=== PATIENT | male | born 1970 | race African-American/Black ===

== ENCOUNTER 2019-06-19 10:42 | Emergency (ER) | payer SELFPAY ==
[~2019-06-19] VITALS: Ht 180.3 cm; Wt 108.9 kg
[~2019-06-19 10:42] MED LIST: ASPI-630 PO; CARV12.511 PO; FURO-68 PO; LEVO500T59 PO; LISI-334 PO; POTA20TA4 PO; PRED-220 PO
--- NOTE | 2019-06-19 11:24 | PHYS DOC ---
Past Medical History Past Medical History: CHF, Hypertension Past Surgical History: No Surgical History Alcohol Use: Occasionally Drug Use: None Adult General Chief Complaint Chief Complaint: SHORTNESS OF BREATH HPI HPI Patient is a 48 year old AA who presents to the emergency Department today with complaints of shortness of breath for the last 2 weeks. Patient states his symptoms have gradually increased. He has history of congestive heart failure and states that he has been taking his Lasix as prescribed. He has been out of one of his blood pressure medications for the last 2 weeks. Patient denies any productive cough, fever, abdominal pain, chest pain, palpitations, nausea, vomiting, diarrhea, or abdominal pain. He denies any recent travel via air or long car rides. Patient denies any increase in lower extremity swelling. He states that 6 months ago he was diagnosed with left ventricle failure and admit ninoska to a different facility for a brief hospital stay at that time. He currently denies any pain, he reports generalized weakness and fatigue. Review of Systems Review of Systems Constitutional: Denies fever or chills [] Eyes: Denies change in visual acuity, redness, or eye pain [] HENT: Denies nasal congestion or sore throat [] Respiratory: Denies cough or wheezing, see HPI Cardiovascular: No additional information not addressed in HPI [] GI: Denies abdominal pain, nausea, vomiting, or diarrhea [] : Denies dysuria or hematuria [] Musculoskeletal: Denies back pain or joint pain [] Integument: Denies rash or skin lesions [] Neurologic: Denies headache, focal weakness or sensory changes [] Complete systems were reviewed and found to be within normal limits, except as documented in this note. Allergies Allergies Allergies Coded Allergies Type Severity Reaction Last Updated Verified No Known Drug Allergies 07/05/15 No Physical Exam Physical Exam Constitutional: Well developed, well nourished, no acute distress, non-toxic appearance. [] HENT: Normocephalic, atraumatic, bilateral external ears normal, oropharynx moist, no oral exudates, nose normal. [] Eyes: PERRLA, EOMI, conjunctiva normal, no discharge. [] Neck: Normal range of motion, no tenderness, supple, no stridor. [] Cardiovascular:Heart rate regular tachycardic rhythm, no murmur [] Lungs & Thorax: Bilateral breath sounds clear to auscultation, no retractions, no increased work of breathing [] Abdomen: soft, no tenderness, no masses, no pulsatile masses. [] Skin: Warm, dry, no erythema, no rash. [] Back: No tenderness Extremities: No tenderness, no cyanosis, no clubbing, ROM intact, no edema. [] Neurologic: Alert and oriented X 3, no focal deficits noted. [] Psychologic: Affect normal, judgement normal, mood normal. [] Current Patient Data Vital Signs Vital Signs Date Time Temp Pulse Resp B/P (MAP) Pulse Ox O2 Delivery O2 Flow Rate FiO2 06/19/19 12:30 103 18 128/81 (97) 97 Room Air 06/19/19 11:12 98.6 98.6 Lab Values Laboratory Tests Test 06/19/19 11:29 White Blood Count 5.9 x10^3/uL (4.0-11.0) Red Blood Count 4.49 x10^6/uL (4.30-5.70) Hemoglobin 14.2 g/dL (13.0-17.5) Hematocrit 42.3 % (39.0-53.0) Mean Corpuscular Volume 94 fL (79-100) Mean Corpuscular Hemoglobin 32 pg (25-35) Mean Corpuscular Hemoglobin Concent 34 g/dL (31-37) Red Cell Distribution Width 14.2 % (11.5-14.5) Platelet Count 193 x10^3/uL (140-400) Neutrophils (%) (Auto) 59 % (31-73) Lymphocytes (%) (Auto) 22 % (24-48) L Monocytes (%) (Auto) 11 % (0-9) H Eosinophils (%) (Auto) 6 % (0-3) H Basophils (%) (Auto) 2 % (0-3) Neutrophils # (Auto) 3.5 x10^3/uL (1.8-7.7) Lymphocytes # (Auto) 1.3 x10^3/uL (1.0-4.8) Monocytes # (Auto) 0.6 x10^3/uL (0.0-1.1) Eosinophils # (Auto) 0.4 x10^3/uL (0.0-0.7) Basophils # (Auto) 0.1 x10^3/uL (0.0-0.2) Prothrombin Time 13.2 SEC (11.7-14.0) Prothrombin Time INR 1.0 (0.8-1.1) Activated Partial Thromboplast Time 25 SEC (24-38) Sodium Level 142 mmol/L (136-145) Potassium Level 4.7 mmol/L (3.5-5.1) Chloride Level 105 mmol/L (98-107) Carbon Dioxide Level 25 mmol/L (21-32) Anion Gap 12 (6-14) Blood Urea Nitrogen 11 mg/dL (8-26) Creatinine 1.0 mg/dL (0.7-1.3) Estimated GFR (Cockcroft-Gault) 95.7 BUN/Creatinine Ratio 11 (6-20) Glucose Level 202 mg/dL (70-99) H Calcium Level 8.3 mg/dL (8.5-10.1) L Magnesium Level 1.9 mg/dL (1.8-2.4) Total Bilirubin 0.3 mg/dL (0.2-1.0) Aspartate Amino Transferase (AST) 18 U/L (15-37) Alanine Aminotransferase (ALT) 19 U/L (16-63) Alkaline Phosphatase 59 U/L (46-116) Troponin I Quantitative < 0.017 ng/mL (0.000-0.055) IU-Mob-H-Type Natriuretic Peptide 1621 pg/mL (0-124) H Total Protein 6.7 g/dL (6.4-8.2) Albumin 3.5 g/dL (3.4-5.0) Albumin/Globulin Ratio 1.1 (1.0-1.7) Laboratory Tests 06/19/19 11:29 Laboratory Tests 06/19/19 11:29 EKG EKG 1122- sinus tachycardia, rate 101, NO STEMI read by Dr. Avila[] Radiology/Procedures Radiology/Procedures PROCEDURE: CHEST PA & LATERAL CHEST PA LATERAL Clinical indications: Shortness of air. COMPARISON: July 19, 2015. Findings: Mild bilateral peribronchial thickening is seen. No lung consolidation or lung mass or pleural effusion or pneumothorax is evident. Mild cardiomegaly is evident. The pulmonary vasculature, mediastinum and both vivian are otherwise unremarkable. The osseous structures are intact. Impression: Acute bronchitis. No consolidative pneumonia. Mild cardiomegaly. [] Course & Med Decision Making Course & Med Decision Making Pertinent Labs and Imaging studies reviewed. (See chart for details) [] Dragon Disclaimer Dragon Disclaimer This electronic medical record was generated, in whole or in part, using a voice recognition dictation system. Departure Departure Impression: Primary Impression: Bronchitis Disposition: 01 HOME, SELF-CARE Condition: STABLE Referrals: JOHNNY LUNA MD Patient Instructions: Acute Bronchitis, [id number] Additional Instructions: Fill the prescription and use as directed. Follow up with Dr. Luna tomorrow. Return to the ER if symptoms worsen. Scripts Azithromycin (AZITHROMYCIN TABLET) 250 Mg Tablet 1 PKG PO UD for 5 Days, #6 TAB 0 Refills 2 the first day followed by 1 for days 2-5 Prov: FELICITAS SALDIVAR APRN 06/19/19 FELICITAS SALDIVAR APRN Jun 19, 2019 11:24
[2019-06-19 11:40] LABS: BASO # 0.1 x10^3/uL (0.0-0.2); BASO % 2 % (0-3); EOS # 0.4 x10^3/uL (0.0-0.7); EOS % 6 % (0-3); HEMATOCRIT 42.3 % (39.0-53.0); HEMOGLOBIN 14.2 g/dL (13.0-17.5); LYMPH # 1.3 x10^3/uL (1.0-4.8); LYMPH % 22 % (24-48); MEAN CORPUSCULAR HEMOGLOBIN 32 pg (25-35); MEAN CORPUSCULAR HGB CONC 34 g/dL (31-37); MEAN CORPUSCULAR VOLUME 94 fL (79-100); MONO # 0.6 x10^3/uL (0.0-1.1); MONO % 11 % (0-9); NEUT # 3.5 x10^3/uL (1.8-7.7); NEUT % 59 % (31-73); PLATELET COUNT 193 x10^3/uL (140-400); RED BLOOD COUNT 4.49 x10^6/uL (4.30-5.70); RED CELL DISTRIBUTION WIDTH 14.2 % (11.5-14.5); WHITE BLOOD COUNT 5.9 x10^3/uL (4.0-11.0)
[2019-06-19 11:49] LABS: CALCIUM 8.3 mg/dL (8.5-10.1); GFR 95.7; POTASSIUM 4.7 mmol/L (3.5-5.1)
[2019-06-19 11:55] LABS: ALBUMIN 3.5 g/dL (3.4-5.0); ALBUMIN/GLOBULIN RATIO 1.1 (1.0-1.7); MAGNESIUM 1.9 mg/dL (1.8-2.4); TOTAL BILIRUBIN 0.3 mg/dL (0.2-1.0); TOTAL PROTEIN 6.7 g/dL (6.4-8.2)
[2019-06-19 11:57] LABS: PROTHROMBIN TIME PATIENT 13.2 SEC (11.7-14.0)
--- NOTE | 2019-06-19 12:00 | EKG ---
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
--- NOTE | 2019-06-19 12:03 | RAD ---
CHEST PA LATERAL Clinical indications: Shortness of air. COMPARISON: July 19, 2015. Findings: Mild bilateral peribronchial thickening is seen. No lung consolidation or lung mass or pleural effusion or pneumothorax is evident. Mild cardiomegaly is evident. The pulmonary vasculature, mediastinum and both vivian are otherwise unremarkable. The osseous structures are intact. Impression: Acute bronchitis. No consolidative pneumonia. Mild cardiomegaly. Electronically signed by: Cecil Massey MD (06/19/2019 12:00 PM) [id number]
[2019-06-19 12:30] VITALS: BP 128/81
[2019-06-19] MEDS ORDERED: AZIT250T6 PO (12:53)
== END 2019-06-19 13:00 | disposition home or self-care (01) ==
LOC: ER 10:42
DX: J40 Bronchitis, not specified as acute or chronic (principal); I11.0 Hypertensive heart disease with heart failure; I50.9 Heart failure, unspecified
CPT/HCPCS: 36415; 71046; 80053; 83735; 83880; 84484; 85025; 85610; 85730; 93005; 99285-25

== ENCOUNTER 2019-07-04 07:35 | Inpatient (IN) | payer SELFPAY ==
[~2019-07-04] VITALS: Ht 180.3 cm; Wt 109.8 kg
[~2019-07-04 07:35] MED LIST changes: +AZIT250T6 PO
--- NOTE | 2019-07-04 07:55 | PHYS DOC ---
Past Medical History Past Medical History: Bronchitis, CHF, Hypertension Past Surgical History: No Surgical History Additional Past Surgical Histo: HERNIA Alcohol Use: Heavy Drug Use: None Adult General Chief Complaint Chief Complaint: SHORTNESS OF BREATH HPI HPI 48 yo male presents to the ER with complaints of SOB, abdominal pain, nausea. Patient states ongoing x 4 days, nothing makes worse, nothing makes better. Patient denies chest pain. Review of Systems Review of Systems Constitutional: Denies fever or chills [] Eyes: Denies change in visual acuity, redness, or eye pain [] HENT: Denies nasal congestion or sore throat [] Respiratory: Denies cough or shortness of breath [] Cardiovascular: No additional information not addressed in HPI [] GI: Denies abdominal pain, nausea, vomiting, bloody stools or diarrhea [] : Denies dysuria or hematuria [] Musculoskeletal: Denies back pain or joint pain [] Integument: Denies rash or skin lesions [] Neurologic: Denies headache, focal weakness or sensory changes [] Endocrine: Denies polyuria or polydipsia [] All other systems were reviewed and found to be within normal limits, except as documented in this note. Current Medications Current Medications Current Medications Medications (Trade) Dose Ordered Sig/Porsche Start Time Stop Time Status Last Admin Dose Admin Info (CONTRAST GIVEN -- Rx MONITORING) 1 each PRN DAILY PRN 07/04/19 09:45 07/06/19 09:44 Iohexol (Omnipaque 300 Mg/ml) 75 ml 1X ONCE 07/04/19 09:45 07/04/19 09:47 DC 07/04/19 10:10 75 ML Iohexol (Omnipaque 350 Mg/ml) 75 ml 1X ONCE 07/04/19 09:45 07/04/19 09:46 DC Morphine Sulfate (Morphine Sulfate) 4 mg 1X ONCE 07/04/19 09:00 07/04/19 09:01 DC Ondansetron HCl (Zofran) 4 mg 1X ONCE 07/04/19 09:00 07/04/19 09:01 DC Allergies Allergies Allergies Coded Allergies Type Severity Reaction Last Updated Verified No Known Drug Allergies 07/05/15 No Physical Exam Physical Exam Constitutional: Well developed, well nourished, no acute distress, non-toxic a ppearance. [] HENT: Normocephalic, atraumatic, bilateral external ears normal, oropharynx moist, no oral exudates, nose normal. [] Cardiovascular:Heart rate regular rhythm, no murmur [] Lungs & Thorax: Bilateral breath sounds clear to auscultation [] Abdomen: distention, no masses appreciated, nontender on exam Skin: Warm, dry, no erythema, no rash. [] Back: No tenderness, no CVA tenderness. [] Extremities: No tenderness, no cyanosis, no clubbing, ROM intact, no edema. [] Neurologic: Alert and oriented X 3, no focal deficits noted. [] Psychologic: Affect normal, judgement normal, mood normal. [] Current Patient Data Vital Signs Vital Signs Date Time Temp Pulse Resp B/P (MAP) Pulse Ox O2 Delivery O2 Flow Rate FiO2 07/04/19 07:38 97.4 93 20 146/99 (115) 96 Room Air 97.4 Lab Values Laboratory Tests Test 07/04/19 08:03 White Blood Count 6.1 x10^3/uL (4.0-11.0) Red Blood Count 4.61 x10^6/uL (4.30-5.70) Hemoglobin 14.4 g/dL (13.0-17.5) Hematocrit 43.1 % (39.0-53.0) Mean Corpuscular Volume 94 fL (79-100) Mean Corpuscular Hemoglobin 31 pg (25-35) Mean Corpuscular Hemoglobin Concent 34 g/dL (31-37) Red Cell Distribution Width 14.1 % (11.5-14.5) Platelet Count 250 x10^3/uL (140-400) Neutrophils (%) (Auto) 58 % (31-73) Lymphocytes (%) (Auto) 24 % (24-48) Monocytes (%) (Auto) 11 % (0-9) H Eosinophils (%) (Auto) 6 % (0-3) H Basophils (%) (Auto) 1 % (0-3) Neutrophils # (Auto) 3.5 x10^3/uL (1.8-7.7) Lymphocytes # (Auto) 1.5 x10^3/uL (1.0-4.8) Monocytes # (Auto) 0.7 x10^3/uL (0.0-1.1) Eosinophils # (Auto) 0.4 x10^3/uL (0.0-0.7) Basophils # (Auto) 0.1 x10^3/uL (0.0-0.2) Sodium Level 141 mmol/L (136-145) Potassium Level 4.0 mmol/L (3.5-5.1) Chloride Level 102 mmol/L (98-107) Carbon Dioxide Level 29 mmol/L (21-32) Anion Gap 10 (6-14) Blood Urea Nitrogen 19 mg/dL (8-26) Creatinine 1.2 mg/dL (0.7-1.3) Estimated GFR (Cockcroft-Gault) 77.5 BUN/Creatinine Ratio 16 (6-20) Glucose Level 95 mg/dL (70-99) Calcium Level 8.1 mg/dL (8.5-10.1) L Total Bilirubin 0.5 mg/dL (0.2-1.0) Aspartate Amino Transferase (AST) 39 U/L (15-37) H Alanine Aminotransferase (ALT) 51 U/L (16-63) Alkaline Phosphatase 78 U/L (46-116) WI-Pgw-Y-Type Natriuretic Peptide 1829 pg/mL (0-124) H Total Protein 6.4 g/dL (6.4-8.2) Albumin 3.1 g/dL (3.4-5.0) L Albumin/Globulin Ratio 0.9 (1.0-1.7) L Laboratory Tests 07/04/19 08:03 Laboratory Tests 07/04/19 08:03 EKG EKG EKG reviewed, NSR, left axis deviation, nonurgent EKG[] Interpretation Time: 0800 Radiology/Procedures Radiology/Procedures [facility] [address] [place], [place] [id number] IMAGING REPORT Signed PATIENT: RICARDO HUTSON ACCOUNT: [id number] : 1970 LOCATION: ER AGE: 48 SEX: M EXAM STATUS: REG ER ORD. PHYSICIAN: EVELYN SMITH MD REASON: chest pain PROCEDURE: CHEST AP ONLY CHEST AP ONLY History: Chest pain Comparison: June 19, 2019 Findings: No consolidation or pleural effusion. Enlarged cardiac size. Impression: 1. No acute cardiopulmonary process. 2. Enlarged cardiac size, unchanged. Electronically signed by: Kevin Hicks DO (07/04/2019 8:03 AM) [facility] DICTATED and SIGNED BY: KEVIN HICKS DO DATE: 07/04/19 0803 [] [facility] [address] [place] [address] IMAGING REPORT Signed PATIENT: RICARDO HUTSON ACCOUNT: [id number] : 1970 LOCATION: ER AGE: 48 SEX: M EXAM STATUS: REG ER ORD. PHYSICIAN: EVELYN SMITH MD REASON: abdominal pain PROCEDURE: CT ABD PELV W/ IV CONTRST ONLY CT ABD PELV W/ IV CONTRST ONLY History: Abdominal pain Comparison: None. Technique: After administration of intravenous contrast, helical CT of the abdomen and pelvis was performed from the lung bases through the ischial tuberosities. Coronal and sagittal reconstructions were obtained. 75 mL of Omnipaque 300 were used. One or more of the following dose reduction techniques were utilized: Automated exposure control (AEC), Adjustment of mA and/or kV according to patient size, Use of iterative reconstruction technique such as ASiR, CT scan done according to ALARA and image gently/image wisely Abdomen Findings: The visualized lung bases are clear. Cardiomegaly. Moderate free fluid scattered throughout the abdomen. No focal hepatic lesion. Gallbladder is decompressed. Homogeneous pancreatic enhancement. Normal spleen. Normal adrenal glands. Symmetric renal enhancement. No hydronephrosis. Stomach is decompressed and poorly evaluated. No dilated large or small bowel loops. Appendix not seen. Normal caliber abdominal aorta. Minimal aortic atherosclerotic disease. There is no mesenteric or retroperitoneal adenopathy. Pelvis Findings: Urinary bladder is normal. There is no pelvic or inguinal adenopathy. Degenerative changes of the spine. Body wall edema. IMPRESSION: 1. There is a moderate amount of free fluid scattered throughout the abdomen. No organized collection. 2. No other focal acute abdominal process is seen. Normal caliber bowel. Electronically signed by: Selene Tadeo MD (07/04/2019 10:30 AM) [facility] DICTATED and SIGNED BY: SELENE TADEO MD DATE: 07/04/19 1030 Course & Med Decision Making Course & Med Decision Making Pertinent Labs and Imaging studies reviewed. (See chart for details) []48 yo male presents to the ER with complaints of SOB, abdominal pain, nausea. Patient states ongoing x 4 days, nothing makes worse, nothing makes better. Patient denies chest pain. Labs/Imaging reviewed BNP 1829 Morphine 4mg/Zofran 4mg IV x [address] reviewed with large amount of ascites Dragon Disclaimer Dragon Disclaimer This electronic medical record was generated, in whole or in part, using a voice recognition dictation system. Departure Departure Impression: Primary Impression: Abdominal pain Additional Impression: Ascites Disposition: ADMITTED INPATIENT Admitting Physician: HIMS Condition: STABLE Referrals: NO PCP (PCP) Problem Qualifiers Primary Impression: Abdominal pain Abdominal location: generalized Qualified Codes: R10.84 - Generalized abdominal pain Additional Impression: Ascites Ascites type: other type Qualified Codes: R18.8 - Other ascites EVELYN SMITH MD Jul 04, 2019 07:55
--- NOTE | 2019-07-04 08:06 | RAD ---
CHEST AP ONLY History: Chest pain Comparison: June 19, 2019 Findings: No consolidation or pleural effusion. Enlarged cardiac size. Impression: 1. No acute cardiopulmonary process. 2. Enlarged cardiac size, unchanged. Electronically signed by: Kevin Odom DO (07/04/2019 8:03 AM) [facility]
[2019-07-04 08:20] LABS: BASO # 0.1 x10^3/uL (0.0-0.2); BASO % 1 % (0-3); EOS # 0.4 x10^3/uL (0.0-0.7); EOS % 6 % (0-3); HEMATOCRIT 43.1 % (39.0-53.0); HEMOGLOBIN 14.4 g/dL (13.0-17.5); LYMPH # 1.5 x10^3/uL (1.0-4.8); LYMPH % 24 % (24-48); MEAN CORPUSCULAR HEMOGLOBIN 31 pg (25-35); MEAN CORPUSCULAR HGB CONC 34 g/dL (31-37); MEAN CORPUSCULAR VOLUME 94 fL (79-100); MONO # 0.7 x10^3/uL (0.0-1.1); MONO % 11 % (0-9); NEUT # 3.5 x10^3/uL (1.8-7.7); NEUT % 58 % (31-73); PLATELET COUNT 250 x10^3/uL (140-400); RED BLOOD COUNT 4.61 x10^6/uL (4.30-5.70); RED CELL DISTRIBUTION WIDTH 14.1 % (11.5-14.5); WHITE BLOOD COUNT 6.1 x10^3/uL (4.0-11.0)
[2019-07-04 08:27] LABS: CALCIUM 8.1 mg/dL (8.5-10.1); CREATININE 1.2 mg/dL (0.7-1.3); GFR 77.5
[2019-07-04 08:33] LABS: ALBUMIN 3.1 g/dL (3.4-5.0); ALBUMIN/GLOBULIN RATIO 0.9 (1.0-1.7); TOTAL BILIRUBIN 0.5 mg/dL (0.2-1.0); TOTAL PROTEIN 6.4 g/dL (6.4-8.2)
[2019-07-04] MEDS ORDERED: MORPHINE SULFATE 4 MG/ML VIAL. IV ONE ×2 (09:00→10:45)
[2019-07-04] MEDS ORDERED: ONDANSETRON PF 4 MG/2 ML VIAL. IV ONE (09:00)
[2019-07-04] MEDS ORDERED: IOHEXOL 300 MG/ML 100ML VIAL. IV ONE (09:45)
[2019-07-04] MEDS ORDERED: IOHEXOL 350 MG/ML 100 ML VIAL. IV ONE (09:45)
[2019-07-04] MEDS ORDERED: CONTRAST GIVEN. MC PRN (09:45)
--- NOTE | 2019-07-04 10:33 | RAD ---
CT ABD PELV W/ IV CONTRST ONLY History: Abdominal pain Comparison: None. Technique: After administration of intravenous contrast, helical CT of the abdomen and pelvis was performed from the lung bases through the ischial tuberosities. Coronal and sagittal reconstructions were obtained. 75 mL of Omnipaque 300 were used. One or more of the following dose reduction techniques were utilized: Automated exposure control (AEC), Adjustment of mA and/or kV according to patient size, Use of iterative reconstruction technique such as ASiR, CT scan done according to ALARA and image gently/image wisely Abdomen Findings: The visualized lung bases are clear. Cardiomegaly. Moderate free fluid scattered throughout the abdomen. No focal hepatic lesion. Gallbladder is decompressed. Homogeneous pancreatic enhancement. Normal spleen. Normal adrenal glands. Symmetric renal enhancement. No hydronephrosis. Stomach is decompressed and poorly evaluated. No dilated large or small bowel loops. Appendix not seen. Normal caliber abdominal aorta. Minimal aortic atherosclerotic disease. There is no mesenteric or retroperitoneal adenopathy. Pelvis Findings: Urinary bladder is normal. There is no pelvic or inguinal adenopathy. Degenerative changes of the spine. Body wall edema. IMPRESSION: 1. There is a moderate amount of free fluid scattered throughout the abdomen. No organized collection. 2. No other focal acute abdominal process is seen. Normal caliber bowel. Electronically signed by: Aidan Tadeo MD (07/04/2019 10:30 AM) [facility]
[2019-07-04] MEDS ORDERED: MORPHINE SULFATE 2 MG/ML VIAL. IV PRN (11:15)
[2019-07-04] MEDS ORDERED: ONDANSETRON PF 4 MG/2 ML VIAL. IV PRN (11:15)
[2019-07-04 11:30] VITALS: BP 157/109
--- NOTE | 2019-07-04 12:00 | EKG ---
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
--- NOTE | 2019-07-04 13:46 | PDOC2 ---
GI CONSULT Reason For Consult: Ascites HPI: HPI: 48 y/o male admitted through ER. Recent diagnosis of bronchitis - given azithromycin but couldn't fill right away due to finances, is on day #3. Also out of his potassium pill and one of his BP meds. Cough has improved, still has shortness of breath when lying down. Has a "beer gut," but has had some lower abdominal cramping with walking and increased distention recently along w/ intermittent nausea. Similar symptoms when hospitalized w/ CHF in [place] - abdominal symptoms improved w/ treatment of heart failure. H/o GERD - no longer bothersome. No dysphagia, vomiting, diarrhea, constipation, hematochezia, melena, or change in appetite. No previous EGD or colonoscopy. Denies GB, liver, pancreas, or PUD history. Takes ibuprofen PRN. Chart lists ASA - he denies. Moved back to this area from [place] recently, hasn't resumed care with PCP - used to see Dr. Vo. 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 He'd like to be discharged [place] because he's supposed to work all weekend and he needs the money and currently feels much better after morphine. 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 Supportive girlfriend Mary present. PMH: PMH: CHF, pneumonia, bronchitis, HTN, ?HLD, DDD, allergic rhinitis, gout umbilical hernia repair FH: Family History: CAD Social History: Smoke: No (recent vaping) ALCOHOL: heavy (4 tall beers daily plus a shot of efren) Drugs: None ROS: GEN: Denies fevers, chills, sweats HEENT: Denies blurred vision, sore throat CV: Denies chest pain RESP: +SOA GI: Per HPI : Denies hematuria, dysuria ENDO: +weight gain NEURO: Denies confusion, dizziness MSK: Denies weakness, joint pain/swelling SKIN: Denies jaundice, pruritus Vitals: Vitals: Vital Signs Date Time Temp Pulse Resp B/P (MAP) Pulse Ox O2 Delivery O2 Flow Rate FiO2 07/04/19 11:30 98.0 97 16 157/109 (125) 96 Room Air 98.0 Labs: Labs: Laboratory Tests Test 07/04/19 08:03 White Blood Count 6.1 x10^3/uL (4.0-11.0) Red Blood Count 4.61 x10^6/uL (4.30-5.70) Hemoglobin 14.4 g/dL (13.0-17.5) Hematocrit 43.1 % (39.0-53.0) Mean Corpuscular Volume 94 fL (79-100) Mean Corpuscular Hemoglobin 31 pg (25-35) Mean Corpuscular Hemoglobin Concent 34 g/dL (31-37) Red Cell Distribution Width 14.1 % (11.5-14.5) Platelet Count 250 x10^3/uL (140-400) Neutrophils (%) (Auto) 58 % (31-73) Lymphocytes (%) (Auto) 24 % (24-48) Monocytes (%) (Auto) 11 % (0-9) Eosinophils (%) (Auto) 6 % (0-3) Basophils (%) (Auto) 1 % (0-3) Neutrophils # (Auto) 3.5 x10^3/uL (1.8-7.7) Lymphocytes # (Auto) 1.5 x10^3/uL (1.0-4.8) Monocytes # (Auto) 0.7 x10^3/uL (0.0-1.1) Eosinophils # (Auto) 0.4 x10^3/uL (0.0-0.7) Basophils # (Auto) 0.1 x10^3/uL (0.0-0.2) Sodium Level 141 mmol/L (136-145) Potassium Level 4.0 mmol/L (3.5-5.1) Chloride Level 102 mmol/L (98-107) Carbon Dioxide Level 29 mmol/L (21-32) Anion Gap 10 (6-14) Blood Urea Nitrogen 19 mg/dL (8-26) Creatinine 1.2 mg/dL (0.7-1.3) Estimated GFR (Cockcroft-Gault) 77.5 BUN/Creatinine Ratio 16 (6-20) Glucose Level 95 mg/dL (70-99) Calcium Level 8.1 mg/dL (8.5-10.1) Total Bilirubin 0.5 mg/dL (0.2-1.0) Aspartate Amino Transf (AST/SGOT) 39 U/L (15-37) Alanine Aminotransferase (ALT/SGPT) 51 U/L (16-63) Alkaline Phosphatase 78 U/L (46-116) WE-Dws-Z-Type Natriuretic Peptide 1829 pg/mL (0-124) Total Protein 6.4 g/dL (6.4-8.2) Albumin 3.1 g/dL (3.4-5.0) Albumin/Globulin Ratio 0.9 (1.0-1.7) Allergies: Coded Allergies: No Known Drug Allergies (Unverified , 07/05/15) Medications: Current Medications Medications (Trade) Dose Ordered Sig/Porsche Route PRN Reason Start Time Stop Time Status Last Admin Dose Admin Morphine Sulfate (Morphine Sulfate) 4 mg 1X ONCE IV 07/04/19 09:00 07/04/19 09:01 DC 07/04/19 10:45 Ondansetron HCl (Zofran) 4 mg 1X ONCE IV 07/04/19 09:00 07/04/19 09:01 DC 07/04/19 10:42 Iohexol (Omnipaque 300 Mg/ml) 75 ml 1X ONCE IV 07/04/19 09:45 07/04/19 09:47 DC 07/04/19 10:10 Imaging: Imaging: CXR Impression: 1. No acute cardiopulmonary process. 2. Enlarged cardiac size, unchanged. CT A/P IMPRESSION: 1. There is a moderate amount of free fluid scattered throughout the abdomen. No organized collection. 2. No other focal acute abdominal process is seen. Normal caliber bowel. PE: GEN: NAD HEENT: Atraumatic, PERRL LUNGS: CTAB HEART: RRR ABD: NABS, round/some distention but not tight, currently non-tender EXTREMITY: No edema SKIN: No rashes, no jaundice NEURO/PSYCH: A & O 3 A/P: A/P: Orthopnea, abd distention/cramping Elevated BNP, stable cardiomegaly, h/o heart failure Recent bronchitis on atbx Mildly elevated AST Abnormal CT - moderate amount of free fluid scattered throughout the abdomen H/o heartburn - no longer bothersome CRC screen - none, average risk PRN NSAID use, recent vaping, daily alcohol -- Reviewed w/ Dr. Casanova - check US and ask for paracentesis. ?cardiology consult CHERYL SMITH Jul 04, 2019 13:46
--- NOTE | 2019-07-04 14:39 | HP ---
ADMIT DATE: 07/04/2019 CHIEF COMPLAINT: Abdominal swelling. HISTORY OF PRESENT ILLNESS: The patient is a pleasant middle-aged male who presents with shortness of breath and abdominal swelling, it has been occurring for several days. He tried taking [id number] meds, but that was not working. He rates it as 7 out of 10. He has associated weakness. I discussed the case with ER physician. It appears the patient has ascites. He does drink at least 4 large beers a day, but he also has heart failure. We suspect this could be new ascites from liver disease and/or contribution from his heart failure, but his lower extremities are not swollen. He usually states that this is what happens anyway we are going to admit the patient and consult GI and Cardiology. PAST MEDICAL HISTORY: CHF, alcohol issues, bronchitis, hypertension and hernia repair. ALLERGIES: None. FAMILY HISTORY: Diabetes. SOCIAL HISTORY: He drinks heavily. No smoking or drugs. 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 MEDICATIONS: Reviewed, please refer to the MRAD. REVIEW OF SYSTEMS: GENERAL: No history of weight change, weakness or fevers. SKIN: No bruising, hair changes or rashes. EYES: No blurred, double or loss of vision. NOSE AND THROAT: No history of nosebleeds, hoarseness or sore throat. HEART: No history of palpitations, chest pain or shortness of breath on exertion. PULMONARY: He complains of shortness of breath. GASTROINTESTINAL: He complains of abdominal distention.. GENITOURINARY: No history of frequency, urgency, hesitancy or nocturia. NEUROLOGIC: Denies history of numbness, tingling, tremor or weakness. PSYCHIATRIC: No history of panic, anxiety or depression. ENDOCRINE: No history of heat or cold intolerance, polyuria or polydipsia. EXTREMITIES: Denies muscle weakness, joint pain, pain on walking or stiffness. PHYSICAL EXAMINATION: VITALS: Within normal limits and are stable. GENERAL: No apparent distress. Alert and oriented. HEENT: Head is normocephalic, atraumatic, pupils were equally round and reactive to light and accommodation. NECK: Supple, no JVD, no thyromegaly was noted. LUNGS: Clear to auscultation in all lung whitehead without rhonchi or wheezing. HEART: RRR, S1, S2 present. Peripheral pulses intact, no obvious murmurs were noted. ABDOMEN: He has got large abdominal distention and ascites with a fluid wave.. EXTREMITIES: Without any cyanosis, clubbing, or edema. Pedal pulses intact, Homans sign is negative. NEUROLOGIC: Normal speech, normal tone. A and O x3, moves all extremities, no obvious focal deficits. PSYCHIATRIC: Normal affect, normal mood. Stable. SKIN: No ulcerations or rashes, good skin turgor, no jaundice. VASCULAR: Good capillary refill, neurovascular bundle appears to be intact. LABORATORY DATA: INR is pending. Electrolytes are normal. Hematology is normal. ASSESSMENT AND PLAN: New onset ascites. Suspect liver disease as he does drink heavy, but this could also be heart failure, perhaps even both. We are going to check serial enzymes, serial EKGs. Consult Cardiology, consult GI. Suspect he might need a paracentesis, DVT prophylaxis. I ordered an INR, home meds. PROGNOSIS: Guarded. CHUY SLAUGHTER DO DR: SAIRA/lubna JOB#: [id number] / [id number]
--- NOTE | 2019-07-04 14:45 | NUR ---
This RN received report from SAMIR Colon in ER. Pt arrived on unit accompanied by girlfriend. Pt oriented to room and call light. Pt given sherbet and sprite. No concerns at this time, will continue to monitor pt.
[2019-07-04 14:48] LABS: PROTHROMBIN TIME PATIENT 15.6 SEC (11.7-14.0)
[2019-07-04 15:00] VITALS: BP 106/81
--- NOTE | 2019-07-04 16:51 | RAD ---
[facility], LIMITED ABDOMINAL DOPPLER History: Free fluid on CT. Comparison: CT July 04, 2019. Technique: Transabdominal ultrasound images are obtained of the right upper quadrant. Doppler evaluation was performed of the hepatic an upper abdominal vessels. Findings: Visualized pancreas is not well seen due to overlying bowel gas Liver is normal in echogenicity. Right hepatic lobe measures 19.2 cm. Portal flow is hepatopedal. Gallbladder wall thickening measures up to 0.7 cm. No cholelithiasis. No pericholecystic fluid. Common bile duct caliber is normal measuring 7 mm in diameter. The right kidney measures 13.1 x 6.8 x 6.7 cm in length and is without evidence of obstruction or stone. Patent IVC. Small ascites mostly within the pelvis. Pulsatile flow within the portal veins and splenic vein. Patent hepatic veins. Patent hepatic artery with normal velocity. IMPRESSION: 1. Hepatomegaly and ascites. 2. Pulsatile flow within the portal and splenic veins, may indicate chronic liver disease. 3. Gallbladder wall thickening, may relate to chronic liver disease. Electronically signed by: Kevin Odom DO (07/04/2019 4:47 PM) [id number]
--- NOTE | 2019-07-04 16:51 | RAD ---
[facility], LIMITED ABDOMINAL DOPPLER History: Free fluid on CT. Comparison: CT July 04, 2019. Technique: Transabdominal ultrasound images are obtained of the right upper quadrant. Doppler evaluation was performed of the hepatic an upper abdominal vessels. Findings: Visualized pancreas is not well seen due to overlying bowel gas Liver is normal in echogenicity. Right hepatic lobe measures 19.2 cm. Portal flow is hepatopedal. Gallbladder wall thickening measures up to 0.7 cm. No cholelithiasis. No pericholecystic fluid. Common bile duct caliber is normal measuring 7 mm in diameter. The right kidney measures 13.1 x 6.8 x 6.7 cm in length and is without evidence of obstruction or stone. Patent IVC. Small ascites mostly within the pelvis. Pulsatile flow within the portal veins and splenic vein. Patent hepatic veins. Patent hepatic artery with normal velocity. IMPRESSION: 1. Hepatomegaly and ascites. 2. Pulsatile flow within the portal and splenic veins, may indicate chronic liver disease. 3. Gallbladder wall thickening, may relate to chronic liver disease. Electronically signed by: Kevin Odom DO (07/04/2019 4:47 PM) [id number]
[2019-07-04 19:00] VITALS: BP 110/72
[2019-07-04] MEDS: SPIRONOLACTONE 25 MG TABLET PO SCH (19:28)
[2019-07-04 23:00] VITALS: BP 97/71
[2019-07-05 03:00] VITALS: BP 116/88
[2019-07-05 07:50] LABS: BASO % 0 % (0-3); EOS # 0.3 x10^3/uL (0.0-0.7); EOS % 4 % (0-3); HEMATOCRIT 42.7 % (39.0-53.0); HEMOGLOBIN 14.4 g/dL (13.0-17.5); LYMPH # 1.9 x10^3/uL (1.0-4.8); LYMPH % 29 % (24-48); MEAN CORPUSCULAR HEMOGLOBIN 31 pg (25-35); MEAN CORPUSCULAR HGB CONC 34 g/dL (31-37); MEAN CORPUSCULAR VOLUME 93 fL (79-100); MONO # 0.7 x10^3/uL (0.0-1.1); MONO % 11 % (0-9); NEUT # 3.7 x10^3/uL (1.8-7.7); NEUT % 56 % (31-73); PLATELET COUNT 230 x10^3/uL (140-400); RED BLOOD COUNT 4.61 x10^6/uL (4.30-5.70); RED CELL DISTRIBUTION WIDTH 14.1 % (11.5-14.5); WHITE BLOOD COUNT 6.5 x10^3/uL (4.0-11.0)
[2019-07-05 07:59] VITALS: BP 140/92
[2019-07-05] MEDS: SPIRONOLACTONE 25 MG TABLET PO SCH (08:54)
[2019-07-05] MEDS: PANTOPRAZOLE 40 MG TABLET.DR. PO SCH (08:54)
[2019-07-05 09:01] LABS: ALBUMIN 2.8 g/dL (3.4-5.0); ALBUMIN/GLOBULIN RATIO 0.8 (1.0-1.7); GFR 95.7; TOTAL BILIRUBIN 0.6 mg/dL (0.2-1.0); TOTAL PROTEIN 6.3 g/dL (6.4-8.2)
--- NOTE | 2019-07-05 11:36 | PDOC ---
[facility] PROGRESS NOTE Chief Complaint Chief Complaint Ascites Cirrhosis Abdominal swelling Alcohol dependance History of Present Illness History of Present Illness 07/05/2019 Pt was seen and examined. Reports he slept well last night. Understands that if he doesn't cease drinking he will most probably of cirrhosis/complications of cirrhosis in the very near future. Vitals/I&O Vitals/I&O: Vital Signs Date Time Temp Pulse Resp B/P (MAP) Pulse Ox O2 Delivery O2 Flow Rate FiO2 07/05/19 08:57 Room Air 07/05/19 07:59 98.0 106 20 140/92 (108) 92 98.0 I & O 07/04/19 07/04/19 07/05/19 15:00 23:00 07:00 Intake Total 350 ml 0 ml Balance 350 ml 0 ml Physical Exam General: Alert, Oriented X3, Cooperative Heart: Regular rate, Normal S1, Normal S2 Lungs: Clear Abdomen: Normal bowel sounds, Other (Abdomen is protuberant) Extremities: No clubbing, No cyanosis Skin: No rashes, No breakdown Labs Labs: Laboratory Tests Test 07/05/19 07:30 White Blood Count 6.5 x10^3/uL (4.0-11.0) Red Blood Count 4.61 x10^6/uL (4.30-5.70) Hemoglobin 14.4 g/dL (13.0-17.5) Hematocrit 42.7 % (39.0-53.0) Mean Corpuscular Volume 93 fL (79-100) Mean Corpuscular Hemoglobin 31 pg (25-35) Mean Corpuscular Hemoglobin Concent 34 g/dL (31-37) Red Cell Distribution Width 14.1 % (11.5-14.5) Platelet Count 230 x10^3/uL (140-400) Neutrophils (%) (Auto) 56 % (31-73) Lymphocytes (%) (Auto) 29 % (24-48) Monocytes (%) (Auto) 11 % (0-9) Eosinophils (%) (Auto) 4 % (0-3) Basophils (%) (Auto) 0 % (0-3) Neutrophils # (Auto) 3.7 x10^3/uL (1.8-7.7) Lymphocytes # (Auto) 1.9 x10^3/uL (1.0-4.8) Monocytes # (Auto) 0.7 x10^3/uL (0.0-1.1) Eosinophils # (Auto) 0.3 x10^3/uL (0.0-0.7) Basophils # (Auto) 0.0 x10^3/uL (0.0-0.2) Sodium Level 138 mmol/L (136-145) Potassium Level 4.0 mmol/L (3.5-5.1) Chloride Level 103 mmol/L (98-107) Carbon Dioxide Level 26 mmol/L (21-32) Anion Gap 9 (6-14) Blood Urea Nitrogen 18 mg/dL (8-26) Creatinine 1.0 mg/dL (0.7-1.3) Estimated GFR (Cockcroft-Gault) 95.7 BUN/Creatinine Ratio 18 (6-20) Glucose Level 86 mg/dL (70-99) Calcium Level 8.0 mg/dL (8.5-10.1) Total Bilirubin 0.6 mg/dL (0.2-1.0) Aspartate Amino Transf (AST/SGOT) 37 U/L (15-37) Alanine Aminotransferase (ALT/SGPT) 46 U/L (16-63) Alkaline Phosphatase 67 U/L (46-116) Total Protein 6.3 g/dL (6.4-8.2) Albumin 2.8 g/dL (3.4-5.0) Albumin/Globulin Ratio 0.8 (1.0-1.7) Review of Systems Review of Systems: Denies CP Denies SOB Denies N/V/D Assessment and Plan Assessmemt and Plan Problems Medical Problems: (1) Abdominal pain Status: Acute (2) Ascites Status: Acute (3) Shortness of breath Status: Acute Alcohol dependance Ascites Cirrhosis Enlarged abdomen Plan: 1) Encouraged patient to cease alcohol use 2) Await GI recommendations in regards to paracentesis 3) Ful code 4) DVT prophylaxis 5) PT/OT Comment Review of Relevant I have reviewed the following items sujit (where applicable) has been applied. Medications: Current Medications Medications (Trade) Dose Ordered Sig/Porsche Route PRN Reason Start Time Stop Time Status Last Admin Dose Admin Pantoprazole Sodium (Protonix) 40 mg DAILYAC PO 07/05/19 07:30 07/05/19 08:54 Spironolactone (Aldactone) 100 mg DAILY PO 07/04/19 17:30 07/05/19 08:54 CHUY SLAUGHTER III DO Jul 05, 2019 11:36
--- NOTE | 2019-07-05 11:48 | PDOC2 ---
CONSULT Date of Consult Date of Consult DATE: 07/05/19 TIME: 11:48 Reason for Consult Reason for Consult: Possible CHF Referring Physician Referring Physician: Dr. Edge Identification/Chief Complaint Chief Complaint Shortness of breath Source Source: Chart review, Patient History of Present Illness Reason for Visit: 48-year-old male presented with progressive shortness of breath, abdominal pain and distention and nausea. He was diagnosed with sinusitis possibly from alcoholic liver disease. Cardiology has been consulted to rule out congestive heart failure as a cause of his symptoms. He denied any chest pain, palpitations or syncope. He denied any previous history of coronary artery disease. Past Medical History Cardiovascular: CHF, HTN, Hyperlipidemia Musculoskeletal: low back pain Family History Family History: Coronary Artery Disease, High Cholestrol Social History No (recent vaping) ALCOHOL: heavy (4 tall beers daily plus a shot of efren) Drugs: None Current Problem List Problem List Problems Medical Problems: (1) Abdominal pain Status: Acute (2) Ascites Status: Acute (3) Shortness of breath Status: Acute Current Medications Current Medications Current Medications Morphine Sulfate (Morphine Sulfate) 4 mg 1X ONCE IV Last administered on 07/04/19at 10:45; Start 07/04/19 at 09:00; Stop 07/04/19 at 09:01; Status DC Ondansetron HCl (Zofran) 4 mg 1X ONCE IV Last administered on 07/04/19at 10:42; Start 07/04/19 at 09:00; Stop 07/04/19 at 09:01; Status DC Iohexol (Omnipaque 350 Mg/ml) 75 ml 1X ONCE IV ; Start 07/04/19 at 09:45; Stop 07/04/19 at 09:46; Status DC Info (CONTRAST GIVEN -- Rx MONITORING) 1 each PRN DAILY PRN MC SEE COMMENTS; Start 07/04/19 at 09:45; Stop 07/06/19 at 09:44 Iohexol (Omnipaque 300 Mg/ml) 75 ml 1X ONCE IV Last administered on 07/04/19at 10:10; Start 07/04/19 at 09:45; Stop 07/04/19 at 09:47; Status DC Morphine Sulfate (Morphine Sulfate) 4 mg 1X ONCE IV ; Start 07/04/19 at 10:45; Stop 07/04/19 at 10:46; Status DC Ondansetron HCl (Zofran) 4 mg PRN Q8HRS PRN IV NAUSEA/VOMITING; Start 07/04/19 at 11:15; Stop 07/05/19 at 11:14; Status DC Morphine Sulfate (Morphine Sulfate) 2 mg PRN Q2HR PRN IV PAIN Last administered on 07/05/19at 08:57; Start 07/04/19 at 11:15; Stop 07/05/19 at 11:14; Status DC Pantoprazole Sodium (Protonix) 40 mg DAILYAC PO Last administered on 07/05/19at 08:54; Start 07/05/19 at 07:30 Spironolactone (Aldactone) 100 mg DAILY PO Last administered on 07/05/19at 08:54; Start 07/04/19 at 17:30 Active Scripts Active Azithromycin Tablet (Azithromycin) 250 Mg Tablet 1 Pkg PO UD 5 Days 2 the first day followed by 1 for days 2-5 Prednisone (Prednisone) 10 Mg Tablet 10 Mg PO DIRECTED Levaquin (Levofloxacin) 500 Mg Tablet 500 Mg PO DAILY Reported Klor-Con M20 (Potassium Chloride) 20 Meq Tab.er.prt 1 Tab PO DAILY Lisinopril 20 Mg Tablet 1 Tab PO DAILY Carvedilol (Carvedilol) 12.5 Mg Tablet 1 Tab PO BID Lasix (Furosemide) 40 Mg Tablet 1 Tab PO DAILY Aspirin 81 Mg Tab.chew 1 Tab PO DAILY Allergies Allergies: Coded Allergies: No Known Drug Allergies (Unverified , 07/05/15) ROS PSYCHOLOGICAL ROS: No: Hallucinations Eyes: No Loss of vision HEENT: No: Epistaxis Respiratory: YES: Orthopnea, Shortness of breath Cardiovascular: No Chest Pain Gastrointestinal: Yes Nausea, Yes Other (abdominal distention) Genitourinary: No Hematuria Neurological: No Seizures Skin: No Rash Physical Exam General: Alert, mild distress HEENT: Atraumatic Lungs: Clear to auscultation Heart: Regular rate Abdomen: Other (distended) Neuro: Normal speech Psych/Mental Status: Mood NL Vitals VITALS Vital Signs Date Time Temp Pulse Resp B/P (MAP) Pulse Ox O2 Delivery O2 Flow Rate FiO2 07/05/19 08:57 Room Air 07/05/19 07:59 98.0 106 20 140/92 (108) 92 98.0 Labs Labs Laboratory Tests Test 07/04/19 08:03 07/05/19 07:30 White Blood Count 6.1 x10^3/uL (4.0-11.0) 6.5 x10^3/uL (4.0-11.0) Red Blood Count 4.61 x10^6/uL (4.30-5.70) 4.61 x10^6/uL (4.30-5.70) Hemoglobin 14.4 g/dL (13.0-17.5) 14.4 g/dL (13.0-17.5) Hematocrit 43.1 % (39.0-53.0) 42.7 % (39.0-53.0) Mean Corpuscular Volume 94 fL (79-100) 93 fL (79-100) Mean Corpuscular Hemoglobin 31 pg (25-35) 31 pg (25-35) Mean Corpuscular Hemoglobin Concent 34 g/dL (31-37) 34 g/dL (31-37) Red Cell Distribution Width 14.1 % (11.5-14.5) 14.1 % (11.5-14.5) Platelet Count 250 x10^3/uL (140-400) 230 x10^3/uL (140-400) Neutrophils (%) (Auto) 58 % (31-73) 56 % (31-73) Lymphocytes (%) (Auto) 24 % (24-48) 29 % (24-48) Monocytes (%) (Auto) 11 % (0-9) 11 % (0-9) Eosinophils (%) (Auto) 6 % (0-3) 4 % (0-3) Basophils (%) (Auto) 1 % (0-3) 0 % (0-3) Neutrophils # (Auto) 3.5 x10^3/uL (1.8-7.7) 3.7 x10^3/uL (1.8-7.7) Lymphocytes # (Auto) 1.5 x10^3/uL (1.0-4.8) 1.9 x10^3/uL (1.0-4.8) Monocytes # (Auto) 0.7 x10^3/uL (0.0-1.1) 0.7 x10^3/uL (0.0-1.1) Eosinophils # (Auto) 0.4 x10^3/uL (0.0-0.7) 0.3 x10^3/uL (0.0-0.7) Basophils # (Auto) 0.1 x10^3/uL (0.0-0.2) 0.0 x10^3/uL (0.0-0.2) Prothrombin Time 15.6 SEC (11.7-14.0) Prothromb Time International Ratio 1.3 (0.8-1.1) Sodium Level 141 mmol/L (136-145) 138 mmol/L (136-145) Potassium Level 4.0 mmol/L (3.5-5.1) 4.0 mmol/L (3.5-5.1) Chloride Level 102 mmol/L (98-107) 103 mmol/L (98-107) Carbon Dioxide Level 29 mmol/L (21-32) 26 mmol/L (21-32) Anion Gap 10 (6-14) 9 (6-14) Blood Urea Nitrogen 19 mg/dL (8-26) 18 mg/dL (8-26) Creatinine 1.2 mg/dL (0.7-1.3) 1.0 mg/dL (0.7-1.3) Estimated GFR (Cockcroft-Gault) 77.5 95.7 BUN/Creatinine Ratio 16 (6-20) 18 (6-20) Glucose Level 95 mg/dL (70-99) 86 mg/dL (70-99) Calcium Level 8.1 mg/dL (8.5-10.1) 8.0 mg/dL (8.5-10.1) Total Bilirubin 0.5 mg/dL (0.2-1.0) 0.6 mg/dL (0.2-1.0) Aspartate Amino Transf (AST/SGOT) 39 U/L (15-37) 37 U/L (15-37) Alanine Aminotransferase (ALT/SGPT) 51 U/L (16-63) 46 U/L (16-63) Alkaline Phosphatase 78 U/L (46-116) 67 U/L (46-116) QD-Xby-C-Type Natriuretic Peptide 1829 pg/mL (0-124) Total Protein 6.4 g/dL (6.4-8.2) 6.3 g/dL (6.4-8.2) Albumin 3.1 g/dL (3.4-5.0) 2.8 g/dL (3.4-5.0) Albumin/Globulin Ratio 0.9 (1.0-1.7) 0.8 (1.0-1.7) Laboratory Tests Test 07/05/19 07:30 White Blood Count 6.5 x10^3/uL (4.0-11.0) Red Blood Count 4.61 x10^6/uL (4.30-5.70) Hemoglobin 14.4 g/dL (13.0-17.5) Hematocrit 42.7 % (39.0-53.0) Mean Corpuscular Volume 93 fL (79-100) Mean Corpuscular Hemoglobin 31 pg (25-35) Mean Corpuscular Hemoglobin Concent 34 g/dL (31-37) Red Cell Distribution Width 14.1 % (11.5-14.5) Platelet Count 230 x10^3/uL (140-400) Neutrophils (%) (Auto) 56 % (31-73) Lymphocytes (%) (Auto) 29 % (24-48) Monocytes (%) (Auto) 11 % (0-9) Eosinophils (%) (Auto) 4 % (0-3) Basophils (%) (Auto) 0 % (0-3) Neutrophils # (Auto) 3.7 x10^3/uL (1.8-7.7) Lymphocytes # (Auto) 1.9 x10^3/uL (1.0-4.8) Monocytes # (Auto) 0.7 x10^3/uL (0.0-1.1) Eosinophils # (Auto) 0.3 x10^3/uL (0.0-0.7) Basophils # (Auto) 0.0 x10^3/uL (0.0-0.2) Sodium Level 138 mmol/L (136-145) Potassium Level 4.0 mmol/L (3.5-5.1) Chloride Level 103 mmol/L (98-107) Carbon Dioxide Level 26 mmol/L (21-32) Anion Gap 9 (6-14) Blood Urea Nitrogen 18 mg/dL (8-26) Creatinine 1.0 mg/dL (0.7-1.3) Estimated GFR (Cockcroft-Gault) 95.7 BUN/Creatinine Ratio 18 (6-20) Glucose Level 86 mg/dL (70-99) Calcium Level 8.0 mg/dL (8.5-10.1) Total Bilirubin 0.6 mg/dL (0.2-1.0) Aspartate Amino Transf (AST/SGOT) 37 U/L (15-37) Alanine Aminotransferase (ALT/SGPT) 46 U/L (16-63) Alkaline Phosphatase 67 U/L (46-116) Total Protein 6.3 g/dL (6.4-8.2) Albumin 2.8 g/dL (3.4-5.0) Albumin/Globulin Ratio 0.8 (1.0-1.7) Assessment/Plan Assessment/Plan 1. Elevated BNP level. Chest x-ray however did not show any evidence of CHF. He does not have any edema. Doubt congestive heart failure. Check 2-D echo to assess LV systolic function -could be done as an outpatient. 2. Dyspnea most probably secondary to abdominal distention/ascites. Gastroenterology team considering paracentesis. 3. Hypertension: Controlled. Thank you for your consultation RONNA TOUSSAINT MD Jul 05, 2019 11:48
[2019-07-05 11:59] VITALS: BP 144/103
--- NOTE | 2019-07-05 13:46 | PDOC ---
GI PROGRESS NOTES Date Date/Time DATE: 07/05/19 TIME: 13:42 Subjective Subjective asked to see by nursing staff- IR needs more iinfo before considering paracentesis US reviewed- some ascites present New ascites - but patient would like to go home and f/u with his PCP Objective Vitals Vital Signs Date Time Temp Pulse Resp B/P (MAP) Pulse Ox O2 Delivery O2 Flow Rate FiO2 07/05/19 11:59 98.0 98 20 144/103 (117) 92 Room Air 98.0 07/05/19 08:57 Room Air 07/05/19 08:00 Room Air 07/05/19 07:59 98.0 106 20 140/92 (108) 92 Room Air 98.0 07/05/19 03:00 97.9 78 18 116/88 (97) 94 Room Air 97.9 07/04/19 23:00 97.7 93 18 97/71 (80) 95 Room Air 97.7 07/04/19 20:00 Room Air 07/04/19 19:00 97.6 96 18 110/72 (85) 97 Room Air 97.6 07/04/19 18:20 Room Air 07/04/19 15:00 97.7 102 20 106/81 (89) 96 Room Air 97.7 Labs Labs Laboratory Tests Test 07/05/19 07:30 White Blood Count 6.5 x10^3/uL (4.0-11.0) Red Blood Count 4.61 x10^6/uL (4.30-5.70) Hemoglobin 14.4 g/dL (13.0-17.5) Hematocrit 42.7 % (39.0-53.0) Mean Corpuscular Volume 93 fL (79-100) Mean Corpuscular Hemoglobin 31 pg (25-35) Mean Corpuscular Hemoglobin Concent 34 g/dL (31-37) Red Cell Distribution Width 14.1 % (11.5-14.5) Platelet Count 230 x10^3/uL (140-400) Neutrophils (%) (Auto) 56 % (31-73) Lymphocytes (%) (Auto) 29 % (24-48) Monocytes (%) (Auto) 11 % (0-9) Eosinophils (%) (Auto) 4 % (0-3) Basophils (%) (Auto) 0 % (0-3) Neutrophils # (Auto) 3.7 x10^3/uL (1.8-7.7) Lymphocytes # (Auto) 1.9 x10^3/uL (1.0-4.8) Monocytes # (Auto) 0.7 x10^3/uL (0.0-1.1) Eosinophils # (Auto) 0.3 x10^3/uL (0.0-0.7) Basophils # (Auto) 0.0 x10^3/uL (0.0-0.2) Sodium Level 138 mmol/L (136-145) Potassium Level 4.0 mmol/L (3.5-5.1) Chloride Level 103 mmol/L (98-107) Carbon Dioxide Level 26 mmol/L (21-32) Anion Gap 9 (6-14) Blood Urea Nitrogen 18 mg/dL (8-26) Creatinine 1.0 mg/dL (0.7-1.3) Estimated GFR (Cockcroft-Gault) 95.7 BUN/Creatinine Ratio 18 (6-20) Glucose Level 86 mg/dL (70-99) Calcium Level 8.0 mg/dL (8.5-10.1) Total Bilirubin 0.6 mg/dL (0.2-1.0) Aspartate Amino Transf (AST/SGOT) 37 U/L (15-37) Alanine Aminotransferase (ALT/SGPT) 46 U/L (16-63) Alkaline Phosphatase 67 U/L (46-116) Total Protein 6.3 g/dL (6.4-8.2) Albumin 2.8 g/dL (3.4-5.0) Albumin/Globulin Ratio 0.8 (1.0-1.7) Physical Exam Physical Exam alert chest- clear abd- soft mildly distended- some is adipose but small fluid wave was appreciated- NONTENDER- no masses Assessment Assessment AScites- moderate to small amount on imaging- IR on hold for paracentesis- patient would like to go home and f/u with PCP, Dr. Vo Since no peripheral edema and non tender without fever or WBC, I think it is OK to continue aldactone and let him go home to f/u with Dr. Vo Lets cancel paracentesis , start diet and consider early d/c SONIDO BERNARD MD Jul 05, 2019 13:46
[2019-07-05 15:59] VITALS: BP 127/80
[2019-07-05 23:00] VITALS: BP 122/95
[2019-07-05] MEDS ORDERED: IPRATRPIUM/ALBUTEROL 0.5/2.5MG 3 ML NEBU. NEB ONE (23:00)
[2019-07-06] VITALS (7 sets, daily range): BP systolic 104–141; BP diastolic 72–104
--- NOTE | 2019-07-06 04:45 | NUR ---
Pt was supposed to discharge this evening, however, when I went down to check on pt for a third time around 2200, he stated that he was feeling SOB. Contacted Dr. Edge who stated that since it was so late for him to let us know he was having problems, he could stay till morning. Dr also ordered a 1X breathing tx to see if that gave any improvement. Pt still states that he is having so SOB when laying down. Advised patient to sit up if that was easier to breath. During 0300 vitals, pt had decreased O2 stats so TOOL FILER also placed pt on 2L of O2 NC to see if stats improved. Stats went up to 98%. Will continue to monitor. MPRN
[2019-07-06 04:46] LABS: BASO # 0.1 x10^3/uL (0.0-0.2); BASO % 1 % (0-3); EOS # 0.4 x10^3/uL (0.0-0.7); EOS % 6 % (0-3); HEMATOCRIT 43.8 % (39.0-53.0); HEMOGLOBIN 14.8 g/dL (13.0-17.5); LYMPH # 1.8 x10^3/uL (1.0-4.8); LYMPH % 29 % (24-48); MEAN CORPUSCULAR HEMOGLOBIN 32 pg (25-35); MEAN CORPUSCULAR HGB CONC 34 g/dL (31-37); MEAN CORPUSCULAR VOLUME 94 fL (79-100); MONO # 0.8 x10^3/uL (0.0-1.1); MONO % 12 % (0-9); NEUT # 3.2 x10^3/uL (1.8-7.7); NEUT % 52 % (31-73); PLATELET COUNT 239 x10^3/uL (140-400); RED BLOOD COUNT 4.67 x10^6/uL (4.30-5.70); RED CELL DISTRIBUTION WIDTH 14.5 % (11.5-14.5); WHITE BLOOD COUNT 6.2 x10^3/uL (4.0-11.0)
[2019-07-06 05:11] LABS: ALBUMIN 2.8 g/dL (3.4-5.0); ALBUMIN/GLOBULIN RATIO 0.8 (1.0-1.7); CALCIUM 7.9 mg/dL (8.5-10.1); CREATININE 1.2 mg/dL (0.7-1.3); GFR 77.5; POTASSIUM 4.1 mmol/L (3.5-5.1); TOTAL BILIRUBIN 0.4 mg/dL (0.2-1.0); TOTAL PROTEIN 6.4 g/dL (6.4-8.2)
--- NOTE | 2019-07-06 08:44 | PDOC ---
PROGRESS NOTES Chief Complaint Chief Complaint Ascites hx CHF on lasix HTN on meds Alcohol dependance Poss BARBY History of Present Illness History of Present Illness changed his mind about dc bec was soa yesterday and desaated to 70s OCc cigarettes Daily drinker before Never had paracentesis MOderate ascites on imagijng GI note reviewed, ok to dc to PCP as pt preference yesterday - but now pt changing his mind Dr Naga patrick listed as PCP - last seen 2 yrs ago Plan: NPO post MN for IR paracentesis if he changes his mind REsume home meds as BP high including home dose lasix Sleep study as OP 6 MW - though will not qualify as lacks chronic lung dx NEbs, cough med if that helps\ NEeds to lose weight Check with Dr Jerad Patrick if he will take this pt dw RN Nara Vitals Vitals Vital Signs Date Time Temp Pulse Resp B/P (MAP) Pulse Ox O2 Delivery O2 Flow Rate FiO2 07/06/19 07:59 98.2 101 20 135/102 (113) 99 Nasal Cannula 2.0 98.2 Physical Exam General: Alert, mild distress Heart: Regular rate Lungs: Clear Abdomen: Other (distended) Extremities: No clubbing, No cyanosis Skin: No rashes, No breakdown Labs LABS Laboratory Tests Test 07/06/19 04:03 White Blood Count 6.2 x10^3/uL (4.0-11.0) Red Blood Count 4.67 x10^6/uL (4.30-5.70) Hemoglobin 14.8 g/dL (13.0-17.5) Hematocrit 43.8 % (39.0-53.0) Mean Corpuscular Volume 94 fL (79-100) Mean Corpuscular Hemoglobin 32 pg (25-35) Mean Corpuscular Hemoglobin Concent 34 g/dL (31-37) Red Cell Distribution Width 14.5 % (11.5-14.5) Platelet Count 239 x10^3/uL (140-400) Neutrophils (%) (Auto) 52 % (31-73) Lymphocytes (%) (Auto) 29 % (24-48) Monocytes (%) (Auto) 12 % (0-9) Eosinophils (%) (Auto) 6 % (0-3) Basophils (%) (Auto) 1 % (0-3) Neutrophils # (Auto) 3.2 x10^3/uL (1.8-7.7) Lymphocytes # (Auto) 1.8 x10^3/uL (1.0-4.8) Monocytes # (Auto) 0.8 x10^3/uL (0.0-1.1) Eosinophils # (Auto) 0.4 x10^3/uL (0.0-0.7) Basophils # (Auto) 0.1 x10^3/uL (0.0-0.2) Sodium Level 139 mmol/L (136-145) Potassium Level 4.1 mmol/L (3.5-5.1) Chloride Level 103 mmol/L (98-107) Carbon Dioxide Level 29 mmol/L (21-32) Anion Gap 7 (6-14) Blood Urea Nitrogen 21 mg/dL (8-26) Creatinine 1.2 mg/dL (0.7-1.3) Estimated GFR (Cockcroft-Gault) 77.5 BUN/Creatinine Ratio 18 (6-20) Glucose Level 107 mg/dL (70-99) Calcium Level 7.9 mg/dL (8.5-10.1) Total Bilirubin 0.4 mg/dL (0.2-1.0) Aspartate Amino Transf (AST/SGOT) 34 U/L (15-37) Alanine Aminotransferase (ALT/SGPT) 48 U/L (16-63) Alkaline Phosphatase 81 U/L (46-116) Total Protein 6.4 g/dL (6.4-8.2) Albumin 2.8 g/dL (3.4-5.0) Albumin/Globulin Ratio 0.8 (1.0-1.7) Review of Systems Review of Systems soa, anxious, hard to breathe with big belly, all else 14 pt neg Assessment and Plan Assessmemt and Plan Problems Medical Problems: (1) Abdominal pain Status: Acute (2) Ascites Status: Acute (3) Shortness of breath Status: Acute Comment Review of Relevant I have reviewed the following items sujit (where applicable) has been applied. Labs Laboratory Tests Test 07/05/19 07:30 07/06/19 04:03 White Blood Count 6.5 x10^3/uL (4.0-11.0) 6.2 x10^3/uL (4.0-11.0) Red Blood Count 4.61 x10^6/uL (4.30-5.70) 4.67 x10^6/uL (4.30-5.70) Hemoglobin 14.4 g/dL (13.0-17.5) 14.8 g/dL (13.0-17.5) Hematocrit 42.7 % (39.0-53.0) 43.8 % (39.0-53.0) Mean Corpuscular Volume 93 fL (79-100) 94 fL (79-100) Mean Corpuscular Hemoglobin 31 pg (25-35) 32 pg (25-35) Mean Corpuscular Hemoglobin Concent 34 g/dL (31-37) 34 g/dL (31-37) Red Cell Distribution Width 14.1 % (11.5-14.5) 14.5 % (11.5-14.5) Platelet Count 230 x10^3/uL (140-400) 239 x10^3/uL (140-400) Neutrophils (%) (Auto) 56 % (31-73) 52 % (31-73) Lymphocytes (%) (Auto) 29 % (24-48) 29 % (24-48) Monocytes (%) (Auto) 11 % (0-9) 12 % (0-9) Eosinophils (%) (Auto) 4 % (0-3) 6 % (0-3) Basophils (%) (Auto) 0 % (0-3) 1 % (0-3) Neutrophils # (Auto) 3.7 x10^3/uL (1.8-7.7) 3.2 x10^3/uL (1.8-7.7) Lymphocytes # (Auto) 1.9 x10^3/uL (1.0-4.8) 1.8 x10^3/uL (1.0-4.8) Monocytes # (Auto) 0.7 x10^3/uL (0.0-1.1) 0.8 x10^3/uL (0.0-1.1) Eosinophils # (Auto) 0.3 x10^3/uL (0.0-0.7) 0.4 x10^3/uL (0.0-0.7) Basophils # (Auto) 0.0 x10^3/uL (0.0-0.2) 0.1 x10^3/uL (0.0-0.2) Sodium Level 138 mmol/L (136-145) 139 mmol/L (136-145) Potassium Level 4.0 mmol/L (3.5-5.1) 4.1 mmol/L (3.5-5.1) Chloride Level 103 mmol/L (98-107) 103 mmol/L (98-107) Carbon Dioxide Level 26 mmol/L (21-32) 29 mmol/L (21-32) Anion Gap 9 (6-14) 7 (6-14) Blood Urea Nitrogen 18 mg/dL (8-26) 21 mg/dL (8-26) Creatinine 1.0 mg/dL (0.7-1.3) 1.2 mg/dL (0.7-1.3) Estimated GFR (Cockcroft-Gault) 95.7 77.5 BUN/Creatinine Ratio 18 (6-20) 18 (6-20) Glucose Level 86 mg/dL (70-99) 107 mg/dL (70-99) Calcium Level 8.0 mg/dL (8.5-10.1) 7.9 mg/dL (8.5-10.1) Total Bilirubin 0.6 mg/dL (0.2-1.0) 0.4 mg/dL (0.2-1.0) Aspartate Amino Transf (AST/SGOT) 37 U/L (15-37) 34 U/L (15-37) Alanine Aminotransferase (ALT/SGPT) 46 U/L (16-63) 48 U/L (16-63) Alkaline Phosphatase 67 U/L (46-116) 81 U/L (46-116) Total Protein 6.3 g/dL (6.4-8.2) 6.4 g/dL (6.4-8.2) Albumin 2.8 g/dL (3.4-5.0) 2.8 g/dL (3.4-5.0) Albumin/Globulin Ratio 0.8 (1.0-1.7) 0.8 (1.0-1.7) Laboratory Tests Test 07/06/19 04:03 White Blood Count 6.2 x10^3/uL (4.0-11.0) Red Blood Count 4.67 x10^6/uL (4.30-5.70) Hemoglobin 14.8 g/dL (13.0-17.5) Hematocrit 43.8 % (39.0-53.0) Mean Corpuscular Volume 94 fL (79-100) Mean Corpuscular Hemoglobin 32 pg (25-35) Mean Corpuscular Hemoglobin Concent 34 g/dL (31-37) Red Cell Distribution Width 14.5 % (11.5-14.5) Platelet Count 239 x10^3/uL (140-400) Neutrophils (%) (Auto) 52 % (31-73) Lymphocytes (%) (Auto) 29 % (24-48) Monocytes (%) (Auto) 12 % (0-9) Eosinophils (%) (Auto) 6 % (0-3) Basophils (%) (Auto) 1 % (0-3) Neutrophils # (Auto) 3.2 x10^3/uL (1.8-7.7) Lymphocytes # (Auto) 1.8 x10^3/uL (1.0-4.8) Monocytes # (Auto) 0.8 x10^3/uL (0.0-1.1) Eosinophils # (Auto) 0.4 x10^3/uL (0.0-0.7) Basophils # (Auto) 0.1 x10^3/uL (0.0-0.2) Sodium Level 139 mmol/L (136-145) Potassium Level 4.1 mmol/L (3.5-5.1) Chloride Level 103 mmol/L (98-107) Carbon Dioxide Level 29 mmol/L (21-32) Anion Gap 7 (6-14) Blood Urea Nitrogen 21 mg/dL (8-26) Creatinine 1.2 mg/dL (0.7-1.3) Estimated GFR (Cockcroft-Gault) 77.5 BUN/Creatinine Ratio 18 (6-20) Glucose Level 107 mg/dL (70-99) Calcium Level 7.9 mg/dL (8.5-10.1) Total Bilirubin 0.4 mg/dL (0.2-1.0) Aspartate Amino Transf (AST/SGOT) 34 U/L (15-37) Alanine Aminotransferase (ALT/SGPT) 48 U/L (16-63) Alkaline Phosphatase 81 U/L (46-116) Total Protein 6.4 g/dL (6.4-8.2) Albumin 2.8 g/dL (3.4-5.0) Albumin/Globulin Ratio 0.8 (1.0-1.7) Medications Current Medications Morphine Sulfate (Morphine Sulfate) 4 mg 1X ONCE IV Last administered on 07/04/19at 10:45; Start 07/04/19 at 09:00; Stop 07/04/19 at 09:01; Status DC Ondansetron HCl (Zofran) 4 mg 1X ONCE IV Last administered on 07/04/19at 10:42; Start 07/04/19 at 09:00; Stop 07/04/19 at 09:01; Status DC Iohexol (Omnipaque 350 Mg/ml) 75 ml 1X ONCE IV ; Start 07/04/19 at 09:45; Stop 07/04/19 at 09:46; Status DC Info (CONTRAST GIVEN -- Rx MONITORING) 1 each PRN DAILY PRN MC SEE COMMENTS; Start 07/04/19 at 09:45; Stop 07/06/19 at 09:44 Iohexol (Omnipaque 300 Mg/ml) 75 ml 1X ONCE IV Last administered on 07/04/19at 10:10; Start 07/04/19 at 09:45; Stop 07/04/19 at 09:47; Status DC Morphine Sulfate (Morphine Sulfate) 4 mg 1X ONCE IV ; Start 07/04/19 at 10:45; Stop 07/04/19 at 10:46; Status DC Ondansetron HCl (Zofran) 4 mg PRN Q8HRS PRN IV NAUSEA/VOMITING; Start 07/04/19 at 11:15; Stop 07/05/19 at 11:14; Status DC Morphine Sulfate (Morphine Sulfate) 2 mg PRN Q2HR PRN IV PAIN Last administered on 07/05/19at 08:57; Start 07/04/19 at 11:15; Stop 07/05/19 at 11:14; Status DC Pantoprazole Sodium (Protonix) 40 mg DAILYAC PO Last administered on 07/05/19at 08:54; Start 07/05/19 at 07:30 Spironolactone (Aldactone) 100 mg DAILY PO Last administered on 07/05/19at 08:54; Start 07/04/19 at 17:30 Albuterol/ Ipratropium (Duoneb) 3 ml 1X ONCE NEB Last administered on 07/06/19at 00:12; Start 07/05/19 at 23:00; Stop 07/05/19 at 23:01; Status DC Active Scripts Active Reported Klor-Con M20 (Potassium Chloride) 20 Meq Tab.er.prt 1 Tab PO DAILY Lisinopril 20 Mg Tablet 1 Tab PO DAILY Carvedilol (Carvedilol) 12.5 Mg Tablet 1 Tab PO BID Lasix (Furosemide) 40 Mg Tablet 1 Tab PO DAILY Aspirin 81 Mg Tab.chew 1 Tab PO DAILY Vitals/I & O Vital Sign - Last 24 Hours 07/05/19 07/05/19 07/05/19 07/05/19 08:57 11:59 15:59 20:15 Temp 98.0 98.0 98.0 98.0 Pulse 98 80 Resp 20 20 B/P (MAP) 144/103 (117) 127/80 (96) Pulse Ox 92 95 O2 Delivery Room Air Room Air Room Air Room Air 07/05/19 07/06/19 07/06/19 07/06/19 23:00 00:10 03:00 07:59 Temp 97.9 98.2 98.2 97.9 98.2 98.2 Pulse 99 102 101 Resp 18 18 20 B/P (MAP) 122/95 (104) 141/98 (112) 135/102 (113) Pulse Ox 99 98 98 99 O2 Delivery Room Air Room Air Nasal Cannula Nasal Cannula O2 Flow Rate 2.0 2.0 Intake and Output 07/05/19 07/05/19 07/06/19 15:00 23:00 07:00 Intake Total 120 ml Balance 120 ml DILLON COFFMAN MD Jul 06, 2019 08:44
[2019-07-06] MEDS ORDERED: guaiFENesin DM 200MG/20MG 10 ML SYRUP PO PRN (08:45)
[2019-07-06] MEDS: PANTOPRAZOLE 40 MG TABLET.DR. PO SCH (09:50)
[2019-07-06] MEDS: FUROSEMIDE 40 MG TABLET. PO SCH (09:50)
[2019-07-06] MEDS: SPIRONOLACTONE 25 MG TABLET PO SCH (09:50)
[2019-07-06] MEDS: POTASSIUM CHLORIDE 20 MEQ TABLET.ER. PO SCH (09:50)
[2019-07-06] MEDS: LISINOPRIL 20 MG TABLET PO SCH (09:51)
[2019-07-06] MEDS: CARVEDILOL 12.5 MG TABLET. PO SCH ×2 (09:51→17:23)
[2019-07-06] MEDS: ASPIRIN CHEWABLE 81 MG TABLET. PO SCH (09:51)
[2019-07-06] MEDS: IPRATRPIUM/ALBUTEROL 0.5/2.5MG 3 ML NEBU. NEB SCH ×3 (11:35→19:50)
--- NOTE | 2019-07-06 12:22 | PDOC ---
PROGRESS NOTES Subjective Subjective Feeling better with improvement in dyspnea Objective Objective Vital Signs Date Time Temp Pulse Resp B/P (MAP) Pulse Ox O2 Delivery O2 Flow Rate FiO2 07/06/19 12:05 98.1 88 19 130/83 (99) 92 Room Air 98.1 07/06/19 07:59 2.0 Intake and Output 07/06/19 07:00 Intake Total 120 ml Balance 120 ml Intake Oral 120 ml # Voids 2 Physical Exam Abdomen: Other (distended) Heart: Regular rate Extremities: No clubbing, No cyanosis General: Alert, mild distress HEENT: Atraumatic Lungs: Clear to auscultation Neuro: Normal speech Psych/Mental Status: Mood NL Skin: No rashes, No breakdown Assessment Assessment 1. Elevated BNP level. Chest x-ray however did not show any evidence of CHF. He does not have any edema. Check 2-D echo to assess LV systolic function - could be done as an outpatient. 2. Dyspnea most probably secondary to abdominal distention/ascites. Treat per gastroenterology team 3. Hypertension: Controlled. Plan Plan of Care Problems Medical Problems: (1) Abdominal pain Status: Acute (2) Ascites Status: Acute (3) Shortness of breath Status: Acute Comment Review of Relevant I have reviewed the following items sujit (where applicable) has been applied. Labs Laboratory Tests Test 07/06/19 04:03 White Blood Count 6.2 x10^3/uL (4.0-11.0) Red Blood Count 4.67 x10^6/uL (4.30-5.70) Hemoglobin 14.8 g/dL (13.0-17.5) Hematocrit 43.8 % (39.0-53.0) Mean Corpuscular Volume 94 fL (79-100) Mean Corpuscular Hemoglobin 32 pg (25-35) Mean Corpuscular Hemoglobin Concent 34 g/dL (31-37) Red Cell Distribution Width 14.5 % (11.5-14.5) Platelet Count 239 x10^3/uL (140-400) Neutrophils (%) (Auto) 52 % (31-73) Lymphocytes (%) (Auto) 29 % (24-48) Monocytes (%) (Auto) 12 % (0-9) Eosinophils (%) (Auto) 6 % (0-3) Basophils (%) (Auto) 1 % (0-3) Neutrophils # (Auto) 3.2 x10^3/uL (1.8-7.7) Lymphocytes # (Auto) 1.8 x10^3/uL (1.0-4.8) Monocytes # (Auto) 0.8 x10^3/uL (0.0-1.1) Eosinophils # (Auto) 0.4 x10^3/uL (0.0-0.7) Basophils # (Auto) 0.1 x10^3/uL (0.0-0.2) Sodium Level 139 mmol/L (136-145) Potassium Level 4.1 mmol/L (3.5-5.1) Chloride Level 103 mmol/L (98-107) Carbon Dioxide Level 29 mmol/L (21-32) Anion Gap 7 (6-14) Blood Urea Nitrogen 21 mg/dL (8-26) Creatinine 1.2 mg/dL (0.7-1.3) Estimated GFR (Cockcroft-Gault) 77.5 BUN/Creatinine Ratio 18 (6-20) Glucose Level 107 mg/dL (70-99) Calcium Level 7.9 mg/dL (8.5-10.1) Total Bilirubin 0.4 mg/dL (0.2-1.0) Aspartate Amino Transf (AST/SGOT) 34 U/L (15-37) Alanine Aminotransferase (ALT/SGPT) 48 U/L (16-63) Alkaline Phosphatase 81 U/L (46-116) Total Protein 6.4 g/dL (6.4-8.2) Albumin 2.8 g/dL (3.4-5.0) Albumin/Globulin Ratio 0.8 (1.0-1.7) Medications Current Medications Albuterol/ Ipratropium (Duoneb) 3 ml 1X ONCE NEB Last administered on 07/06/19at 00:12; Start 07/05/19 at 23:00; Stop 07/05/19 at 23:01; Status DC Albuterol/ Ipratropium (Duoneb) 3 ml RTQID NEB Last administered on 07/06/19at 11:35; Start 07/06/19 at 12:00 Aspirin (Children'S Aspirin) 81 mg DAILY PO Last administered on 07/06/19at 09:51; Start 07/06/19 at 09:00 Carvedilol (Coreg) 12.5 mg BIDWMEALS PO Last administered on 07/06/19 09:51; Start 07/06/19 at 09:00 Furosemide (Lasix) 40 mg DAILY PO Last administered on 07/06/19at 09:50; Start 07/06/19 at 09:00 Guaifenesin (Robitussin Dm) 10 ml PRN Q6HRS PRN PO COUGH; Start 07/06/19 at 08:45 Lisinopril (Prinivil) 20 mg DAILY PO Last administered on 07/06/19 09:51; Start 07/06/19 at 09:00 Potassium Chloride (Klor-Con) 20 meq DAILY PO Last administered on 07/06/19 09:50; Start 07/06/19 at 09:00 Vitals/I & O Vital Sign - Last 24 Hours 07/05/19 07/05/19 07/05/19 07/06/19 15:59 20:15 23:00 00:10 Temp 98.0 97.9 98.0 97.9 Pulse 80 99 Resp 20 18 B/P (MAP) 127/80 (96) 122/95 (104) Pulse Ox 95 99 98 O2 Delivery Room Air Room Air Room Air Room Air 07/06/19 07/06/19 07/06/19 07/06/19 03:00 07:59 09:51 09:51 Temp 98.2 98.2 98.2 98.2 Pulse 102 101 101 101 Resp 18 20 B/P (MAP) 141/98 (112) 135/102 (113) 135/102 135/102 Pulse Ox 98 99 O2 Delivery Nasal Cannula Nasal Cannula O2 Flow Rate 2.0 2.0 07/06/19 07/06/19 07/06/19 11:03 11:36 12:05 Temp 97.8 98.1 97.8 98.1 Pulse 104 88 Resp 19 B/P (MAP) 136/104 (115) 130/83 (99) Pulse Ox 99 94 92 O2 Delivery Room Air Room Air Room Air Intake and Output 07/05/19 07/05/19 07/06/19 15:00 23:00 07:00 Intake Total 120 ml Balance 120 ml RONNA TOUSSAINT MD Jul 06, 2019 12:22
[2019-07-07 02:55] VITALS: BP 108/80
[2019-07-07 04:13] LABS: BASO # 0.1 x10^3/uL (0.0-0.2); BASO % 1 % (0-3); EOS # 0.4 x10^3/uL (0.0-0.7); EOS % 6 % (0-3); HEMATOCRIT 40.3 % (39.0-53.0); HEMOGLOBIN 13.4 g/dL (13.0-17.5); LYMPH # 1.2 x10^3/uL (1.0-4.8); LYMPH % 19 % (24-48); MEAN CORPUSCULAR HEMOGLOBIN 31 pg (25-35); MEAN CORPUSCULAR HGB CONC 33 g/dL (31-37); MEAN CORPUSCULAR VOLUME 94 fL (79-100); MONO # 0.6 x10^3/uL (0.0-1.1); MONO % 10 % (0-9); NEUT # 3.8 x10^3/uL (1.8-7.7); NEUT % 63 % (31-73); PLATELET COUNT 211 x10^3/uL (140-400); RED CELL DISTRIBUTION WIDTH 14.3 % (11.5-14.5); WHITE BLOOD COUNT 6.1 x10^3/uL (4.0-11.0)
[2019-07-07 05:07] LABS: ALBUMIN 2.8 g/dL (3.4-5.0); ALBUMIN/GLOBULIN RATIO 0.8 (1.0-1.7); CALCIUM 7.7 mg/dL (8.5-10.1); CREATININE 1.2 mg/dL (0.7-1.3); GFR 77.5; POTASSIUM 4.4 mmol/L (3.5-5.1); TOTAL BILIRUBIN 0.3 mg/dL (0.2-1.0); TOTAL PROTEIN 6.2 g/dL (6.4-8.2)
[2019-07-07 07:00] VITALS: BP 116/81
--- NOTE | 2019-07-07 07:10 | EKG ---
[facility] [address] [place] [address] Test Date: 2019-07-04 Test Time: 07:52:35 Pat Name: RICARDO HUTSON Department: Room: 569 1 Gender: M Pillowcase Folder: : 1970 Requested By: CHUY SLAUGHTER Order Number: [id number] Reading MD: Measurements Intervals [place] Rate: 96 P: -5 WI: 114 QRS: -9 QRSD: 94 T: 116 QT: 388 QTc: 497 Interpretive Statements SINUS RHYTHM LEFT ATRIAL ABNORMALITY LEFTWARD AXIS INCOMPLETE RIGHT BUNDLE BRANCH BLOCK T ABNORMALITY IN HIGH LATERAL LEADS PROLONGED QT ABNORMAL ECG No previous ECG available for comparison
[2019-07-07] MEDS: IPRATRPIUM/ALBUTEROL 0.5/2.5MG 3 ML NEBU. NEB SCH ×2 (07:20→11:07)
[2019-07-07] MEDS: SPIRONOLACTONE 25 MG TABLET PO SCH (08:25)
[2019-07-07] MEDS: CARVEDILOL 12.5 MG TABLET. PO SCH (08:26)
[2019-07-07] MEDS: LISINOPRIL 20 MG TABLET PO SCH (08:26)
[2019-07-07] MEDS: PANTOPRAZOLE 40 MG TABLET.DR. PO SCH (08:27)
[2019-07-07] MEDS: FUROSEMIDE 40 MG TABLET. PO SCH (08:27)
[2019-07-07] MEDS: ASPIRIN CHEWABLE 81 MG TABLET. PO SCH (08:27)
[2019-07-07] MEDS: POTASSIUM CHLORIDE 20 MEQ TABLET.ER. PO SCH (08:27)
[2019-07-07 09:01] VITALS: BP 124/82
[2019-07-07] MEDS ORDERED: ALBU2.5V8 INH (09:06)
--- NOTE | 2019-07-07 09:10 | PDOC3 ---
Discharge Summary Visit Information Date of Admission: Jul 04, 2019 Date of Discharge: Jul 07, 2019 Admitting Diagnosis Comment: Ascites hx CHF on lasix HTN on meds Alcohol dependance Poss BARBY Final Diagnosis Problems Medical Problems: (1) Abdominal pain Status: Acute (2) Ascites Status: Acute (3) Shortness of breath Status: Acute Brief Hospital Course Allergies Allergies Coded Allergies Type Severity Reaction Last Updated Verified No Known Drug Allergies 07/05/15 No Vital Signs Vital Signs Date Time Temp Pulse Resp B/P (MAP) Pulse Ox O2 Delivery O2 Flow Rate FiO2 07/07/19 09:01 102 124/82 (96) 97 Room Air 07/07/19 07:21 2.0 07/07/19 07:00 97.9 18 97.9 Lab Results Laboratory Tests Test 07/06/19 04:03 07/07/19 03:00 White Blood Count 6.2 x10^3/uL (4.0-11.0) 6.1 x10^3/uL (4.0-11.0) Red Blood Count 4.67 x10^6/uL (4.30-5.70) 4.30 x10^6/uL (4.30-5.70) Hemoglobin 14.8 g/dL (13.0-17.5) 13.4 g/dL (13.0-17.5) Hematocrit 43.8 % (39.0-53.0) 40.3 % (39.0-53.0) Mean Corpuscular Volume 94 fL (79-100) 94 fL (79-100) Mean Corpuscular Hemoglobin 32 pg (25-35) 31 pg (25-35) Mean Corpuscular Hemoglobin Concent 34 g/dL (31-37) 33 g/dL (31-37) Red Cell Distribution Width 14.5 % (11.5-14.5) 14.3 % (11.5-14.5) Platelet Count 239 x10^3/uL (140-400) 211 x10^3/uL (140-400) Neutrophils (%) (Auto) 52 % (31-73) 63 % (31-73) Lymphocytes (%) (Auto) 29 % (24-48) 19 % (24-48) Monocytes (%) (Auto) 12 % (0-9) 10 % (0-9) Eosinophils (%) (Auto) 6 % (0-3) 6 % (0-3) Basophils (%) (Auto) 1 % (0-3) 1 % (0-3) Neutrophils # (Auto) 3.2 x10^3/uL (1.8-7.7) 3.8 x10^3/uL (1.8-7.7) Lymphocytes # (Auto) 1.8 x10^3/uL (1.0-4.8) 1.2 x10^3/uL (1.0-4.8) Monocytes # (Auto) 0.8 x10^3/uL (0.0-1.1) 0.6 x10^3/uL (0.0-1.1) Eosinophils # (Auto) 0.4 x10^3/uL (0.0-0.7) 0.4 x10^3/uL (0.0-0.7) Basophils # (Auto) 0.1 x10^3/uL (0.0-0.2) 0.1 x10^3/uL (0.0-0.2) Sodium Level 139 mmol/L (136-145) 140 mmol/L (136-145) Potassium Level 4.1 mmol/L (3.5-5.1) 4.4 mmol/L (3.5-5.1) Chloride Level 103 mmol/L (98-107) 105 mmol/L (98-107) Carbon Dioxide Level 29 mmol/L (21-32) 24 mmol/L (21-32) Anion Gap 7 (6-14) 11 (6-14) Blood Urea Nitrogen 21 mg/dL (8-26) 21 mg/dL (8-26) Creatinine 1.2 mg/dL (0.7-1.3) 1.2 mg/dL (0.7-1.3) Estimated GFR (Cockcroft-Gault) 77.5 77.5 BUN/Creatinine Ratio 18 (6-20) 18 (6-20) Glucose Level 107 mg/dL (70-99) 133 mg/dL (70-99) Calcium Level 7.9 mg/dL (8.5-10.1) 7.7 mg/dL (8.5-10.1) Total Bilirubin 0.4 mg/dL (0.2-1.0) 0.3 mg/dL (0.2-1.0) Aspartate Amino Transf (AST/SGOT) 34 U/L (15-37) 33 U/L (15-37) Alanine Aminotransferase (ALT/SGPT) 48 U/L (16-63) 43 U/L (16-63) Alkaline Phosphatase 81 U/L (46-116) 89 U/L (46-116) Total Protein 6.4 g/dL (6.4-8.2) 6.2 g/dL (6.4-8.2) Albumin 2.8 g/dL (3.4-5.0) 2.8 g/dL (3.4-5.0) Albumin/Globulin Ratio 0.8 (1.0-1.7) 0.8 (1.0-1.7) Laboratory Tests Test 07/07/19 03:00 White Blood Count 6.1 x10^3/uL (4.0-11.0) Red Blood Count 4.30 x10^6/uL (4.30-5.70) Hemoglobin 13.4 g/dL (13.0-17.5) Hematocrit 40.3 % (39.0-53.0) Mean Corpuscular Volume 94 fL (79-100) Mean Corpuscular Hemoglobin 31 pg (25-35) Mean Corpuscular Hemoglobin Concent 33 g/dL (31-37) Red Cell Distribution Width 14.3 % (11.5-14.5) Platelet Count 211 x10^3/uL (140-400) Neutrophils (%) (Auto) 63 % (31-73) Lymphocytes (%) (Auto) 19 % (24-48) Monocytes (%) (Auto) 10 % (0-9) Eosinophils (%) (Auto) 6 % (0-3) Basophils (%) (Auto) 1 % (0-3) Neutrophils # (Auto) 3.8 x10^3/uL (1.8-7.7) Lymphocytes # (Auto) 1.2 x10^3/uL (1.0-4.8) Monocytes # (Auto) 0.6 x10^3/uL (0.0-1.1) Eosinophils # (Auto) 0.4 x10^3/uL (0.0-0.7) Basophils # (Auto) 0.1 x10^3/uL (0.0-0.2) Sodium Level 140 mmol/L (136-145) Potassium Level 4.4 mmol/L (3.5-5.1) Chloride Level 105 mmol/L (98-107) Carbon Dioxide Level 24 mmol/L (21-32) Anion Gap 11 (6-14) Blood Urea Nitrogen 21 mg/dL (8-26) Creatinine 1.2 mg/dL (0.7-1.3) Estimated GFR (Cockcroft-Gault) 77.5 BUN/Creatinine Ratio 18 (6-20) Glucose Level 133 mg/dL (70-99) Calcium Level 7.7 mg/dL (8.5-10.1) Total Bilirubin 0.3 mg/dL (0.2-1.0) Aspartate Amino Transf (AST/SGOT) 33 U/L (15-37) Alanine Aminotransferase (ALT/SGPT) 43 U/L (16-63) Alkaline Phosphatase 89 U/L (46-116) Total Protein 6.2 g/dL (6.4-8.2) Albumin 2.8 g/dL (3.4-5.0) Albumin/Globulin Ratio 0.8 (1.0-1.7) Brief Hospital Course Mr. Landon is a 48 old [AA male who in high likelihodd has undiagnosed BARBY< he comes for SOA and has moderate ascites on imaging but clnically is quite remarkable, causing him SOA and anxiety and desaturations, LIkely BARBY< no COPD< I wrote for OP sleep study HE has some coverage issues and he requests me to write all her rx for lisinopril, coreg.asa, lasix, kcl, etc Pt seen and examined HOme today after Paracentesis PCP is actually dr Jerad Vo,. last seen 2 yrs ago PT initialy was hesitatnt to have paracentesis done, stayed over the weekend but bec of soa and desats opted to have it done HE WILL NOT QUALIFY for HOME O2 bec he DOES NOT HAVE A chronic lung dx dw dc 32 Discharge Information Condition at Discharge: Improved, Stable Disposition/Orders: D/C to Home Scheduled Aspirin (Aspirin) 81 Mg Tab.chew, 1 TAB PO DAILY, #30 Ref 3 (Reported) Entered as Reported by: WKAKU WILDER on 07/20/15201 Last Action: Continued on 07/06/19839 by DILLON COFFMAN Carvedilol (Carvedilol ) 12.5 Mg Tablet, 1 TAB PO BID, #180 Ref 1 (Reported) Entered as Reported by: KWAKU WILDER on 07/20/15201 Last Action: Continued on 07/06/19839 by DILLON COFFMAN Furosemide (Lasix) 40 Mg Tablet, 1 TAB PO DAILY, #90 Ref 1 (Reported) Entered as Reported by: KWAKU WILDER on 07/20/15201 Last Action: Continued on 07/06/19839 by DILLON COFFMAN Lisinopril (Lisinopril) 20 Mg Tablet, 1 TAB PO DAILY, #30 Ref 5 (Reported) Entered as Reported by: KWAKU WILDER on 07/20/15201 Last Action: Continued on 07/06/19839 by DILLON COFFMAN Potassium Chloride (Klor-Con M20) 20 Meq Tab.er.prt, 1 TAB PO DAILY, #90 Ref 1 (Reported) Entered as Reported by: KWAKU WILDER on 07/20/15201 Last Action: Continued on 07/06/19839 by DILLON COFFMAN Scheduled PRN Albuterol Sulfate (Proair Hfa Inhaler) 8.5 Gm Hfa.aer.ad, 1 PUFF INH PRN Q6HRS PRN for SHORTNESS OF BREATH for 30 Days, Ref 0 Prescribed by: DILLON COFFMAN on 07/07/19905 DILLON COFFMAN MD Jul 07, 2019 09:10
--- NOTE | 2019-07-07 09:18 | DISCH ---
DISCHARGE INSTRUCTIONS Condition on Discharge Condition on Discharge: Stable Activity After Discharge Activity Instructions for Disc: Activity as tolerated Weight Bearing Status after Di: As tolerated Diet after Discharge Diet after Discharge: Cardiac Checks after Discharge Checks after discharge: Check blood press - daily DC Comment: avoid alcohol and smoking. Contacting the DRHoward after DC Call your doctor for: Concerns you may have Follow-Up Follow up with: Dr. JOHNNY Luna in 5 days JOHNNY LUNA MD Jul 07, 2019 09:18
[2019-07-07 09:20] VITALS: BP 129/65
[2019-07-07] MEDS ORDERED: SPIR50TA4 PO (09:21)
--- NOTE | 2019-07-07 09:24 | NUR ---
Pt to IR for paracentesis for diagnostic purpose. VSS throughout, tolerated without difficulty. GEOVANNA RN
--- NOTE | 2019-07-07 09:30 | PDOC ---
Provider Note Provider Note Patient had paracentesis of the abdomen. He has been seen by this morning. He is on Spironolacone 100 mg daily started by the instructor decorating. I'll decrease it to 50 mg daily and also stop the potassium chloride. Continue Lasix for now. His 6 minute walk was normal. He does not need any oxygen by nasal cannula. Discussed with staff and the patient.He Will see me in the office in 5 days. JOHNNY LUNA MD Jul 07, 2019 09:30
--- NOTE | 2019-07-07 09:58 | PDOC ---
Objective: Objective: Reviewed chart - Dr. Miller saw over the weekend per nursing and IR request - paracentesis cancelled but DC held due to SOA - then had paracentesis this morning, staff reports ~700cc removed. Vital Signs: Vital Signs Date Time Temp Pulse Resp B/P (MAP) Pulse Ox O2 Delivery O2 Flow Rate FiO2 07/07/19 09:20 129/65 (86) 98 07/07/19 09:01 102 Room Air 07/07/19 07:21 2.0 07/07/19 07:00 97.9 18 97.9 Imaging: Abd US/Doppler 07/04 Findings: Visualized pancreas is not well seen due to overlying bowel gas Liver is normal in echogenicity. Right hepatic lobe measures 19.2 cm. Portal flow is hepatopedal. Gallbladder wall thickening measures up to 0.7 cm. No cholelithiasis. No pericholecystic fluid. Common bile duct caliber is normal measuring 7 mm in diameter. The right kidney measures 13.1 x 6.8 x 6.7 cm in length and is without evidence of obstruction or stone. Patent IVC. Small ascites mostly within the pelvis. Pulsatile flow within the portal veins and splenic vein. Patent hepatic veins. Patent hepatic artery with normal velocity. IMPRESSION: 1. Hepatomegaly and ascites. 2. Pulsatile flow within the portal and splenic veins, may indicate chronic liver disease. 3. Gallbladder wall thickening, may relate to chronic liver disease. PE: GEN: NAD LUNGS: room air - seems breathless at times HEART: RRR ABD: distended, round, soft, non-tender NEURO/PSYCH: A & O 3 A/P: Orthopnea, abd distention Hepatomegaly, ascites H/o heart failure - thought unlikely causing his symptoms at this time -- DC per primary - follow-up re: fluid studies and w/ GI at some point - [facility] Hopefully will not resume drinking. Follow-up w/ cardiology for echocardiogram. Needs outpt screening colonoscopy +/- EGD. CHERYL SMITH Jul 07, 2019 09:58
[2019-07-07 11:00] VITALS: BP 133/91
--- NOTE | 2019-07-07 11:41 | NUR ---
pt discharged home with significant other. meds and follow up reviewed. pt had no IV access at time of DC. pt stable upon DC.
[2019-07-07 12:28] LABS: BF CLARITY CLEAR; BF COLOR YELLOW; BF MON % 70 %; BF PMN % 28 %; BF RBC COUNT 360 /cmm (Not Established); BF SOURCE ASCITES; BF WBC COUNT 370 /cmm (Not Established)
[2019-07-07 12:29] LABS: BF OTHER % 2 %
--- NOTE | 2019-07-07 16:34 | RAD ---
Procedure: Ultrasound guided paracentesis Clinical Indication: 48-year-old with abdominal ascites Sedation: Local anesthesia only Antibiotics: None Fluoro Time: None Contrast: Not applicable Sterility: The procedure was performed in its entirety using appropriate elements of sterile technique. Consent: The procedure was explained in its entirety to the patient or the patients designated insurance claims representative by a member of the treatment team, including a discussion of the risks, benefits and commonly accepted alternatives to the procedure, as well as the expected consequences of no therapy whatsoever. Discussion of the risks included, but was not limited to, those that are most frequent and those that are rare but possibly severe or life-threatening, as well as the possibility of unforeseen complications. Technique and Findings: Following informed consent, the patient was prepped and draped in the usual sterile fashion. Ultrasound interrogation of the abdomen revealed abdominal ascites. A hard copy ultrasound image was recorded. 1% Lidocaine was used to achieve local anesthesia over the area of interest, and a 6 Vietnamese Ajwm-B-Udclon[place] catheter was advanced into the peritoneal cavity under ultrasound guidance. 700 cc of thin yellow ascites was then withdrawn. The catheter was removed and hemostasis was achieved with manual compression. Complications: No immediate Impression: 1. Ultrasound-guided paracentesis as described
--- NOTE | 2019-07-08 17:06 | PATHOLOGY ---
Note [facility] Accession Number: [id number] TESTS RESULT FLAG UNITS REF RANGE LAB Clinician Provided Cytology Information No. of containers..01 Other (Miscellaneous) Source: 01 ASCITES DIAGNOSIS: 02 ASCITES NEGATIVE FOR MALIGNANT CELLS. FOCALLY REACTIVE MESOTHELIAL CELLS PRESENT WITHIN A BACKGROUND OF ACUTE AND CHRONIC INFLAMMATORY CELLS. EVALUATION INCLUDES EXAMINATION OF CELL BLOCK. Signed out by: 02 Mo Ruiz MD, Pathologist NPI- [id number] Performed by: Tashia James, Developer Architect ([facility]) Gross description: 01 35ML, YELLOW, CLOUDY /LCS 09/09/1840 0000 Local FLAG LEGEND: L-Low Normal,H-High Normal,LL-Alert Low,HH-Alert High <-Panic Low,>-Panic High,A-Abnormal,AA-Critical Abnormal Performed at: 01 [facility] [address] [place] [address] Vishnu Bullard MD, 02 [facility] [address] [place] [address] Mo Ruiz MD, Specimen Comment: A courtesy copy of this report has been sent to [phone], [phone] Specimen Comment: [id number], Specimen Comment: Report sent to ,DR BROWER / DR BRICENO Specimen Comment: A duplicate report has been generated due to demographic updates. Performed at: [address], [place], [place] [id number] MD Vishnu Bullard MD Phone: [phone]
== END 2019-07-07 12:30 | disposition home or self-care (01) | DRG 434 ==
LOC: ER 07:35 → 5 SOUTH 10:39
PROVIDERS: ADMIT Internal Medicine; ATTEND Internal Medicine
PROC: 0W9G3ZZ Drainage of Peritoneal Cavity, Percutaneous Approach (ICD-10-PCS; principal; 2019-07-07)
DX: K70.31 Alcoholic cirrhosis of liver with ascites (principal); E78.5 Hyperlipidemia, unspecified; F10.10 Alcohol abuse, uncomplicated; I11.0 Hypertensive heart disease with heart failure; I50.9 Heart failure, unspecified; J30.9 Allergic rhinitis, unspecified; J40 Bronchitis, not specified as acute or chronic; M10.9 Gout, unspecified; Z79.82 Long term (current) use of aspirin; Z79.899 Other long term (current) drug therapy; Z82.49 Family history of ischemic heart disease and other diseases of the circulatory system; Z83.3 Family history of diabetes mellitus
CPT/HCPCS: 36415; 49083; 71045; 74177; 76705; 80053; 83880; 85025; 85610; 87071; 87075; 88112; 88305; 89050; 93005; 93976; 94618; 94640; 96374; 96375; J2270; J2405; J7620; Q9967; 99285-25; G0378

== ENCOUNTER 2019-07-14 09:40 | Emergency (ER) | payer SELFPAY ==
[~2019-07-14] VITALS: Ht 180.3 cm; Wt 109.8 kg
[~2019-07-14 09:40] MED LIST changes: +ALBU2.5V8 INH; +SPIR50TA4 PO
--- NOTE | 2019-07-14 11:46 | PHYS DOC ---
Past Medical History Past Medical History: Bronchitis, CHF, Hypertension, Hepatitis, Liver Disease, Other Additional Past Medical Histor: ACITIES,JAUNDICE, Past Surgical History: Other Additional Past Surgical Histo: HERNIA,PARACENTESIS, Alcohol Use: Heavy Drug Use: None Adult General Chief Complaint Chief Complaint: LOWER EXTREMITY SWELLING HPI HPI Patient is a 48-year-old male, with a past history of congestive heart failure, alcoholic liver disease with ascites, who presents to the emergency room for evaluation. His main complaint is a cough, which developed overnight last night, associated with nasal congestion. The cough has been productive of some clear sputum. The patient denies any pain, including any chest pain, and denies any significant shortness of breath. His main concern is the discomfort from paroxysmal coughing. He has not had any fevers or chills, nausea, vomiting. He reports a very mild increase in his pedal edema which is chronic, but reports c ompliance with his Lasix, and states that this is a waxing and waning chronic problem. He was hospitalized here last month, for ascites, which she states was attributed to his liver disease, and did undergo a therapeutic paracentesis. He also is treated for bronchitis about a month ago at this facility and states he took a Z-Gasper. He is using an albuterol inhaler at home with some minimal improvement. There are no alleviating or exacerbating factors to his symptoms. Review of Systems Review of Systems Constitutional: Denies fever or chills [] Eyes: Denies change in visual acuity, redness, or eye pain [] HENT: Denies sore throat [] Respiratory: Reports nasal congestion and cough, denies shortness of breath.[] Cardiovascular: The patient denies any shortness of breath, chest pain, palpitations, or orthopnea [] GI: Denies abdominal pain, nausea, vomiting, bloody stools or diarrhea [] : Denies dysuria or hematuria [] Musculoskeletal: Denies back pain or joint pain [] Integument: Denies rash or skin lesions [] Neurologic: Denies headache, focal weakness or sensory changes [] Endocrine: Denies polyuria or polydipsia [] All other systems were reviewed and found to be within normal limits, except as documented in this note. Current Medications Current Medications Current Medications Medications (Trade) Dose Ordered Sig/Porsche Start Time Stop Time Status Last Admin Dose Admin Albuterol/ Ipratropium (Duoneb) 3 ml 1X ONCE 07/14/19 12:00 07/14/19 12:01 DC 07/14/19 11:58 3 ML Benzonatate (Tessalon Perle) 200 mg 1X ONCE 07/14/19 12:00 07/14/19 12:01 DC 07/14/19 12:21 200 MG Furosemide (Lasix) 40 mg 1X ONCE 07/14/19 12:00 07/14/19 12:01 DC 07/14/19 12:21 40 MG Allergies Allergies Allergies Coded Allergies Type Severity Reaction Last Updated Verified No Known Drug Allergies 07/05/15 No Physical Exam Physical Exam PHYSICAL EXAM: CONSTITUTIONAL: Well developed, well nourished HEAD: normocephalic, atraumatic EENT: PERRL, EOMI. Conjunctivae normal color, sclerae non-icteric; moist mucous membranes. NECK: Supple, non-tender; no meningismus. LUNGS: There are mild scattered wheezes, without rhonchi or rales. Breathing is unlabored. There is paroxysmal coughing present.Normal air movement. HEART: Regular rate and rhythm, no murmur CHEST: No deformity; non-tender ABDOMEN: The abdomen is soft, mildly distended, but non-tender, no masses or bruits. Normal bowel sounds are present. EXTREM: Normal ROM; no deformity, no calf tenderness. Normal pulses palpable in all extremities. There is 2+ bilateral pitting pedal edema. SKIN: No rash; no diaphoresis NEURO: Alert; normal speech and cognition; CN's grossly intact; strength grossly intact without focal deficit. BACK: No CVA TTP. Current Patient Data Vital Signs Vital Signs Date Time Temp Pulse Resp B/P (MAP) Pulse Ox O2 Delivery O2 Flow Rate FiO2 07/14/19 13:00 86 17 135/92 (106) 96 Room Air 07/14/19 11:00 98.0 98.0 Lab Values Laboratory Tests Test 07/14/19 12:05 07/14/19 12:20 White Blood Count 6.0 x10^3/uL (4.0-11.0) Red Blood Count 4.76 x10^6/uL (4.30-5.70) Hemoglobin 14.6 g/dL (13.0-17.5) Hematocrit 43.8 % (39.0-53.0) Mean Corpuscular Volume 92 fL (79-100) Mean Corpuscular Hemoglobin 31 pg (25-35) Mean Corpuscular Hemoglobin Concent 33 g/dL (31-37) Red Cell Distribution Width 14.1 % (11.5-14.5) Platelet Count 232 x10^3/uL (140-400) Neutrophils (%) (Auto) 55 % (31-73) Lymphocytes (%) (Auto) 21 % (24-48) L Monocytes (%) (Auto) 10 % (0-9) H Eosinophils (%) (Auto) 11 % (0-3) H Basophils (%) (Auto) 2 % (0-3) Neutrophils # (Auto) 3.3 x10^3/uL (1.8-7.7) Lymphocytes # (Auto) 1.3 x10^3/uL (1.0-4.8) Monocytes # (Auto) 0.6 x10^3/uL (0.0-1.1) Eosinophils # (Auto) 0.7 x10^3/uL (0.0-0.7) Basophils # (Auto) 0.1 x10^3/uL (0.0-0.2) Troponin I Quantitative < 0.017 ng/mL (0.000-0.055) HG-Vaz-L-Type Natriuretic Peptide 1156 pg/mL (0-124) H Influenza Type A Antigen Negative (NEGATIVE) Influenza Type B Antigen Negative (NEGATIVE) Laboratory Tests 07/14/19 12:05 EKG EKG Normal sinus rhythm at a rate of 87 beats for minute, left axis deviation, normal intervals. There are no acute ischemic ST/T changes.[] Radiology/Procedures Radiology/Procedures PROCEDURE: CHEST PA & LATERAL Chest, PA and Lateral: Technique: PA and lateral views of the chest were obtained. History: Cough, congestion. Comparison: 07/04/2019. Findings/ impression: Mild cardiomegaly. Mild prominent bilateral perihilar interstitial lung markings could be mild edema or bronchitis. [] Course & Med Decision Making Course & Med Decision Making Pertinent Labs and Imaging studies reviewed. (See chart for details) []2:35 PM: Patient's lab initially hemolyzed, was redrawn apparently hemolyzed again. Before I had a chance to discuss the patient's care with him, he eloped from the emergency department, reportedly having signed an AMA paper. Was not aware of the patient's eminent departure until he had a runny left the emergency department and did not get a chance to speak with him regarding his follow-up care. Dragon Disclaimer Dragon Disclaimer This electronic medical record was generated, in whole or in part, using a voice recognition dictation system. Departure Departure Impression: Primary Impression: Cough Disposition: 07 AGAINST MEDICAL ADVICE (he eloped) Condition: STABLE Referrals: JOHNNY LUNA MD (PCP) KAYE FINNEY MD Jul 14, 2019 11:46
[2019-07-14] MEDS ORDERED: IPRATRPIUM/ALBUTEROL 0.5/2.5MG 3 ML NEBU. NEB ONE (12:00)
[2019-07-14] MEDS ORDERED: BENZONATATE 100 MG CAPSULE. PO ONE (12:00)
[2019-07-14] MEDS ORDERED: FUROSEMIDE 40 MG/4 ML VIAL. IVP ONE (12:00)
[2019-07-14 12:16] LABS: BASO # 0.1 x10^3/uL (0.0-0.2); BASO % 2 % (0-3); EOS # 0.7 x10^3/uL (0.0-0.7); EOS % 11 % (0-3); HEMATOCRIT 43.8 % (39.0-53.0); HEMOGLOBIN 14.6 g/dL (13.0-17.5); LYMPH # 1.3 x10^3/uL (1.0-4.8); LYMPH % 21 % (24-48); MEAN CORPUSCULAR HEMOGLOBIN 31 pg (25-35); MEAN CORPUSCULAR HGB CONC 33 g/dL (31-37); MEAN CORPUSCULAR VOLUME 92 fL (79-100); MONO # 0.6 x10^3/uL (0.0-1.1); MONO % 10 % (0-9); NEUT # 3.3 x10^3/uL (1.8-7.7); NEUT % 55 % (31-73); PLATELET COUNT 232 x10^3/uL (140-400); RED BLOOD COUNT 4.76 x10^6/uL (4.30-5.70); RED CELL DISTRIBUTION WIDTH 14.1 % (11.5-14.5)
--- NOTE | 2019-07-14 12:25 | RAD ---
Chest, PA and Lateral: Technique: PA and lateral views of the chest were obtained. History: Cough, congestion. Comparison: 07/04/2019. Findings/ impression: Mild cardiomegaly. Mild prominent bilateral perihilar interstitial lung markings could be mild edema or bronchitis. Electronically signed by: Duane Ba MD (07/14/2019 12:22 PM) [id number]
[2019-07-14 13:00] LABS: INFLUENZA A PATIENT NEGATIVE (NEGATIVE); INFLUENZA B PATIENT NEGATIVE (NEGATIVE)
--- NOTE | 2019-07-14 13:14 | EKG ---
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
[2019-07-14 14:00] VITALS: BP 148/95
== END 2019-07-14 14:29 | disposition left against medical advice (07) ==
LOC: ER 09:40
DX: R05 Cough (principal); R09.81 Nasal congestion; I11.0 Hypertensive heart disease with heart failure; I50.9 Heart failure, unspecified; F10.20 Alcohol dependence, uncomplicated; Y90.9 Presence of alcohol in blood, level not specified
CPT/HCPCS: 36415; 71046; 83880; 84484; 85025; 87804; 93005; 94640; 96374; 99285; J1940; J7620

== ENCOUNTER 2019-08-05 14:35 | Inpatient (IN) | payer SELFPAY ==
[~2019-08-05] VITALS: Ht 180.3 cm; Wt 110.7 kg
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
[2019-08-05 15:12] LABS: BASO # 0.1 x10^3/uL (0.0-0.2); BASO % 1 % (0-3); EOS # 0.4 x10^3/uL (0.0-0.7); EOS % 7 % (0-3); HEMATOCRIT 47.4 % (39.0-53.0); HEMOGLOBIN 15.4 g/dL (13.0-17.5); LYMPH # 1.3 x10^3/uL (1.0-4.8); LYMPH % 21 % (24-48); MEAN CORPUSCULAR HEMOGLOBIN 30 pg (25-35); MEAN CORPUSCULAR HGB CONC 33 g/dL (31-37); MEAN CORPUSCULAR VOLUME 93 fL (79-100); MONO # 0.7 x10^3/uL (0.0-1.1); MONO % 11 % (0-9); NEUT # 3.6 x10^3/uL (1.8-7.7); NEUT % 60 % (31-73); PLATELET COUNT 196 x10^3/uL (140-400); RED BLOOD COUNT 5.11 x10^6/uL (4.30-5.70); RED CELL DISTRIBUTION WIDTH 15.5 % (11.5-14.5)
[2019-08-05 15:19] LABS: PROTHROMBIN TIME PATIENT 15.4 SEC (11.7-14.0)
[2019-08-05 15:27] LABS: CALCIUM 7.9 mg/dL (8.5-10.1); CREATININE 1.1 mg/dL (0.7-1.3); GFR 85.4; POTASSIUM 4.4 mmol/L (3.5-5.1)
--- NOTE | 2019-08-05 15:38 | RAD ---
CHEST PA LATERAL History: Shortness of breath Comparison: July 14, 2019 Findings: 2 views of the chest are submitted. Pericardial cardiac silhouette is again enlarged although stable. There is some linear likely atelectasis of the mid left hemithorax as seen previously. There is also mild right perihilar opacity as seen previously which may be component of atelectasis. There is no new lobar consolidation, pleural fluid, pneumothorax. Impression: 1. There is some linear opacity of the right perihilar region and mid left hemithorax as seen previously which may be atelectasis. There is a similar degree of enlargement of the pericardial cardiac silhouette. Electronically signed by: Aidan Alvarez MD (08/05/2019 3:35 PM) [facility]
[2019-08-05 15:39] LABS: ALBUMIN 2.8 g/dL (3.4-5.0); ALBUMIN/GLOBULIN RATIO 0.8 (1.0-1.7); MAGNESIUM 2.5 mg/dL (1.8-2.4); TOTAL BILIRUBIN 0.7 mg/dL (0.2-1.0); TOTAL PROTEIN 6.4 g/dL (6.4-8.2)
[2019-08-05] MEDS ORDERED: IOHEXOL 300 MG/ML 100ML VIAL. IV ONE (16:30)
[2019-08-05] MEDS ORDERED: IOHEXOL 300 MG/ML 100ML VIAL. ONE (16:30)
[2019-08-05] MEDS ORDERED: CONTRAST GIVEN. MC PRN (16:45)
--- NOTE | 2019-08-05 16:55 | RAD ---
CT ABD PELV W/ IV CONTRST ONLY Indication: Abdominal pain, abdominal distention. Exposure: One or more of the following individualized dose reduction techniques were utilized for this examination: 1. Automated exposure control 2. Adjustment of the mA and/or kV according to patient size 3. Use of iterative reconstruction technique. Technique: Intravenous contrast was given. No oral contrast per request. Comparison: 07/04/2019 FINDINGS: Lung bases are clear. Heart size is enlarged. Liver appears grossly unremarkable. Reflux of contrast into a distended inferior vena cava and distended hepatic veins, finding which can be seen with right heart strain or failure. Spleen is not enlarged. Mild stranding in the peripancreatic fat although note this is fairly generalized finding. No definite area of pancreatic and homogeneity. No evidence of adrenal mass. Kidneys demonstrate symmetric enhancement without hydronephrosis or evidence of mass. Perinephric fatty stranding, but again this is fairly uniform throughout the abdomen. Gallbladder is thick-walled but is contracted with pericholecystic fluid. No evidence of calcified gallstone. Aorta is mildly calcified, no evidence of aneurysm. No significant lymph node enlargement. Stomach is not distended. No significant small bowel distention. No definite evidence of acute colitis. The appendix is probably seen and within normal limits. Moderate ascites identified throughout the abdomen and pelvis the larger pockets demonstrate simple fluid measurements, about 10 Hounsfield units. Diffuse stranding within the peritoneal and retroperitoneal fat. Diffuse stranding within the body wall fat. No evidence of pneumoperitoneum. Wall thickening of the urinary bladder. Degenerative spondylosis of the spine is again seen similar alignment. Degenerative changes at the hips. Subchondral lesion of the anterosuperior right and left femoral heads, suspicious for osteonecrosis. These appear similar. IMPRESSION: 1. Moderate abdominal and pelvic ascites, slightly greater than what was seen on the prior study. Diffuse edema or inflammation throughout the peritoneal, retroperitoneal and subcutaneous fat is seen, also increased from the prior study. Findings are nonspecific, but could indicate nonspecific edema or inflammatory process. Findings could be seen with infectious peritonitis. 2. Reflux of contrast into distended IVC and hepatic veins, can be seen with right heart strain or failure. 3. Gallbladder wall thickening, could be due to the ascites or cholecystitis. No evidence of calcified gallstone. 4. Urinary bladder wall thickening. Correlate for cystitis. 5. Subchondral lesions at the right and left femoral head, suspicious for osteonecrosis. Correlate for risk factors. Electronically signed by: Rony Bello MD (08/05/2019 4:52 PM) [id number]
[2019-08-05] MEDS ORDERED: FUROSEMIDE 20 MG/2 ML VIAL. IVP STA (17:38)
[2019-08-05] MEDS ORDERED: ONDANSETRON PF 4 MG/2 ML VIAL. IV PRN (18:00)
[2019-08-05] MEDS: fentaNYL PF VIAL 100 MCG/2 ML VIAL IV PRN ×3 (18:00→23:04)
[2019-08-05 18:36] LABS: BILIRUBIN,URINE NEGATIVE (NEG); CLARITY,URINE CLEAR; COLOR,URINE YELLOW; NITRITE,URINE NEGATIVE (NEG); PROTEIN,URINE NEGATIVE (NEG-TRACE)
[2019-08-05 18:43] LABS: HYALINE CASTS, URINE MODERATE /HPF; SQUAMOUS EPITHELIAL CELL,UR FEW /LPF
[2019-08-05 18:44] LABS: BACTERIA,URINE 0 /HPF (0-FEW); RBC,URINE OCC /HPF (0-2)
[2019-08-05 20:10] VITALS: BP 143/100
[2019-08-05] MEDS ORDERED: predniSONE 20 MG TABLET PO ONE (23:00)
[2019-08-05] MEDS ORDERED: IPRATRPIUM/ALBUTEROL 0.5/2.5MG 3 ML NEBU. NEB ONE (23:30)
[2019-08-05 23:33] VITALS: BP 133/80
[2019-08-06] VITALS (8 sets, daily range): BP systolic 110–145; BP diastolic 46–109
[2019-08-06 04:05] LABS: HEMATOCRIT 45.8 % (39.0-53.0); HEMOGLOBIN 15.1 g/dL (13.0-17.5); RED BLOOD COUNT 4.97 x10^6/uL (4.30-5.70); RED CELL DISTRIBUTION WIDTH 15.4 % (11.5-14.5); WHITE BLOOD COUNT 5.5 x10^3/uL (4.0-11.0)
[2019-08-06 04:28] LABS: ALBUMIN 2.8 g/dL (3.4-5.0); ALBUMIN/GLOBULIN RATIO 0.8 (1.0-1.7); CALCIUM 7.9 mg/dL (8.5-10.1); GFR 95.3; POTASSIUM 4.4 mmol/L (3.5-5.1); TOTAL BILIRUBIN 0.6 mg/dL (0.2-1.0); TOTAL PROTEIN 6.4 g/dL (6.4-8.2)
--- NOTE | 2019-08-06 06:27 | EKG ---
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
[2019-08-06] MEDS: IPRATRPIUM/ALBUTEROL 0.5/2.5MG 3 ML NEBU. NEB SCH ×3 (07:26→20:05)
[2019-08-06] MEDS ORDERED: ASPIRIN CHEWABLE 81 MG TABLET. PO SCH (09:00)
--- NOTE | 2019-08-06 09:00 | PDOC2 ---
GI CONSULT Reason For Consult: ascites HPI: HPI: 49 y/o male who we saw last month for orthopnea and abdominal distention. Imaging (doppler) noted hepatomegaly and ascites. Underwent paracentesis (700cc - fluid negative for infection and malignancy) on 07/07/19. Cardiology saw last admission re: elevated BNP w/ normal CXR and no LE edema. Recommended outpt echocardiogram. Apparently hasn't taken meds since discharge - someone stole them, didn't call PCP, can't afford to make an appointment, hasn't felt well enough to do much. Back w/ shortness of breath, abdominal distention, and gout pain in right great toe. Hasn't been drinking. No previous EGD or colonoscopy - both recommended as ou tpt last time. No GB or pancreas history. PMH: PMH: CHF, pneumonia, bronchitis, HTN, ?HLD, ?DM, DDD, allergic rhinitis, gout umbilical hernia repair, paracentesis FH: Family History: CAD Social History: Smoke: No (h/o vaping) ALCOHOL: other (heavy in the past - says no longer drinking) Drugs: None ROS: GEN: Denies fevers, chills, sweats HEENT: Denies blurred vision, sore throat CV: Denies chest pain RESP: +SOA GI: Per HPI : Denies hematuria, dysuria ENDO: Denies weight changes NEURO: Denies confusion, dizziness MSK: Denies weakness, joint pain/swelling SKIN: Denies jaundice, pruritus Vitals: Vitals: Vital Signs Date Time Temp Pulse Resp B/P (MAP) Pulse Ox O2 Delivery O2 Flow Rate FiO2 08/06/19 07:26 100 Room Air 08/06/19 07:00 98.1 111 18 121/46 (71) 98.1 Labs: Labs: Laboratory Tests Test 08/05/19 15:01 08/05/19 18:28 08/06/19 03:05 White Blood Count 6.0 x10^3/uL (4.0-11.0) 5.5 x10^3/uL (4.0-11.0) Red Blood Count 5.11 x10^6/uL (4.30-5.70) 4.97 x10^6/uL (4.30-5.70) Hemoglobin 15.4 g/dL (13.0-17.5) 15.1 g/dL (13.0-17.5) Hematocrit 47.4 % (39.0-53.0) 45.8 % (39.0-53.0) Mean Corpuscular Volume 93 fL (79-100) 92 fL (79-100) Mean Corpuscular Hemoglobin 30 pg (25-35) 30 pg (25-35) Mean Corpuscular Hemoglobin Concent 33 g/dL (31-37) 33 g/dL (31-37) Red Cell Distribution Width 15.5 % (11.5-14.5) 15.4 % (11.5-14.5) Platelet Count 196 x10^3/uL (140-400) 205 x10^3/uL (140-400) Neutrophils (%) (Auto) 60 % (31-73) Lymphocytes (%) (Auto) 21 % (24-48) Monocytes (%) (Auto) 11 % (0-9) Eosinophils (%) (Auto) 7 % (0-3) Basophils (%) (Auto) 1 % (0-3) Neutrophils # (Auto) 3.6 x10^3/uL (1.8-7.7) Lymphocytes # (Auto) 1.3 x10^3/uL (1.0-4.8) Monocytes # (Auto) 0.7 x10^3/uL (0.0-1.1) Eosinophils # (Auto) 0.4 x10^3/uL (0.0-0.7) Basophils # (Auto) 0.1 x10^3/uL (0.0-0.2) Prothrombin Time 15.4 SEC (11.7-14.0) Prothromb Time International Ratio 1.3 (0.8-1.1) Activated Partial Thromboplast Time 23 SEC (24-38) Sodium Level 136 mmol/L (136-145) 136 mmol/L (136-145) Potassium Level 4.4 mmol/L (3.5-5.1) 4.4 mmol/L (3.5-5.1) Chloride Level 103 mmol/L (98-107) 102 mmol/L (98-107) Carbon Dioxide Level 24 mmol/L (21-32) 27 mmol/L (21-32) Anion Gap 9 (6-14) 7 (6-14) Blood Urea Nitrogen 15 mg/dL (8-26) 14 mg/dL (8-26) Creatinine 1.1 mg/dL (0.7-1.3) 1.0 mg/dL (0.7-1.3) Estimated GFR (Cockcroft-Gault) 85.4 95.3 BUN/Creatinine Ratio 14 (6-20) 14 (6-20) Glucose Level 129 mg/dL (70-99) 158 mg/dL (70-99) Calcium Level 7.9 mg/dL (8.5-10.1) 7.9 mg/dL (8.5-10.1) Magnesium Level 2.5 mg/dL (1.8-2.4) Total Bilirubin 0.7 mg/dL (0.2-1.0) 0.6 mg/dL (0.2-1.0) Aspartate Amino Transf (AST/SGOT) 41 U/L (15-37) 38 U/L (15-37) Alanine Aminotransferase (ALT/SGPT) 28 U/L (16-63) 27 U/L (16-63) Alkaline Phosphatase 112 U/L (46-116) 105 U/L (46-116) Troponin I Quantitative 0.052 ng/mL (0.000-0.055) GT-Dhs-X-Type Natriuretic Peptide 1288 pg/mL (0-124) Total Protein 6.4 g/dL (6.4-8.2) 6.4 g/dL (6.4-8.2) Albumin 2.8 g/dL (3.4-5.0) 2.8 g/dL (3.4-5.0) Albumin/Globulin Ratio 0.8 (1.0-1.7) 0.8 (1.0-1.7) Lipase 106 U/L (73-393) Procalcitonin < 0.10 ng/mL (0.00-0.10) Urine Collection Type Unknown Urine Color Yellow Urine Clarity Clear Urine pH 6.0 Urine Specific [place] >=1.030 Urine Protein Negative mg/dL (NEG-TRACE) Urine Glucose (UA) Negative mg/dL (NEG) Urine Ketones (Stick) Negative mg/dL (NEG) Urine Blood Negative (NEG) Urine Nitrite Negative (NEG) Urine Bilirubin Negative (NEG) Urine Urobilinogen Dipstick 1.0 mg/dL (0.2 mg/dL) Urine Leukocyte Esterase Negative (NEG) Urine RBC Occ /HPF (0-2) Urine WBC 1-4 /HPF (0-4) Urine Squamous Epithelial Cells Few /LPF Urine Bacteria 0 /HPF (0-FEW) Urine Hyaline Casts Moderate /HPF Urine Mucus Marked /LPF Allergies: Coded Allergies: No Known Drug Allergies (Unverified , 07/05/15) Medications: Current Medications Medications (Trade) Dose Ordered Sig/Porsche Route PRN Reason Start Time Stop Time Status Last Admin Dose Admin Iohexol (Omnipaque 300 Mg/ml) 75 ml 1X ONCE IV 08/05/19 16:30 08/05/19 16:31 DC 08/05/19 16:30 Furosemide (Lasix) 20 mg 1X STAT IVP 08/05/19 17:38 08/05/19 17:40 DC 08/05/19 17:58 Fentanyl Citrate (Fentanyl 2ml Vial) 50 mcg PRN Q1HR PRN IV PAIN 08/05/19 18:00 08/06/19 17:59 08/05/19 23:04 Prednisone (Prednisone) 20 mg 1X ONCE PO 08/05/19 23:00 08/05/19 23:01 DC 08/05/19 23:05 Albuterol/ Ipratropium (Duoneb) 3 ml RTQID NEB 08/06/19 08:00 08/06/19 07:26 Albuterol/ Ipratropium (Duoneb) 3 ml 1X ONCE NEB 08/05/19 23:30 08/05/19 23:31 DC 08/05/19 23:06 Imaging: Imaging: CXR Impression: 1. There is some linear opacity of the right perihilar region and mid left hemithorax as seen previously which may be atelectasis. There is a similar degree of enlargement of the pericardial cardiac silhouette. CT A/P IMPRESSION: 1. Moderate abdominal and pelvic ascites, slightly greater than what was seen on the prior study. Diffuse edema or inflammation throughout the peritoneal, retroperitoneal and subcutaneous fat is seen, also increased from the prior study. Findings are nonspecific, but could indicate nonspecific edema or inflammatory process. Findings could be seen with infectious peritonitis. 2. Reflux of contrast into distended IVC and hepatic veins, can be seen with right heart strain or failure. 3. Gallbladder wall thickening, could be due to the ascites or cholecystitis. No evidence of calcified gallstone. 4. Urinary bladder wall thickening. Correlate for cystitis. 5. Subchondral lesions at the right and left femoral head, suspicious for osteonecrosis. Correlate for risk factors. PE: GEN: NAD HEENT: Atraumatic, PERRL LUNGS: diminished anteriorly HEART: mildly tachycardic ABD: some distention, non-tender EXTREMITY: right great toe w/ warmth, tenderness, and erythema NEURO/PSYCH: very drowsy A/P: A/P: Shortness of breath, abdominal distention, non-compliance Ascites - ?alcoholic liver disease ?CHF -- Lasix restarted. Plans for paracentesis - d/w IR staff, check fluid studies. Check viral hepatitis panel for completeness. ?echocardiogram CHERYL SMITH Aug 06, 2019 09:00
[2019-08-06] MEDS: FUROSEMIDE 40 MG TABLET. PO SCH (09:50)
[2019-08-06] MEDS: CARVEDILOL 12.5 MG TABLET. PO SCH ×2 (09:51→17:38)
[2019-08-06] MEDS: LISINOPRIL 20 MG TABLET PO SCH (09:51)
[2019-08-06] MEDS: predniSONE 20 MG TABLET PO SCH (09:52)
--- NOTE | 2019-08-06 09:59 | RAD ---
Procedure: Ultrasound guided paracentesis Clinical Indication: Adult male with abdominal ascites Sedation: Local anesthesia only Antibiotics: None Fluoro Time: None Contrast: Not applicable Sterility: The procedure was performed in its entirety using appropriate elements of sterile technique. Consent: The procedure was explained in its entirety to the patient or the patients designated claims representative by a member of the treatment team, including a discussion of the risks, benefits and commonly accepted alternatives to the procedure, as well as the expected consequences of no therapy whatsoever. Discussion of the risks included, but was not limited to, those that are most frequent and those that are rare but possibly severe or life-threatening, as well as the possibility of unforeseen complications. Technique and Findings: Following informed consent, the patient was prepped and draped in the usual sterile fashion. Ultrasound interrogation of the abdomen revealed abdominal ascites. A hard copy ultrasound image was recorded. 1% Lidocaine was used to achieve local anesthesia over the area of interest, and a 6 [place] Gkki-L-Euurwjui catheter was advanced into the peritoneal cavity under ultrasound guidance. 1400 cc of thin noreen ascites was then withdrawn. The catheter was removed and hemostasis was achieved with manual compression. Complications: No immediate Impression: 1. Ultrasound-guided paracentesis as described
--- NOTE | 2019-08-06 10:07 | PDOC ---
Provider Note Provider Note H&P dictated #[id number] JOHNNY LUNA MD Aug 06, 2019 10:07
--- NOTE | 2019-08-06 10:31 | HP ---
ADMIT DATE: 08/05/2019 HISTORY OF PRESENT ILLNESS: This 49-year-old -[place] male, known to me from previous visits in the office about 2 years ago, has a history of alcoholism and was recently admitted to this institution a few weeks ago. At that time, he was admitted for alcoholism and ascites. He was restarted on his home medications including Lasix and spironolactone. He had paracentesis and 700 mL of fluid was removed. However, after the discharge, the patient did not come to the office for any appointments as well as did not fill his medications. He states that he had lost his backpack and could not afford to buy more medications, but that was long before his last admission. He started becoming more short of breath and also had a flare-up of gout in his right foot. Because of the dyspnea, abdominal distention and right foot pain, the patient came to the Emergency Room. In the Emergency Room, the patient was evaluated and admitted for further evaluation and management. REVIEW OF SYSTEMS: The patient does admit to some dyspnea, although it is improving after his paracentesis today that had 1400 mL of fluid removed. He has not been taking any medications. He denies any cold, cough, congestion. He admits to dyspnea, weakness, swelling of the legs. Denies any diarrhea. He does admit to some constipation. He denies any fever or chills. Denies any chest pains or palpitations. Other systems reviewed and are negative. PAST MEDICAL HISTORY: The patient has a history of alcoholism. Echocardiogram in 2015 showed ejection fraction of 65%, has likely diastolic CHF, hypertension, hyperlipidemia, low back pain, degenerative disk disease, allergic rhinitis, noncompliance, history of alcoholism as noted earlier, possible obstructive sleep apnea. PAST SURGICAL HISTORY: Negative for surgeries, had paracentesis x 2. The patient has a history of hernia. FAMILY HISTORY: Father had coronary artery disease, had CABG and stents, father had hyperlipidemia. SOCIAL HISTORY: History of alcoholism. No history of significant smoking. The patient denies any drug use. ALLERGIES: None known any. MEDICATIONS: Reviewed and reconciled. He has not been taking any medications. PHYSICAL EXAMINATION: VITAL SIGNS: Temperature 98.2, pulse 107 per minute, respirations 19 per minute, blood pressure 145/98 mmHg, O2 sats 92% on room air. GENERAL: The patient is a middle-aged -[place] male who is alert, oriented, obese, and in mild distress. EYES: Pupils are reacting to light. Conjunctivae are pale. Sclerae are muddy. HENT: Mild congestion of throat. SKIN: Warm and dry. There is no cyanosis. NECK: Supple. JVP normal. No thyromegaly. Trachea midline. LUNGS: Decreased breath sounds at bases. CARDIOVASCULAR: S1, S2 regular. ABDOMEN: Soft, ascites present. Abdomen is obese and distended, nontender. Bowel sounds present. EXTREMITIES: Left leg, no edema. Right foot and leg edema present, has pain with movement of the right foot. CENTRAL NERVOUS SYSTEM: Alert and oriented. No tremors. LABORATORY DATA: WBC count 6, hemoglobin 15.4, platelet count 196,000. INR is 1.3. Urinalysis is negative. Sodium 136, potassium 4.4, glucose 129 and 260, magnesium 2.5, AST 41, ALT 28, albumin 2.8. WBC count 6, hemoglobin 15.4. Chest x-ray shows atelectasis. CT scan of the abdomen and pelvis showed moderate abdominal and pelvic ascites, gallbladder wall thickening, urinary bladder wall thickening, subchondral lesions in the right and left femoral head suspicious for osteonecrosis. IMPRESSION: 1. Cirrhosis of liver. 2. Ascites. 3. Alcoholism. 4. Hypertension. 5. Severe noncompliance. 6. Acute gout of the right foot. 7. Congestive heart failure, diastolic. 8. Hyperlipidemia. 9. Obesity. 10. Possible obstructive sleep apnea. 11. Possible bilateral avascular necrosis of hip, although the patient does not have any hip pain. PLAN: The patient has risk factors for osteonecrosis due to alcoholism. We will give him another 5 mg of prednisone today and tomorrow for the acute gout. Monitor blood sugars. He may have diabetes. Order hemoglobin A1c, sliding scale insulin, fingersticks. Consult Dr. Casanova for GI evaluation and management. The patient had paracentesis with 1400 mL fluid removed. The patient is strongly advised to avoid alcohol and take his medications regularly. Medications have been restarted. Consult Dr. Collier for pulmonary evaluation and management. Order echocardiogram and hemoglobin A1c. For details, please refer to the orders. Prognosis of this patient is very poor due to his multiple medical problems. He has been taking aspirin, but I will discontinue it because of his high risk of bleeding with cirrhosis of liver. JOHNNY LUNA MD DR: DIANN/lubna JOB#: [id number] / [id number]
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
[2019-08-06 11:28] LABS: CHOLESTEROL/HDL RATIO 5.5
[2019-08-06] MEDS: INSULIN LISPRO 300 UNITS/3 ML VIAL. SQ SCH ×2 (11:30→16:30)
[2019-08-06] MEDS: PANTOPRAZOLE 40 MG TABLET.DR. PO SCH (12:21)
--- NOTE | 2019-08-06 12:49 | CONS ---
DATE OF CONSULTATION: PULMONARY CONSULTATION ATTENDING PHYSICIAN: Naga Vo MD REASON FOR CONSULTATION: Dyspnea and suspected sleep apnea. HISTORY OF PRESENT ILLNESS: The patient is a 49-year-old obese male with a BMI of 34.9. The patient has a history of cirrhosis of liver. He came into the hospital with increasing abdominal distention. He has noncompliance as well and chronic alcoholism. The patient was found to have ascites on CT abdomen and pelvis. He underwent paracentesis and he feels better. The patient's was at the bedside and states that the patient has daytime somnolence. He has snoring and witnessed apneas. He never had a formal sleep study. He does not smoke cigarettes. No history of deep vein thrombosis or pulmonary embolism. His dyspnea has improved since paracentesis, 1400 mL of fluid removed. PAST MEDICAL HISTORY: History of alcoholism, history of cirrhosis, history of normal EF, history of diastolic CHF, hypertension, hyperlipidemia, chronic low back pain, DJD. No significant tobacco history. PAST SURGICAL HISTORY: Paracentesis x 2. FAMILY HISTORY: Noncontributory to lungs. SOCIAL HISTORY: History of alcoholism, but no significant tobacco history. ALLERGIES: None. MEDICATIONS: Reviewed as listed in the MRAD. REVIEW OF SYSTEMS: As discussed in my history of present illness, otherwise noncontributory. PHYSICAL EXAMINATION: VITAL SIGNS: His vital signs were reviewed. Pulse ox 96% on room air, afebrile. HEENT: Sclerae nonicteric. NECK: Supple. LUNGS: Clear with slightly diminished posteriorly. CARDIOVASCULAR: Regular rate. ABDOMEN: Soft, slightly distended and nontender. EXTREMITIES: With bilateral pitting edema. LABORATORY DATA: Reviewed. White cell count 5.5, hemoglobin 15.1, platelets are 205. His BUN and creatinine 14 and 1.0. Bilirubin is 0.6. INR 1.3. IMPRESSION: 1. Dyspnea secondary to abdominal distention/ascites. Clinically better since 1400 mL of ascitic fluid was removed via paracentesis. No significant pleural effusion seen on the lower part of the lungs on CT abdomen. 2. Suspected sleep apnea. He would benefit from sleep study. However, unfortunately, he does not have insurance and cannot afford to have sleep studies. 3. Chronic alcoholism. 4. Noncompliance. RECOMMENDATIONS: I have discussed with the patient that once he is able to get his insurance, he should consider doing a sleep study and I will be happy to help at that time. In the meantime, he is clinically better since paracentesis. There is no pleural effusion. From a pulmonary standpoint, I do not have much to add. Please let us know if we can be of any further assistance. will see PRN DELILAH SIEGEL MD DR: EZ/lubna JOB#: [id number] / [id number] KIAN
--- NOTE | 2019-08-06 13:34 | NUR ---
SW following pt for dc planning. Chart reviewed and discussed with RN. Pt lives at home and is self pay. GI, Cardio and Pulmonary following. Anticipate dc tomorrow per RN. SW will be available as needed.
[2019-08-06 13:46] LABS: BF CLARITY CLEAR; BF COLOR YELLOW; BF MON % 57 %; BF PMN % 43 %; BF RBC COUNT 420 /cmm (Not Established); BF SOURCE PERITONEAL; BF WBC COUNT 340 /cmm (Not Established)
--- NOTE | 2019-08-06 13:48 | CARD ---
MR#: [id number] Date of Study: 08/06/2019 Ordering Physician: JOHNNY LUNA, Referring Physician: JOHNNY LUNA, Tech: Sandy Hernandez APPROVED REPORT EXAM: Two-dimensional and M-mode echocardiogram with Doppler and color Doppler. Other Information Quality : AverageHR: 98bpm INDICATION Congestive Heart Failure 2D DIMENSIONS RVDd4.1 (2.9-3.5cm)Left Atrium(2D)4.8 (1.6-4.0cm) IVSd1.1 (0.7-1.1cm)Aortic Root(2D)3.0 (2.0-3.7cm) LVDd5.7 (3.9-5.9cm)LVOT Diameter2.1 (1.8-2.4cm) PWd1.2 (0.7-1.1cm)LVDs5.1 (2.5-4.0cm) FS (%) 9.8 %SV33.5 ml LVEF(%)21.2 (>50%) Aortic Valve AoV Peak Tank.90.6cm/sAoV VTI11.7cm AO Peak GR.3.3mmHgLVOT VTI 5.70cm AO Mean GR.2mmHg Mitral Valve MV E Kvyocdfs099.5cm/sMV E Peak Gr.88mmHg MV DECEL [id number] A Ecqolnkd65.3cm/s E/A Ratio2.0 TDI Lateral E' P. V11.20cm/sMedial E' P. V7.66cm/s E/Lateral E'10.0E/Medial E'14.7 Tricuspid Valve TR P. Qveelnva821pa/sRAP [id number] TR Peak Gr.58baIoPVCF41pjLg LEFT VENTRICLE The left ventricle is normal size. There is mild concentric left ventricular hypertrophy. The left ve ntricular systolic function is severely impaired. The Ejection Fraction is 25%. Flattened interventri cular septum suggestive of RV pressure/volume overload. The left ventricular diastolic function and f illing is normal for age. RIGHT VENTRICLE The right ventricle is moderately dilated. There is normal right ventricular wall thickness. Systolic function is borderline reduced. ATRIA The left atrium is mildly dilated. The right atrium is moderately dilated. The interatrial septum is intact with no evidence for an atrial septal defect or patent foramen ovale as noted on 2-D or Dopple r imaging. AORTIC VALVE The aortic valve is normal in structure and function. Doppler and Color Flow revealed mild aortic reg urgitation. There is no significant aortic valvular stenosis. MITRAL VALVE The mitral valve is normal in structure and function. There is no evidence of mitral valve prolapse. There is no mitral valve stenosis. Doppler and Color-flow revealed moderate mitral regurgitation. TRICUSPID VALVE The tricuspid valve is normal in structure and function. Doppler and Color Flow revealed moderate tri cuspid regurgitation with an estimated PAP of 55 mmHg. There is moderate pulmonary hypertension. Ther e is no tricuspid valve prolapse or vegetation. There is no tricuspid valve stenosis. PULMONIC VALVE The pulmonary valve is normal in structure and function. Doppler and Color Flow revealed no pulmonic valvular regurgitation. GREAT VESSELS The aortic root is normal in size. The IVC is dilated and collapses <50% with inspiration. PERICARDIAL EFFUSION There is no evidence of significant pericardial effusion. Critical Notification Critical Value: No <Conclusion> The left ventricular systolic function is severely impaired. The Ejection Fraction is 25%. Flattened interventricular septum suggestive of RV pressure/volume overload. Moderate mitral regurgitation. Moderate tricuspid regurgitation with an estimated PAP of 55 mmHg. There is no evidence of significant pericardial effusion. Signed by : Berny Hinkle, Electronically Approved : 08/06/2019 13:48:20
[2019-08-06] MEDS ORDERED: FUROSEMIDE 40 MG/4 ML VIAL. IVP ONE (14:30)
[2019-08-06 14:54] LABS: BARBITURATES NEG (NEG); BENZODIAZEPINES NEG (NEG); CANNABINOIDS NEG (NEG); COCAINE NEG (NEG); METHADONE NEG (NEG); OPIATES NEG (NEG); PHENCYCLIDINE NEG (NEG)
[2019-08-06 14:57] LABS: AMPHETAMINE/METHAMPHETAMINE POS (NEG)
[2019-08-06] MEDS: fentaNYL PF VIAL 100 MCG/2 ML VIAL IV PRN (14:58)
[2019-08-07 03:43] VITALS: BP 132/77
[2019-08-07 04:38] LABS: BASO % 0 % (0-3); EOS # 0.1 x10^3/uL (0.0-0.7); EOS % 2 % (0-3); HEMATOCRIT 43.1 % (39.0-53.0); HEMOGLOBIN 14.1 g/dL (13.0-17.5); LYMPH # 0.9 x10^3/uL (1.0-4.8); LYMPH % 12 % (24-48); MEAN CORPUSCULAR HEMOGLOBIN 30 pg (25-35); MEAN CORPUSCULAR HGB CONC 33 g/dL (31-37); MEAN CORPUSCULAR VOLUME 92 fL (79-100); MONO # 0.7 x10^3/uL (0.0-1.1); MONO % 8 % (0-9); NEUT # 6.3 x10^3/uL (1.8-7.7); NEUT % 79 % (31-73); PLATELET COUNT 199 x10^3/uL (140-400); RED BLOOD COUNT 4.68 x10^6/uL (4.30-5.70); RED CELL DISTRIBUTION WIDTH 15.5 % (11.5-14.5)
[2019-08-07 04:49] LABS: ALBUMIN 2.6 g/dL (3.4-5.0); ALBUMIN/GLOBULIN RATIO 0.7 (1.0-1.7); CALCIUM 7.7 mg/dL (8.5-10.1); CREATININE 1.1 mg/dL (0.7-1.3); GFR 85.4; MAGNESIUM 2.1 mg/dL (1.8-2.4); POTASSIUM 4.4 mmol/L (3.5-5.1); TOTAL BILIRUBIN 0.7 mg/dL (0.2-1.0); TOTAL PROTEIN 6.4 g/dL (6.4-8.2); URIC ACID 6.9 mg/dL (3.5-7.2)
[2019-08-07 07:00] VITALS: BP 94/67
[2019-08-07] MEDS: INSULIN LISPRO 300 UNITS/3 ML VIAL. SQ SCH ×3 (07:30→17:20)
[2019-08-07] MEDS: IPRATRPIUM/ALBUTEROL 0.5/2.5MG 3 ML NEBU. NEB SCH ×4 (07:48→19:55)
[2019-08-07] MEDS: CARVEDILOL 12.5 MG TABLET. PO SCH (08:00)
[2019-08-07] MEDS: LISINOPRIL 20 MG TABLET PO SCH (08:05)
[2019-08-07] MEDS: FUROSEMIDE 40 MG TABLET. PO SCH (08:06)
[2019-08-07] MEDS: PANTOPRAZOLE 40 MG TABLET.DR. PO SCH (08:06)
[2019-08-07] MEDS: predniSONE 20 MG TABLET PO SCH (08:06)
--- NOTE | 2019-08-07 10:00 | PDOC ---
IM PROGRESS NOTES- Subjective Subjective Right foot pain is improving. No complaints of dyspnea or dizziness. Objective Vitals/I&O Vital Signs Date Time Temp Pulse Resp B/P (MAP) Pulse Ox O2 Delivery O2 Flow Rate FiO2 08/07/19 08:05 87 94/67 08/07/19 08:00 Room Air 08/07/19 07:00 97.7 22 99 97.7 I & O 08/06/19 08/06/19 08/07/19 15:00 23:00 07:00 Intake Total 100 ml 940 ml Output Total 1400 ml Balance -1400 ml 100 ml 940 ml Physical Exam Physical Exam General appearance - alert,well appearing, and in no distress and oriented to person, place, and time Mental Status - alert, oriented to person, place, and time, affect appropriate to mood Head - normal Chest -decreased breath sounds at bases Heart - S1 and S2 normal Abdomen - soft, distended with ascites Neurological - alert and oriented Musculoskeletal - no muscular tenderness noted Extremities -2+ edema Skin - warm and dry Labs Laboratory Tests Test 08/06/19 12:16 08/06/19 14:28 08/06/19 17:10 08/06/19 20:41 Glucose (Fingerstick) 141 mg/dL (70-99) H 147 mg/dL (70-99) H 233 mg/dL (70-99) H Urine Opiates Screen Neg (NEG) Urine Methadone Screen Neg (NEG) Urine Barbiturates Neg (NEG) Urine Phencyclidine Screen Neg (NEG) Urine Amphetamine/Methamphetamine Pos (NEG) Urine Benzodiazepines Screen Neg (NEG) Urine Cocaine Screen Neg (NEG) Urine Cannabinoids Screen Neg (NEG) Urine Ethyl Alcohol Neg (NEG) Test 08/07/19 03:25 08/07/19 07:37 White Blood Count 8.0 x10^3/uL (4.0-11.0) Red Blood Count 4.68 x10^6/uL (4.30-5.70) Hemoglobin 14.1 g/dL (13.0-17.5) Hematocrit 43.1 % (39.0-53.0) Mean Corpuscular Volume 92 fL (79-100) Mean Corpuscular Hemoglobin 30 pg (25-35) Mean Corpuscular Hemoglobin Concent 33 g/dL (31-37) Red Cell Distribution Width 15.5 % (11.5-14.5) H Platelet Count 199 x10^3/uL (140-400) Neutrophils (%) (Auto) 79 % (31-73) H Lymphocytes (%) (Auto) 12 % (24-48) L Monocytes (%) (Auto) 8 % (0-9) Eosinophils (%) (Auto) 2 % (0-3) Basophils (%) (Auto) 0 % (0-3) Neutrophils # (Auto) 6.3 x10^3/uL (1.8-7.7) Lymphocytes # (Auto) 0.9 x10^3/uL (1.0-4.8) L Monocytes # (Auto) 0.7 x10^3/uL (0.0-1.1) Eosinophils # (Auto) 0.1 x10^3/uL (0.0-0.7) Basophils # (Auto) 0.0 x10^3/uL (0.0-0.2) Sodium Level 136 mmol/L (136-145) Potassium Level 4.4 mmol/L (3.5-5.1) Chloride Level 99 mmol/L (98-107) Carbon Dioxide Level 30 mmol/L (21-32) Anion Gap 7 (6-14) Blood Urea Nitrogen 16 mg/dL (8-26) Creatinine 1.1 mg/dL (0.7-1.3) Estimated GFR (Cockcroft-Gault) 85.4 BUN/Creatinine Ratio 15 (6-20) Glucose Level 113 mg/dL (70-99) H Uric Acid 6.9 mg/dL (3.5-7.2) Calcium Level 7.7 mg/dL (8.5-10.1) L Magnesium Level 2.1 mg/dL (1.8-2.4) Total Bilirubin 0.7 mg/dL (0.2-1.0) Aspartate Amino Transferase (AST) 34 U/L (15-37) Alanine Aminotransferase (ALT) 25 U/L (16-63) Alkaline Phosphatase 101 U/L (46-116) Total Protein 6.4 g/dL (6.4-8.2) Albumin 2.6 g/dL (3.4-5.0) L Albumin/Globulin Ratio 0.7 (1.0-1.7) L Glucose (Fingerstick) 161 mg/dL (70-99) H Laboratory Tests 08/07/19 03:25 Laboratory Tests 08/07/19 03:25 Meds Current Medications Medications (Trade) Dose Ordered Sig/Porsche Route PRN Reason Start Time Stop Time Status Last Admin Dose Admin Prednisone (Prednisone) 20 mg DAILY PO 08/06/19 10:00 08/07/19 08:06 Pantoprazole Sodium (Protonix) 40 mg DAILYAC PO 08/06/19 10:00 08/07/19 08:06 Furosemide (Lasix) 40 mg 1X ONCE IVP 08/06/19 14:30 08/06/19 14:33 DC 08/06/19 14:58 Assessment Assessment 1. Cirrhosis of liver. 2. Ascites. 3. Alcoholism. 4. Hypertension. 5. Severe noncompliance. 6. Acute gout of the right foot. 7. Congestive heart failure, diastolic. 8. Hyperlipidemia. 9. Obesity. 10. Possible obstructive sleep apnea. 11. Possible bilateral avascular necrosis of hip, although the patient does not have any hip pain. PLAN: The patient has risk factors for osteonecrosis due to alcoholism. We will give him another 5 mg of prednisone today and tomorrow for the acute gout. Monitor blood sugars. He may have diabetes. Order hemoglobin A1c, sliding scale insulin, fingersticks. Consult Dr. Casanova for GI evaluation and management. The patient had paracentesis with 1400 mL fluid removed. The patient is strongly advised to avoid alcohol and take his medications regularly. Medications have been restarted. Consult Dr. Collier for pulmonary evaluation and management. Order echocardiogram and hemoglobin A1c. For details, please refer to the orders. Prognosis of this patient is very poor due to his multiple medical problems. He has been taking aspirin, but I will discontinue it because of his high risk of bleeding with cirrhosis of liver. Hyperglycemia- follow-up hemoglobin A1c. Continue sliding scale insulin. Acute gout- improving. Discontinue prednisone after today's dose. Congestive heart failure- both diastolic and systolic. Systolic function is much worse with ejection fraction of 20-25%. Discussed with Dr. Cadena. Patient will need cardiac catheterization. He will discuss with the patient. Continue Lasix. I will add the low dose lisinopril and Coreg, because of low blood pre ssure monitor closely. Echocardiogram The left ventricular systolic function is severely impaired. The Ejection Fraction is 25%. Flattened interventricular septum suggestive of RV pressure/volume overload. Moderate mitral regurgitation. Moderate tricuspid regurgitation with an estimated PAP of 55 mmHg. There is no evidence of significant pericardial effusion. Cirrhosis of liver- start spironolactone Alcoholism- strongly advised to avoid alcohol. Drug abuse- positive for methamphetamine. As with the patient and the family. Strongly advised to avoid drug abuse. Condition And treatment options extensively discussed with the patient and the family. Prognosis of this patient is very poor. Plan Plan For more details regarding further plans, please refer to the orders. JOHNNY LUNA MD Aug 07, 2019 10:00
[2019-08-07 11:00] VITALS: BP 116/82
[2019-08-07] MEDS: SPIRONOLACTONE 25 MG TABLET PO SCH (11:47)
--- NOTE | 2019-08-07 14:39 | PDOC ---
CARDIOLOGY PROGRESS NOTE SUBJECTIVE: Feels better but still SOA. No chest pain. LE edema persists. OBJECTIVE: Vital Signs/I&O: Vital Signs Date Time Temp Pulse Resp B/P (MAP) Pulse Ox O2 Delivery O2 Flow Rate FiO2 08/07/19 11:12 98 Room Air 08/07/19 11:00 97.7 98 20 116/82 (93) 97.7 I & O 08/06/19 08/06/19 08/07/19 15:00 23:00 07:00 Intake Total 100 ml 940 ml Output Total 1400 ml Balance -1400 ml 100 ml 940 ml Objective: a/o x 3. normal heart tones. 3+ edema lungs with rales CURRENT MEDICATIONS: Current Medications Medications (Trade) Dose Ordered Sig/Porsche Route PRN Reason Start Time Stop Time Status Last Admin Dose Admin Spironolactone (Aldactone) 25 mg DAILY PO 08/07/19 12:00 08/07/19 11:47 DIAGNOSTIC TESTING: labs reviewed. ASSESSMENT: 1. 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 2. Would continue aggressive diuresis. Discussed with patient, will defer cath for now as his CMP is likely related to alcohol and meth use (last 1 week ago) with plans for aggressive medical therapy. 3. Continue coreg, lisinopril and spironolactone. Will plan for IV lasix BID. Supportive care. Thanks REMIGIO CATHERINE MD Aug 07, 2019 14:39
[2019-08-07 15:00] VITALS: BP 124/79
[2019-08-07] MEDS: CARVEDILOL 3.125 MG TABLET. PO SCH (17:16)
[2019-08-07 19:25] VITALS: BP 119/97
[2019-08-07 23:30] VITALS: BP 124/86
[2019-08-08 03:30] VITALS: BP 119/78
[2019-08-08 06:00] LABS: CALCIUM 8.1 mg/dL (8.5-10.1); CREATININE 1.2 mg/dL (0.7-1.3); GFR 77.2; POTASSIUM 4.3 mmol/L (3.5-5.1)
[2019-08-08 07:00] VITALS: BP 148/78
[2019-08-08] MEDS: INSULIN LISPRO 300 UNITS/3 ML VIAL. SQ SCH ×3 (07:30→16:30)
[2019-08-08] MEDS: IPRATRPIUM/ALBUTEROL 0.5/2.5MG 3 ML NEBU. NEB SCH ×4 (08:15→20:35)
[2019-08-08] MEDS: CARVEDILOL 3.125 MG TABLET. PO SCH ×2 (09:02→17:12)
[2019-08-08] MEDS: predniSONE 20 MG TABLET PO SCH (09:02)
[2019-08-08] MEDS: SPIRONOLACTONE 25 MG TABLET PO SCH (09:03)
[2019-08-08] MEDS: LISINOPRIL 20 MG TABLET PO SCH (09:03)
[2019-08-08] MEDS: PANTOPRAZOLE 40 MG TABLET.DR. PO SCH (09:03)
--- NOTE | 2019-08-08 09:05 | PDOC ---
CARDIOLOGY PROGRESS NOTE SUBJECTIVE: No new events. OBJECTIVE: Vital Signs/I&O: Vital Signs Date Time Temp Pulse Resp B/P (MAP) Pulse Ox O2 Delivery O2 Flow Rate FiO2 08/08/19 08:17 100 Room Air 08/08/19 07:00 98.5 103 18 148/78 (101) 98.5 I & O 08/07/19 08/07/19 08/08/19 15:00 23:00 07:00 Intake Total 980 ml 600 ml Balance 980 ml 600 ml Objective: No new changes to exam. Bilateral LE edema persists. CURRENT MEDICATIONS: Current Medications Medications (Trade) Dose Ordered Sig/Porsche Route PRN Reason Start Time Stop Time Status Last Admin Dose Admin Spironolactone (Aldactone) 25 mg DAILY PO 08/07/19 12:00 08/07/19 11:47 Carvedilol (Coreg) 3.125 mg BIDWMEALS PO 08/07/19 17:00 08/07/19 17:16 DIAGNOSTIC TESTING: Cr wnl ASSESSMENT: 1. Acute on chronic systolic/diastolic HF and cor pulmonale. PLAN: 1. Poor candidate for any aggressive interventions. -Continue current medical therapy, will likely need another day of IV diuresis. Ok to DC tomorrow on Lasix 80mg daily, spironolactone and lisinopril. He will need repeat labs in the near future, unsure how he will be able to obtain them, there are resources in town for low cost labs etc. Will defer to social work team. Will f/u tmrw. Thanks REMIGIO CATHERINE MD Aug 08, 2019 09:05
[2019-08-08] MEDS: FUROSEMIDE 40 MG/4 ML VIAL. IVP SCH ×2 (09:11→13:30)
--- NOTE | 2019-08-08 11:16 | PDOC ---
IM PROGRESS NOTES- Subjective Subjective Right foot pain is improving. No complaints of dyspnea or dizziness. Objective Vitals/I&O Vital Signs Date Time Temp Pulse Resp B/P (MAP) Pulse Ox O2 Delivery O2 Flow Rate FiO2 08/08/19 09:03 103 148/78 08/08/19 08:17 100 Room Air 08/08/19 07:00 98.5 18 98.5 I & O 08/07/19 08/07/19 08/08/19 15:00 23:00 07:00 Intake Total 980 ml 600 ml Balance 980 ml 600 ml Physical Exam Physical Exam General appearance - alert,well appearing, and in no distress and oriented to person, place, and time Mental Status - alert, oriented to person, place, and time, affect appropriate to mood Head - normal Chest -decreased breath sounds at bases Heart - S1 and S2 normal Abdomen - soft, distended with ascites Neurological - alert and oriented Musculoskeletal - no muscular tenderness noted Extremities -2+ edema Skin - warm and dry Labs Laboratory Tests Test 08/07/19 11:27 08/07/19 17:05 08/07/19 20:48 08/08/19 04:26 Glucose (Fingerstick) 163 mg/dL (70-99) H 189 mg/dL (70-99) H 138 mg/dL (70-99) H Sodium Level 134 mmol/L (136-145) L Potassium Level 4.3 mmol/L (3.5-5.1) Chloride Level 99 mmol/L (98-107) Carbon Dioxide Level 25 mmol/L (21-32) Anion Gap 10 (6-14) Blood Urea Nitrogen 21 mg/dL (8-26) Creatinine 1.2 mg/dL (0.7-1.3) Estimated GFR (Cockcroft-Gault) 77.2 Glucose Level 117 mg/dL (70-99) H Calcium Level 8.1 mg/dL (8.5-10.1) L Test 08/08/19 08:01 08/08/19 10:46 Glucose (Fingerstick) 118 mg/dL (70-99) H 148 mg/dL (70-99) H Laboratory Tests 08/08/19 04:26 Meds Current Medications Medications (Trade) Dose Ordered Sig/Porsche Route PRN Reason Start Time Stop Time Status Last Admin Dose Admin Lisinopril (Prinivil) 5 mg DAILY PO 08/08/19 09:00 08/08/19 09:03 Spironolactone (Aldactone) 25 mg DAILY PO 08/07/19 12:00 08/08/19 09:03 Carvedilol (Coreg) 3.125 mg BIDWMEALS PO 08/07/19 17:00 08/08/19 09:02 Furosemide (Lasix) 40 mg BID92 IVP 08/08/19 09:00 08/08/19 09:11 Assessment Assessment 1. Cirrhosis of liver. 2. Ascites. 3. Alcoholism. 4. Hypertension. 5. Severe noncompliance. 6. Acute gout of the right foot. 7. Congestive heart failure, diastolic. 8. Hyperlipidemia. 9. Obesity. 10. Possible obstructive sleep apnea. 11. Possible bilateral avascular necrosis of hip, although the patient does not have any hip pain. PLAN: The patient has risk factors for osteonecrosis due to alcoholism. We will give him another 5 mg of prednisone today and tomorrow for the acute gout. Monitor blood sugars. He may have diabetes. Order hemoglobin A1c, sliding scale insulin, fingersticks. Consult Dr. Casanova for GI evaluation and management. The patient had paracentesis with 1400 mL fluid removed. The patient is strongly advised to avoid alcohol and take his medications regularly. Medications have been restarted. Consult Dr. Collier for pulmonary evaluation and management. Order echocardiogram and hemoglobin A1c. For details, please refer to the orders. Prognosis of this patient is very poor due to his multiple medical problems. He has been taking aspirin, but I will discontinue it because of his high risk of bleeding with cirrhosis of liver. Hyperglycemia- follow-up hemoglobin A1c. Continue sliding scale insulin. Blood sugars are improving. Discontinue prednisone given for gout. Acute gout- improving. Discontinue prednisone after today's dose. Congestive heart failure- both diastolic and systolic. Systolic function is much worse with ejection fraction of 20-25%. Discussed with Dr. Cadena. Patient will need cardiac catheterization. He will discuss with the patient. Continue Lasix. I will add the low dose lisinopril and Coreg, because of low blood pressure monitor closely. Blood pressure is better today. Dr. Cadena has started him on IV Lasix twice daily until tomorrow and if stable discharge tomorrow on Lasix 80 mg daily. As per cardiology, not a candidate for cardiac cath at this time. Continue aggressive echo care but his prognosis is very poor due to his alcohol and drug abuse and severe noncompliance. Advised low-sodium d iet, ADA diet. Fluid restriction. Echocardiogram The left ventricular systolic function is severely impaired. The Ejection Fraction is 25%. Flattened interventricular septum suggestive of RV pressure/volume overload. Moderate mitral regurgitation. Moderate tricuspid regurgitation with an estimated PAP of 55 mmHg. There is no evidence of significant pericardial effusion. Cirrhosis of liver- start spironolactone Alcoholism- strongly advised to avoid alcohol. Drug abuse- positive for methamphetamine. As with the patient and the family. Strongly advised to avoid drug abuse. Condition And treatment options extensively discussed with the patient and the family. Prognosis of this patient is very poor. Plan Plan For more details regarding further plans, please refer to the orders. JOHNNY LUNA MD Aug 08, 2019 11:16
[2019-08-08] MEDS ORDERED: SPIR25TA PO (11:32)
[2019-08-08] MEDS ORDERED: FURO80TA3 PO (11:32)
[2019-08-08] MEDS ORDERED: LISI-338 PO (11:32)
[2019-08-08] MEDS ORDERED: CARV3.1210 PO (11:32)
[2019-08-08] MEDS ORDERED: PANT40TA77 PO (11:32)
--- NOTE | 2019-08-08 11:35 | DISCH ---
DISCHARGE INSTRUCTIONS Condition on Discharge Condition on Discharge: Stable Activity After Discharge Activity Instructions for Disc: Activity as tolerated, Avoid exertion Weight Bearing Status after Di: As tolerated Diet after Discharge Diet after Discharge: Cardiac (ADA with fluid restriction 1500 mL per day), Low Sodium 4 gm Checks after Discharge Checks after discharge: Check blood press - daily DC Comment: avoid alcohol and drugs. Contacting the after DC Call your doctor for: Concerns you may have Follow-Up Follow up with: Dr. JOHNNY Luna in 5 days JOHNNY LUNA MD Aug 08, 2019 11:35
[2019-08-08 11:42] VITALS: BP 147/88
--- NOTE | 2019-08-08 13:00 | NUR ---
Spoke with lab about Heme A1C. They stated it has been sent out, they predict it will be read later today or tomorrow.
[2019-08-08 15:19] VITALS: BP 130/94
[2019-08-08 16:32] LABS: BILIRUBIN,URINE NEGATIVE (NEG); CLARITY,URINE CLEAR; COLOR,URINE YELLOW; NITRITE,URINE NEGATIVE (NEG); PH,URINE 5.5; PROTEIN,URINE NEGATIVE (NEG-TRACE)
[2019-08-08 16:49] LABS: HYALINE CASTS, URINE OCCASIONAL /HPF; SQUAMOUS EPITHELIAL CELL,UR OCC /LPF
[2019-08-08 16:50] LABS: BACTERIA,URINE 0 /HPF (0-FEW); RBC,URINE 0 /HPF (0-2); WBC,URINE 0 /HPF (0-4)
--- NOTE | 2019-08-08 19:06 | PATHOLOGY ---
Note [facility] Accession Number: [id number] TESTS RESULT FLAG UNITS REF RANGE LAB Clinician Provided Cytology Information No. of containers..01 Other (Miscellaneous) Source: 01 ASCITES FLUID DIAGNOSIS: 02 ASCITES FLUID NEGATIVE FOR MALIGNANT CELLS. FOCALLY REACTIVE MESOTHELIAL CELLS IDENTIFIED WITHIN A BACKGROUND OF ACUTE AND CHRONIC INFLAMMATORY CELLS. THIS EVALUATION INCLUDES EXAMINATION OF A CELL BLOCK. Signed out by: 02 Mo Ruiz MD, Pathologist NPI- [id number] Performed by: Martha Bailey, Log Loader Helper ([facility]) Gross description: 01 35 ML, YELLOW, CLOUDY /LCS 09/09/1840 0000 Local FLAG LEGEND: L-Low Normal,H-High Normal,LL-Alert Low,HH-Alert High <-Panic Low,>-Panic High,A-Abnormal,AA-Critical Abnormal Performed at: [address] [place] [address] Vishnu Bullard MD, [address] [id number] Mo Ruiz MD, Specimen Comment: [id number] Specimen Comment: Report sent to Specimen Comment: A duplicate report has been generated due to demographic updates. Performed at: [address] [place] [address] [address], [place], [place] [id number] MD Vishnu Bullard MD Phone: [phone]
[2019-08-08 19:57] VITALS: BP 136/82
[2019-08-08 23:34] VITALS: BP 139/93
[2019-08-09 03:07] LABS: HEMOGLOBIN A1C 7.4 % (4.8-5.6)
[2019-08-09 03:49] VITALS: BP 101/79
[2019-08-09 06:02] LABS: CALCIUM 7.9 mg/dL (8.5-10.1); CREATININE 1.2 mg/dL (0.7-1.3); GFR 77.2; POTASSIUM 4.3 mmol/L (3.5-5.1)
[2019-08-09] MEDS: IPRATRPIUM/ALBUTEROL 0.5/2.5MG 3 ML NEBU. NEB SCH ×4 (07:29→19:45)
[2019-08-09] MEDS: INSULIN LISPRO 300 UNITS/3 ML VIAL. SQ SCH ×3 (07:30→17:23)
[2019-08-09 07:51] VITALS: BP 147/95
[2019-08-09] MEDS: CARVEDILOL 3.125 MG TABLET. PO SCH ×2 (09:17→17:19)
[2019-08-09] MEDS: PANTOPRAZOLE 40 MG TABLET.DR. PO SCH (09:18)
[2019-08-09] MEDS: LISINOPRIL 20 MG TABLET PO SCH (09:18)
[2019-08-09] MEDS: SPIRONOLACTONE 25 MG TABLET PO SCH (09:18)
--- NOTE | 2019-08-09 11:00 | PDOC ---
PROGRESS NOTES Subjective Subjective feels tired today,did not sleep well last night. Objective Objective Vital Signs Date Time Temp Pulse Resp B/P (MAP) Pulse Ox O2 Delivery O2 Flow Rate FiO2 08/09/19 09:18 98 147/95 08/09/19 07:51 97.9 20 98 Room Air 97.9 Intake and Output 08/09/19 07:00 Intake Total 1450 ml Output Total 3000 ml Balance -1550 ml Intake Oral 1450 ml Output Urine Total 3000 ml # Voids 2 Physical Exam Abdomen: Soft, Other (ascites) Heart: Regular rate (SR/ST), Normal S1, Normal S2, Other (S3; 4/6 systolic murmur to LLS border) Extremities: No cyanosis, Other (3-4+ bilateral LE pitting edema) General: Alert, Oriented X3, Cooperative, No acute distress HEENT: Atraumatic, Mucous membr. moist/pink, Other (JVD) Lungs: Other (diminished bases) MUSCULOSKELETAL: Osteoarthritic changes both hands Neuro: Normal speech, Sensation intact Psych/Mental Status: Mental status NL, Mood NL Skin: No breakdown, No significant lesion Diagnosis Problem List Problems Medical Problems: (1) Acute exacerbation of CHF (congestive heart failure) Status: Acute (2) Ascites Status: Acute Assessment Assessment 1. Cirrhosis of liver. 2. Ascites. 3. Alcoholism. 4. Hypertension. 5. Severe noncompliance. 6. Acute gout of the right foot. 7. Congestive heart failure, diastolic. 8. Hyperlipidemia. 9. Obesity. 10. Possible obstructive sleep apnea. 11. Possible bilateral avascular necrosis of hip, although the patient does not have any hip pain. PLAN: lost 5 pounds . fluid neg by 3 L labs good. continue current treatment . ? home tomorrow. The Ejection Fraction is 25%. Flattened interventricular septum suggestive of RV pressure/volume overload. Moderate mitral regurgitation. Moderate tricuspid regurgitation with an estimated PAP of 55 mmHg. There is no evidence of significant pericardial effusion. Cirrhosis of liver- start spironolactone Alcoholism- strongly advised to avoid alcohol. Drug abuse- positive for methamphetamine. As with the patient and the family. Strongly advised to avoid drug abuse. Condition And treatment options extensively discussed with the patient and the family. Prognosis of this patient is very poor. Plan Plan of Care Problems Medical Problems: (1) Acute exacerbation of CHF (congestive heart failure) Status: Acute (2) Ascites Status: Acute Comment Review of Relevant I have reviewed the following items sujit (where applicable) has been applied. Labs Laboratory Tests Test 08/08/19 13:00 08/08/19 16:38 08/08/19 20:48 08/09/19 05:20 Urine Collection Type Unknown Urine Color Yellow Urine Clarity Clear Urine pH 5.5 Urine Specific Vanduser 1.010 Urine Protein Negative mg/dL (NEG-TRACE) Urine Glucose (UA) Negative mg/dL (NEG) Urine Ketones (Stick) Negative mg/dL (NEG) Urine Blood Negative (NEG) Urine Nitrite Negative (NEG) Urine Bilirubin Negative (NEG) Urine Urobilinogen Dipstick 1.0 mg/dL (0.2 mg/dL) Urine Leukocyte Esterase Negative (NEG) Urine RBC 0 /HPF (0-2) Urine WBC 0 /HPF (0-4) Urine Squamous Epithelial Cells Occ /LPF Urine Bacteria 0 /HPF (0-FEW) Urine Hyaline Casts Occasional /HPF Urine Mucus Slight /LPF Glucose (Fingerstick) 143 mg/dL (70-99) 176 mg/dL (70-99) Sodium Level 135 mmol/L (136-145) Potassium Level 4.3 mmol/L (3.5-5.1) Chloride Level 99 mmol/L (98-107) Carbon Dioxide Level 29 mmol/L (21-32) Anion Gap 7 (6-14) Blood Urea Nitrogen 22 mg/dL (8-26) Creatinine 1.2 mg/dL (0.7-1.3) Estimated GFR (Cockcroft-Gault) 77.2 Glucose Level 141 mg/dL (70-99) Calcium Level 7.9 mg/dL (8.5-10.1) Test 08/09/19 07:33 Glucose (Fingerstick) 135 mg/dL (70-99) Microbiology 08/06/19 Anaerobic/Aerobic Culture, Resulted Pending 08/06/19 Anaerobic Culture Result 1 (NICOLE), Resulted Pending 08/06/19 Aerobic Culture - Preliminary, Resulted 08/06/19 Aerobic Culture Result 1 (NICOLE) - Preliminary, Resulted 08/06/19 Gram Stain - Final, Resulted 08/06/19 Gram Stain Result 1 (NICOLE) - Final, Resulted 08/06/19 Gram Stain Result 2 (NICOLE) - Final, Resulted Vitals/I & O Vital Sign - Last 24 Hours 08/08/19 08/08/19 08/08/19 08/08/19 11:42 13:06 15:19 17:12 Temp 98.1 98.9 98.1 98.9 Pulse 100 103 103 Resp 18 18 B/P (MAP) 147/88 (107) 130/94 (106) 130/94 Pulse Ox 97 94 99 O2 Delivery Room Air Room Air Room Air 08/08/19 08/08/19 08/08/19 08/08/19 19:57 20:00 20:36 23:34 Temp 98.0 98.1 98.0 98.1 Pulse 96 96 Resp 20 20 B/P (MAP) 136/82 (100) 139/93 (108) Pulse Ox 97 98 O2 Delivery Room Air Room Air Room Air Room Air 08/09/19 08/09/19 08/09/19 08/09/19 03:49 07:29 07:51 09:17 Temp 97.7 97.9 97.7 97.9 Pulse 97 98 98 Resp 16 20 B/P (MAP) 101/79 (86) 147/95 (112) 147/95 Pulse Ox 92 99 98 O2 Delivery Room Air Room Air Room Air 08/09/19 09:18 Pulse 98 B/P (MAP) 147/95 Intake and Output 08/08/19 08/08/19 08/09/19 15:00 23:00 07:00 Intake Total 600 ml 400 ml 450 ml Output Total 1000 ml 1500 ml 500 ml Balance -400 ml -1100 ml -50 ml JENNIFER GONZALEZ MD Aug 09, 2019 11:00
[2019-08-09 11:28] VITALS: BP 110/84
[2019-08-09] MEDS: FUROSEMIDE 40 MG/4 ML VIAL. IVP SCH ×2 (11:50→14:58)
[2019-08-09 14:38] VITALS: BP 137/93
[2019-08-09 19:20] VITALS: BP 134/95
[2019-08-09 23:15] VITALS: BP 124/93
[2019-08-10 03:30] VITALS: BP 108/71
[2019-08-10] MEDS: PANTOPRAZOLE 40 MG TABLET.DR. PO SCH (05:31)
[2019-08-10 07:00] VITALS: BP 125/74
[2019-08-10] MEDS: IPRATRPIUM/ALBUTEROL 0.5/2.5MG 3 ML NEBU. NEB SCH ×2 (07:29→11:31)
[2019-08-10] MEDS: INSULIN LISPRO 300 UNITS/3 ML VIAL. SQ SCH ×2 (07:30→12:54)
[2019-08-10] MEDS: SPIRONOLACTONE 25 MG TABLET PO SCH (07:51)
[2019-08-10] MEDS: CARVEDILOL 3.125 MG TABLET. PO SCH (07:52)
[2019-08-10] MEDS: FUROSEMIDE 40 MG/4 ML VIAL. IVP SCH ×2 (07:52→13:24)
[2019-08-10] MEDS: LISINOPRIL 20 MG TABLET PO SCH (07:52)
--- NOTE | 2019-08-10 10:49 | PDOC ---
PROGRESS NOTES Subjective Subjective feels better , ready to go home Objective Objective Vital Signs Date Time Temp Pulse Resp B/P (MAP) Pulse Ox O2 Delivery O2 Flow Rate FiO2 08/10/19 07:52 99 125/77 08/10/19 07:30 Room Air 08/10/19 07:00 98.5 18 100 98.5 Intake and Output 08/10/19 07:00 Intake Total 1750 ml Output Total 2050 ml Balance -300 ml Intake Oral 1750 ml Output Urine Total 2050 ml Physical Exam Abdomen: Soft, Other (ascites) Heart: Regular rate (SR/ST), Normal S1, Normal S2, Other (S3; 4/6 systolic murmur to LLS border) Extremities: No cyanosis, Other (3-4+ bilateral LE pitting edema) General: Alert, Oriented X3, Cooperative, No acute distress HEENT: Atraumatic, Mucous membr. moist/pink, Other (JVD) Lungs: Other (diminished bases) MUSCULOSKELETAL: Osteoarthritic changes both hands Neuro: Normal speech, Sensation intact Psych/Mental Status: Mental status NL, Mood NL Skin: No breakdown, No significant lesion Diagnosis Problem List Problems Medical Problems: (1) Acute exacerbation of CHF (congestive heart failure) Status: Acute (2) Ascites Status: Acute Assessment Assessment 1. Cirrhosis of liver. 2. Ascites. 3. Alcoholism. 4. Hypertension. 5. Severe noncompliance. 6. Acute gout of the right foot. 7. Congestive heart failure, diastolic. 8. Hyperlipidemia. 9. Obesity. 10. Possible obstructive sleep apnea. 11. Possible bilateral avascular necrosis of hip, although the patient does not have any hip pain. PLAN: d/c home today. same weight as yesterday . fluid neg by 2 L labs good. continue current treatment . The Ejection Fraction is 25%. Moderate mitral regurgitation. Cirrhosis of liver- start spironolactone Alcoholism- strongly advised to avoid alcohol. Drug abuse- positive for methamphetamine. Prognosis of this patient is very poor. Plan Plan of Care Problems Medical Problems: (1) Acute exacerbation of CHF (congestive heart failure) Status: Acute (2) Ascites Status: Acute Comment Review of Relevant I have reviewed the following items sujit (where applicable) has been applied. Labs Laboratory Tests Test 08/09/19 10:51 08/09/19 16:47 08/09/19 19:23 08/10/19 07:45 Glucose (Fingerstick) 143 mg/dL (70-99) 153 mg/dL (70-99) 134 mg/dL (70-99) 150 mg/dL (70-99) Microbiology 08/06/19 Anaerobic/Aerobic Culture, Resulted Pending 08/06/19 Anaerobic Culture Result 1 (NICOLE), Resulted Pending 08/06/19 Aerobic Culture - Final, Resulted 08/06/19 Aerobic Culture Result 1 (NICOLE) - Final, Resulted 08/06/19 Gram Stain - Final, Resulted 08/06/19 Gram Stain Result 1 (NICOLE) - Final, Resulted 08/06/19 Gram Stain Result 2 (NICOLE) - Final, Resulted Vitals/I & O Vital Sign - Last 24 Hours 08/09/19 08/09/19 08/09/19 08/09/19 11:28 11:36 14:38 16:29 Temp 97.9 98.9 97.9 98.9 Pulse 98 98 Resp 16 18 B/P (MAP) 110/84 (93) 137/93 (108) Pulse Ox 92 97 96 97 O2 Delivery Room Air Room Air Room Air Room Air 08/09/19 08/09/19 08/09/19 08/09/19 17:19 19:20 19:45 20:00 Temp 97.8 97.8 Pulse 98 54 Resp 18 B/P (MAP) 137/93 134/95 (108) Pulse Ox 99 O2 Delivery Room Air Room Air Room Air 08/09/19 08/10/19 08/10/19 08/10/19 23:15 03:30 07:00 07:30 Temp 98.0 98.5 98.5 98.0 98.5 98.5 Pulse 98 97 98 Resp 20 18 18 B/P (MAP) 124/93 (103) 108/71 (83) 125/74 (91) Pulse Ox 95 98 100 O2 Delivery Room Air Room Air Room Air Room Air 08/10/19 08/10/19 07:52 07:52 Pulse 99 99 B/P (MAP) 125/77 125/77 Intake and Output 08/09/19 08/09/19 08/10/19 15:00 23:00 07:00 Intake Total 800 ml 200 ml 750 ml Output Total 1000 ml 1050 ml Balance -200 ml -850 ml 750 ml JENNIFER GONZALEZ MD Aug 10, 2019 10:49
[2019-08-10 11:00] VITALS: BP 131/80
--- NOTE | 2019-08-10 13:55 | NUR ---
Discharge instructions given to patient regarding medications, diet, and follow up appointments. Education given over CHF and ascites. Discharge paperwork and scripts given to pt. Patient verbalizes understanding and will follow up with Dr. Vo.
[2019-08-10 14:45] VITALS: BP 154/68
--- NOTE | 2019-08-11 08:55 | PDOC3 ---
IM DISCHARGE SUMMARY Date of Admission Date of Admission Date of Admission: Aug 05, 2019 at 17:51 Date of Discharge Date of Discharge August 10, 2019 Primary Diagnosis Primary Diagnosis 1. Cirrhosis of liver. 2. Ascites. 3. Alcoholism. 4. Hypertension. 5. Severe noncompliance. 6. Acute gout of the right foot. 7. Congestive heart failure, diastolic. 8. Hyperlipidemia. 9. Obesity. 10. Possible obstructive sleep apnea. 11. Possible bilateral avascular necrosis of hip, although the patient does not have any hip pain. Consults Consults Tim Butler MD; Fredrick Collier MD; Berny Hinkle MD; Gustabo Casanova MD Labs Labs Laboratory Tests Test 08/10/19 11:09 Glucose (Fingerstick) 169 mg/dL (70-99) H Brief hospital course Brief hospital course This 49-year-old -[place] male, known to me from previous visits in the office about 2 years ago, has a history of alcoholism and was recently admitted to this institution a few weeks ago. At that time, he was admitted for alcoholism and ascites. He was restarted on his home medications including Lasix and spironolactone. He had paracentesis and 700 mL of fluid was removed. However, after the discharge, the patient did not come to the office for any appointments as well as did not fill his medications. He states that he had lost his backpack and could not afford to buy more medications, but that was long before his last admission. He started becoming more short of breath and also had a flare-up of gout in his right foot. Because of the dyspnea, abdominal distention and right foot pain, the patient came to the Emergency Room. In the Emergency Room, the patient was evaluated and admitted for further evaluation and management. For more details regarding the past history, family history, social history, surgical history and other details, please refer to History and Physical. PLAN: The patient has risk factors for osteonecrosis due to alcoholism. We will give him another 5 mg of prednisone today and tomorrow for the acute gout. Monitor blood sugars. He may have diabetes. Order hemoglobin A1c, sliding scale insulin, fingersticks. Consult Dr. Casanova for GI evaluation and management. The patient had paracentesis with 1400 mL fluid removed. The patient is strongly advised to avoid alcohol and take his medications regularly. Medications have been restarted. Consult Dr. Collier for pulmonary evaluation and management. Order echocardiogram and hemoglobin A1c. For details, please refer to the orders. Prognosis of this patient is very poor due to his multiple medical problems. He has been taking aspirin, but I will discontinue it because of his high risk of bleeding with cirrhosis of liver. Hyperglycemia- follow-up hemoglobin A1c. Continue sliding scale insulin. Blood sugars are improving. Discontinue prednisone given for gout. Acute gout- improving. Discontinue prednisone after today's dose. Congestive heart failure- both diastolic and systolic. Systolic function is much worse with ejection fraction of 20-25%. Discussed with Dr. Cadena. Patient will need cardiac catheterization. He will discuss with the patient. Continue Lasix. I will add the low dose lisinopril and Coreg, because of low blood pressure monitor closely. Blood pressure is better today. Dr. Cadena has started him on IV Lasix twice daily until tomorrow and if stable discharge tomorrow on Lasix 80 mg daily. As per cardiology, not a candidate for cardiac cath at this time. Continue aggressive echo care but his prognosis is very poor due to his alcohol and drug abuse and severe noncompliance. Advised low-sodium diet, ADA diet. Fluid restriction. Echocardiogram The left ventricular systolic function is severely impaired. The Ejection Fraction is 25%. Flattened interventricular septum suggestive of RV pressure/volume overload. Moderate mitral regurgitation. Moderate tricuspid regurgitation with an estimated PAP of 55 mmHg. There is no evidence of significant pericardial effusion. Cirrhosis of liver- start spironolactone Alcoholism- strongly advised to avoid alcohol. Drug abuse- positive for methamphetamine. As with the patient and the family. Strongly advised to avoid drug abuse. Condition And treatment options extensively discussed with the patient and the family. IV other medications and paracentesis but his long-term and short-term prognosis remains very poor due to his multiple medical problems and noncompliance and drug and alcohol abuse. This patient remains stable patient will be discharged home. Patient will also need to follow with the [facility] as outpatient as he may need a cardiac catheter later depending on his condition.However he'll not be a good candidate for any anticoagulation Prognosis of this patient is very poor. Medications Medications reviewed and reconciled for discharge. Allergy Allergies Coded Allergies Type Severity Reaction Last Updated Verified No Known Drug Allergies 07/05/15 No Follow up in 5 days. DISPOSITION: Home Comments Discharge Management - 35 minutes. For other details please refer to discharge instructions JOHNNY LUNA MD Aug 11, 2019 08:55
== END 2019-08-10 14:25 | disposition home or self-care (01) | DRG 432 ==
LOC: ER 14:35 → 6 SOUTH 17:51
PROVIDERS: ADMIT Internal Medicine; ATTEND Internal Medicine
PROC: 0W9G3ZZ Drainage of Peritoneal Cavity, Percutaneous Approach (ICD-10-PCS; principal; 2019-08-06)
DX: K70.31 Alcoholic cirrhosis of liver with ascites (principal); I50.43 Acute on chronic combined systolic (congestive) and diastolic (congestive) heart failure; I11.0 Hypertensive heart disease with heart failure; E11.9 Type 2 diabetes mellitus without complications; E66.9 Obesity, unspecified; E78.5 Hyperlipidemia, unspecified; F10.20 Alcohol dependence, uncomplicated; F15.90 Other stimulant use, unspecified, uncomplicated; I27.81 Cor pulmonale (chronic); G89.29 Other chronic pain; I50.82 Biventricular heart failure; J30.9 Allergic rhinitis, unspecified; J40 Bronchitis, not specified as acute or chronic; M19.90 Unspecified osteoarthritis, unspecified site; K59.00 Constipation, unspecified; M10.9 Gout, unspecified; Z68.34 Body mass index [BMI] 34.0-34.9, adult; Z82.49 Family history of ischemic heart disease and other diseases of the circulatory system; Z91.19 Patient's noncompliance with other medical treatment and regimen
CPT/HCPCS: 36415; 49083; 71046; 74177; 80048; 80053; 80061; 80307; 81001; 82962; 83036; 83615; 83690; 83735; 83880; 84145; 84157; 84443; 84484; 84550; 85025; 85027; 85610; 85730; 86705; 86709; 86803; 87071; 87075; 87340; 88112; 88305; 89050; 93005; 93306; 94640; 94760; 96374; J1815; J1940; J3010; J7512; J7620; Q9967; 99285-25; G0378

== ENCOUNTER 2019-09-12 05:17 | Emergency (ER) | payer SELFPAY ==
[~2019-09-12] VITALS: Ht 177.8 cm; Wt 113.4 kg
[~2019-09-12 05:17] MED LIST changes: +CARV3.1210 PO; +FURO40TA4 PO; +FURO80TA3 PO; +LISI-338 PO; +LISI10TA2 PO; +PANT40TA77 PO; +SPIR25TA PO
[2019-09-12 05:24] VITALS: BP 132/99
[2019-09-12] MEDS ORDERED: PRED20TA PO (06:26)
--- NOTE | 2019-09-12 06:27 | PHYS DOC ---
Past Medical History Past Medical History: Bronchitis, CHF, Hypertension, Hepatitis, Liver Disease, Other Additional Past Medical Histor: ACITIES,JAUNDICE, Past Surgical History: Other Additional Past Surgical Histo: HERNIA,PARACENTESIS, Smokin Pack Per Day Alcohol Use: Heavy Drug Use: None Adult General Chief Complaint Chief Complaint: SKIN PROBLEM HPI HPI Patient is a 69-year-old male with past medical history of congestive heart failure, liver disease, hypertension, and hepatitis is presenting to the emergency department with a one-day history of an itchy rash. He states that he was over at his friend's house drinking last night and he developed itchy rash. Patient states that he took Benadryl and tried calamine lotion on the rash for the itching to no relief and decided to come in to have it evaluated. Patient saw an advertisment for shingles and was worried that was the problem. Patient states that this is never happened before. Patient denies fever, chills, nausea, vomiting, abdominal pain, constipation, diarrhea, chest pain, and shortness of breath. Review of Systems Review of Systems Constitutional: Denies fever or chills Eyes: Denies redness or eye pain HENT: Denies nasal congestion or sore throat Respiratory: Denies cough or shortness of breath Cardiovascular: Denies chest pain or palpitations GI: Denies abdominal pain, nausea, or vomiting : Denies dysuria or hematuria Musculoskeletal: Denies back pain or joint pain Integument: Reports rash and skin lesions Neurologic: Denies headache, focal weakness or sensory changes Complete systems were reviewed and found to be within normal limits, except as documented in this note. Current Medications Current Medications Current Medications Medications (Trade) Dose Ordered Sig/[facility] Start Time Stop Time Status Last Admin Dose Admin Prednisone (Prednisone) 10 mg 1X ONCE 09/12/19 07:00 09/12/19 07:01 Allergies Allergies Allergies Coded Allergies Type Severity Reaction Last Updated Verified No Known Drug Allergies 07/05/15 No Physical Exam Physical Exam Constitutional: Well developed, well nourished, no acute distress, non-toxic appearance HENT: Normocephalic, atraumatic, oropharynx moist Eyes: Conjunctiva normal, no discharge Neck: Normal range of motion, no tenderness, supple Cardiovascular: Heart rate normal, regular rhythm Lungs & Thorax: Bilateral breath sounds clear to auscultation, no wheezing Abdomen: Soft, no tenderness Skin: Warm, dry, no erythema, no rash Back: No tenderness, no CVA tenderness Extremities: No tenderness, ROM intact, no edema Neurologic: Alert and oriented X 3, no focal deficits noted Psychologic: Affect normal, judgement normal, mood normal Current Patient Data Vital Signs Vital Signs Date Time Temp Pulse Resp B/P (MAP) Pulse Ox O2 Delivery O2 Flow Rate FiO2 09/12/19 05:24 97.4 105 18 132/99 (110) 99 Room Air 97.4 EKG EKG [] Radiology/Procedures Radiology/Procedures [] Course & Med Decision Making Course & Med Decision Making Patient is a 49-year-old male with a past medical history of hypertension, liver disease, ascites, congestive heart failure that is presenting to the emergency department with a one-day history of rash. Patient was seen and evaluated at bedside. Physical exam was significant for well-healing diffuse rash that appeared to be maculopapular in nature. Patient will be given steroid for symptomatic relief. Patient be discharged home with steroids and referral. Patient stable for discharge with outpatient follow-up with PCP. Discussed findings and plan with patient, who acknowledges understanding and agreement. Dragon Disclaimer Dragon Disclaimer This electronic medical record was generated, in whole or in part, using a voice recognition dictation system. Departure Departure Impression: Primary Impression: Rash Disposition: 01 HOME, SELF-CARE Condition: STABLE Referrals: JOHNNY LUNA MD (PCP) Patient Instructions: Rash, [id number] Scripts Prednisone (PREDNISONE) 20 Mg Tablet 2 TAB PO DAILY PRN for Itching for 4 Days, #8 TAB 0 Refills Prov: JEOVANNY MCGINNIS DO 09/12/19 JEOVANNY MCGINNIS DO Sep 12, 2019 06:27
[2019-09-12] MEDS ORDERED: predniSONE 10 MG TABLET PO ONE (07:00)
== END 2019-09-12 06:40 | disposition home or self-care (01) ==
LOC: ER 05:17
DX: R21 Rash and other nonspecific skin eruption (principal); L29.9 Pruritus, unspecified; I50.9 Heart failure, unspecified; F17.200 Nicotine dependence, unspecified, uncomplicated; F10.10 Alcohol abuse, uncomplicated; I10 Essential (primary) hypertension; Z98.890 Other specified postprocedural states
CPT/HCPCS: 99283; J7512

== ENCOUNTER 2019-10-01 15:38 | Emergency (ER) | payer SELFPAY ==
[~2019-10-01] VITALS: Ht 180.3 cm; Wt 104.0 kg
[~2019-10-01 15:38] MED LIST changes: +PRED20TA PO
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
[2019-10-01] MEDS ORDERED: IV NORMAL SALINE 1000ML BAG 1,000 ML IV ONE (16:30)
[2019-10-01 17:11] LABS: BASO # 0.1 x10^3/uL (0.0-0.2); BASO % 1 % (0-3); EOS # 0.2 x10^3/uL (0.0-0.7); EOS % 4 % (0-3); HEMATOCRIT 43.9 % (39.0-53.0); HEMOGLOBIN 13.9 g/dL (13.0-17.5); LYMPH # 1.2 x10^3/uL (1.0-4.8); LYMPH % 21 % (24-48); MEAN CORPUSCULAR HEMOGLOBIN 27 pg (25-35); MEAN CORPUSCULAR HGB CONC 32 g/dL (31-37); MEAN CORPUSCULAR VOLUME 86 fL (79-100); MONO # 0.9 x10^3/uL (0.0-1.1); MONO % 15 % (0-9); NEUT # 3.4 x10^3/uL (1.8-7.7); NEUT % 60 % (31-73); PLATELET COUNT 183 x10^3/uL (140-400); RED CELL DISTRIBUTION WIDTH 17.6 % (11.5-14.5); WHITE BLOOD COUNT 5.8 x10^3/uL (4.0-11.0)
[2019-10-01 17:13] LABS: BILIRUBIN,URINE NEGATIVE (NEG); CLARITY,URINE CLEAR; COLOR,URINE YELLOW; NITRITE,URINE NEGATIVE (NEG); PH,URINE 5.5; PROTEIN,URINE NEGATIVE (NEG-TRACE)
[2019-10-01] MEDS ORDERED: hydrOXYzine IM 50 MG/ML VIAL IM ONE (17:15)
[2019-10-01 17:21] LABS: HYALINE CASTS, URINE FEW /HPF; SQUAMOUS EPITHELIAL CELL,UR FEW /LPF
[2019-10-01 17:22] LABS: BACTERIA,URINE 0 /HPF (0-FEW); BARBITURATES NEG (NEG); BENZODIAZEPINES NEG (NEG); CANNABINOIDS NEG (NEG); COCAINE NEG (NEG); METHADONE NEG (NEG); OPIATES NEG (NEG); PHENCYCLIDINE NEG (NEG); RBC,URINE OCC /HPF (0-2); WBC,URINE OCC /HPF (0-4)
[2019-10-01 17:23] LABS: PROTHROMBIN TIME PATIENT 16.4 SEC (11.7-14.0)
[2019-10-01 17:26] LABS: AMPHETAMINE/METHAMPHETAMINE POS (NEG)
[2019-10-01 17:35] LABS: CALCIUM 8.2 mg/dL (8.5-10.1); GFR 95.3
[2019-10-01 17:40] LABS: ALBUMIN 2.9 g/dL (3.4-5.0); ALBUMIN/GLOBULIN RATIO 0.7 (1.0-1.7); MAGNESIUM 1.8 mg/dL (1.8-2.4); TOTAL PROTEIN 6.8 g/dL (6.4-8.2)
--- NOTE | 2019-10-01 17:41 | RAD ---
Exam: Ultrasound abdomen limited Indication: Abdominal bloating Technique: Real-time grayscale and color Doppler images of the right upper quadrant were obtained by the department electrical integrator. Comparisons: 09/01/2019 FINDINGS: Liver has a homogenous echotexture. Hepatopedal flow is noted within the portal vein. Right kidney measures 13.5 cm in length. No hydronephrosis. Gallbladder is not distended. No gallstones are identified. There is a moderate amount of free fluid noted within the upper abdomen with a small amount of pericholecystic fluid. Pancreas is not well seen. Visualized portions of the aorta and IVC are unremarkable. IMPRESSION: 1. Gallbladder is nondistended and there are are no gallstones identified. While there is some pericholecystic fluid, in the setting of moderate intra-abdominal ascites versus favored to be related to a systemic process rather than evidence of acute cholecystitis. 2. Normal sonographic appearance of the liver. 3. No right-sided hydronephrosis. Electronically signed by: Cheo Eaton MD (10/01/2019 5:38 PM) [facility]
[2019-10-01 18:50] VITALS: BP 134/108
--- NOTE | 2019-10-02 06:50 | EKG ---
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
== END 2019-10-01 18:55 | disposition home or self-care (01) ==
LOC: ER 15:38
DX: F15.90 Other stimulant use, unspecified, uncomplicated (principal); R55 Syncope and collapse; R53.83 Other fatigue; R05 Cough; I25.10 Atherosclerotic heart disease of native coronary artery without angina pectoris; I50.9 Heart failure, unspecified; I10 Essential (primary) hypertension; F10.10 Alcohol abuse, uncomplicated; Z98.890 Other specified postprocedural states
CPT/HCPCS: 36415; 76705; 80053; 80307; 81001; 82140; 82553; 83690; 83735; 84484; 85025; 85610; 85730; 93005; 96360; 96372; 99285; G0480; J3410; J7030

== ENCOUNTER 2019-11-12 22:09 | Emergency (ER) | payer SELFPAY ==
[~2019-11-12] VITALS: Ht 180.3 cm; Wt 95.5 kg
[~2019-11-12 22:09] MED LIST changes: +ALBU2.5V8 NEB; +CALA177L13 TP; +DIPH25CA58 PO; +Folic Acid PO; +HYDR453. TP; +KETO10TA PO; +METO2.5T PO; +MULT1TAB90 PO; +PRED50TA PO; +THIA100T22 PO
--- NOTE | 2019-11-12 22:21 | PHYS DOC ---
Past Medical History Past Medical History: Bronchitis, CAD, CHF, Hypertension, Hepatitis, Liver Disease, Other Additional Past Medical Histor: ACITIES,JAUNDICE Past Surgical History: Other Additional Past Surgical Histo: umbilical HERNIA,PARACENTESIS, Smoking Status: Never Smoker Alcohol Use: Heavy Drug Use: None Adult General Chief Complaint Chief Complaint: CHEST PAIN HPI HPI Patient is a pleasant 49-year-old recommended a past medical history significant for congestive heart failure with an ejection fraction of 15-20%, liver disease secondary to alcohol abuse history, elevated troponin. The patient is brought to the ER secondary to intermittent chest pain throughout the day that is worse with coughing and laughing and exertion. Patient was recently admitted to the hospital on November 06 through October for cardiology was counseled in life vest was introduced to the patient. Patient was ultimately discharged. He reports that he has been taking his medication as prescribed. His pain is currently 4/10, located on the left side of his chest and described as a deep ache. He has no shortness of breath currently. Review of Systems Review of Systems All other ROS is negative unless otherwise stated in HPI Current Medications Current Medications Current Medications Medications (Trade) Dose Ordered Sig/[employer] Start Time Stop Time Status Last Admin Dose Admin Diphenhydramine HCl (Benadryl) 25 mg 1X ONCE 11/12/19 23:45 11/12/19 23:46 DC 11/12/19 23:49 25 MG Allergies Allergies Allergies Coded Allergies Type Severity Reaction Last Updated Verified No Known Drug Allergies 07/05/15 No Physical Exam Physical Exam See above Constitutional: Well developed, well nourished, no acute distress, non-toxic appearance. [] HENT: Normocephalic, atraumatic, bilateral external ears normal, oropharynx moist, no oral exudates, nose normal. [] Eyes: PERRLA, EOMI, conjunctiva normal, no discharge. [] Neck: Normal range of motion, no tenderness, supple, no stridor. [] Cardiovascular:Heart rate regular rhythm, no murmur [] Lungs & Thorax: Bilateral breath sounds clear to auscultation [] Abdomen: Bowel sounds normal, soft, no tenderness, no masses, no pulsatile masses. Abdominal distention with some ascites present Skin: Warm, dry, no erythema, no rash. [] Back: No tenderness, no CVA tenderness. [] Extremities: No tenderness, no cyanosis, no clubbing, ROM intact, 1+ bilateral lower extremity edema Neurologic: Alert and oriented X 3, normal motor function, normal sensory function, no focal deficits noted. [] Psychologic: Affect normal, judgement normal, mood normal. [] Current Patient Data Vital Signs Vital Signs Date Time Temp Pulse Resp B/P (MAP) Pulse Ox O2 Delivery O2 Flow Rate FiO2 11/12/19 22:15 98.2 120 22 131/87 (102) 97 Room Air 98.2 Lab Values Laboratory Tests Test 11/12/19 22:30 White Blood Count 6.9 x10^3/uL (4.0-11.0) Red Blood Count 4.82 x10^6/uL (4.30-5.70) Hemoglobin 13.1 g/dL (13.0-17.5) Hematocrit 40.6 % (39.0-53.0) Mean Corpuscular Volume 84 fL (79-100) Mean Corpuscular Hemoglobin 27 pg (25-35) Mean Corpuscular Hemoglobin Concent 32 g/dL (31-37) Red Cell Distribution Width 19.4 % (11.5-14.5) H Platelet Count 209 x10^3/uL (140-400) Neutrophils (%) (Auto) 71 % (31-73) Lymphocytes (%) (Auto) 16 % (24-48) L Monocytes (%) (Auto) 9 % (0-9) Eosinophils (%) (Auto) 3 % (0-3) Basophils (%) (Auto) 1 % (0-3) Neutrophils # (Auto) 4.9 x10^3/uL (1.8-7.7) Lymphocytes # (Auto) 1.1 x10^3/uL (1.0-4.8) Monocytes # (Auto) 0.6 x10^3/uL (0.0-1.1) Eosinophils # (Auto) 0.2 x10^3/uL (0.0-0.7) Basophils # (Auto) 0.1 x10^3/uL (0.0-0.2) Prothrombin Time 15.4 SEC (11.7-14.0) H Prothrombin Time INR 1.3 (0.8-1.1) H Activated Partial Thromboplast Time 28 SEC (24-38) Sodium Level 137 mmol/L (136-145) Potassium Level 4.7 mmol/L (3.5-5.1) Chloride Level 102 mmol/L (98-107) Carbon Dioxide Level 25 mmol/L (21-32) Anion Gap 10 (6-14) Blood Urea Nitrogen 16 mg/dL (8-26) Creatinine 0.8 mg/dL (0.7-1.3) Estimated GFR (Cockcroft-Gault) 123.3 BUN/Creatinine Ratio 20 (6-20) Glucose Level 97 mg/dL (70-99) Calcium Level 8.5 mg/dL (8.5-10.1) Magnesium Level 1.6 mg/dL (1.8-2.4) L Total Bilirubin 0.8 mg/dL (0.2-1.0) Aspartate Amino Transferase (AST) 20 U/L (15-37) Alanine Aminotransferase (ALT) 20 U/L (16-63) Alkaline Phosphatase 113 U/L (46-116) Ammonia 37 mcmol/L (11-34) H Creatine Kinase 38 U/L (39-308) L Creatine Kinase MB (Mass) 0.9 ng/mL (0.0-3.6) Creatine Kinase MB Relative Index % (0-4) Troponin I Quantitative < 0.017 ng/mL (0.000-0.055) TS-Qoe-S-Type Natriuretic Peptide 1382 pg/mL (0-124) H Total Protein 6.5 g/dL (6.4-8.2) Albumin 2.9 g/dL (3.4-5.0) L Albumin/Globulin Ratio 0.8 (1.0-1.7) L Lipase 322 U/L (73-393) Ethyl Alcohol Level < 10 mg/dL (0-10) Laboratory Tests 11/12/19 22:30 Laboratory Tests 11/12/19 22:30 EKG EKG KG shows sinus tachycardia with a rate of 117 similar to previous EKG. Radiology/Procedures Radiology/Procedures CHEST PA LATERAL History: Chest pain Comparison: November 06, 2019 Findings: Left midlung linear atelectasis or scarring. No consolidation or pleural effusion. Mild cardiomegaly, unchanged. No pneumothorax. Impression: 1. No acute cardiopulmonary process.[] Course & Med Decision Making Course & Med Decision Making Pertinent Labs and Imaging studies reviewed. (See chart for details) 2221: Patient seen for intermittent chest pain Sunday. He has severe congestive heart failure. We'll initiate cardiac workup. He has received aspirin in the ambulance prior to arrival. 2355: Patient's workup is complete and he does have some elevation in his BNP. He now tells me he has been out of his Coreg and lisinopril for the past week. His magnesium is slightly low as well. We'll give him 40 mg of IV Lasix as he takes 40 mg orally twice daily and he does appear to be slightly fluid overloaded. We will give home oral BP meds. We will also provide a prescription for magnesium. Dragon Disclaimer Dragon Disclaimer This electronic medical record was generated, in whole or in part, using a voice recognition dictation system. Departure Departure Impression: Primary Impression: Acute exacerbation of CHF (congestive heart failure) Additional Impressions: Hypomagnesemia Atypical chest pain Disposition: HOME, SELF-CARE Condition: IMPROVED Referrals: JOHNNY LUNA MD (PCP) Please follow up next week for reevaluation. Patient Instructions: Hypomagnesemia Additional Instructions: Please take your medications as prescribed Scripts Magnesium Oxide (MAGNESIUM OXIDE) 400 Mg Tablet 1 TAB PO BID for 3 Days, #6 TAB 0 Refills Prov: BILLIE ALTMAN DO 11/13/19 Problem Qualifiers BILLIE ALTMAN DO Nov 12, 2019 22:21
[2019-11-12 22:40] LABS: BASO # 0.1 x10^3/uL (0.0-0.2); BASO % 1 % (0-3); EOS # 0.2 x10^3/uL (0.0-0.7); EOS % 3 % (0-3); HEMATOCRIT 40.6 % (39.0-53.0); HEMOGLOBIN 13.1 g/dL (13.0-17.5); LYMPH # 1.1 x10^3/uL (1.0-4.8); LYMPH % 16 % (24-48); MEAN CORPUSCULAR HEMOGLOBIN 27 pg (25-35); MEAN CORPUSCULAR HGB CONC 32 g/dL (31-37); MEAN CORPUSCULAR VOLUME 84 fL (79-100); MONO # 0.6 x10^3/uL (0.0-1.1); MONO % 9 % (0-9); NEUT # 4.9 x10^3/uL (1.8-7.7); NEUT % 71 % (31-73); PLATELET COUNT 209 x10^3/uL (140-400); RED BLOOD COUNT 4.82 x10^6/uL (4.30-5.70); RED CELL DISTRIBUTION WIDTH 19.4 % (11.5-14.5); WHITE BLOOD COUNT 6.9 x10^3/uL (4.0-11.0)
[2019-11-12 22:47] LABS: PROTHROMBIN TIME PATIENT 15.4 SEC (11.7-14.0)
[2019-11-12 22:54] LABS: CALCIUM 8.5 mg/dL (8.5-10.1); CREATININE 0.8 mg/dL (0.7-1.3); GFR 123.3; POTASSIUM 4.7 mmol/L (3.5-5.1)
[2019-11-12 22:59] LABS: ALBUMIN 2.9 g/dL (3.4-5.0); ALBUMIN/GLOBULIN RATIO 0.8 (1.0-1.7); MAGNESIUM 1.6 mg/dL (1.8-2.4); TOTAL BILIRUBIN 0.8 mg/dL (0.2-1.0); TOTAL PROTEIN 6.5 g/dL (6.4-8.2)
[2019-11-12 23:07] LABS: CREATINE KINASE 38 U/L (39-308)
--- NOTE | 2019-11-12 23:13 | RAD ---
CHEST PA LATERAL History: Chest pain Comparison: November 06, 2019 Findings: Left midlung linear atelectasis or scarring. No consolidation or pleural effusion. Mild cardiomegaly, unchanged. No pneumothorax. Impression: 1. No acute cardiopulmonary process. Electronically signed by: Kevin Odom DO (11/12/2019 11:10 PM) [id number]
[2019-11-12] MEDS ORDERED: diphenhydrAMINE HCL 25 MG CAPSULE PO ONE (23:45)
[2019-11-13] MEDS ORDERED: FUROSEMIDE 40 MG/4 ML VIAL. IVP ONE
[2019-11-13] MEDS ORDERED: LISINOPRIL 10 MG TABLET PO ONE
[2019-11-13] MEDS ORDERED: MAGN400T5 PO
[2019-11-13] MEDS ORDERED: CARVEDILOL 3.125 MG TABLET. PO ONE (00:15)
[2019-11-13] MEDS ORDERED: CARVEDILOL 3.125 MG TABLET. PO SCH (00:15)
[2019-11-13 00:55] VITALS: BP 113/76
--- NOTE | 2019-11-13 02:59 | EKG ---
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
== END 2019-11-13 01:07 | disposition home or self-care (01) ==
LOC: ER 22:09
DX: I11.0 Hypertensive heart disease with heart failure (principal); I50.9 Heart failure, unspecified; E83.42 Hypomagnesemia; R07.89 Other chest pain; I25.10 Atherosclerotic heart disease of native coronary artery without angina pectoris; F10.10 Alcohol abuse, uncomplicated; Z98.890 Other specified postprocedural states
CPT/HCPCS: 36415; 71046; 80053; 82140; 82553; 83690; 83735; 83880; 84484; 85025; 85610; 85730; 93005; 96374; 99285; G0480; J1940; Q0163

== ENCOUNTER 2019-12-01 02:27 | Emergency (ER) | payer SELFPAY ==
[~2019-12-01] VITALS: Ht 180.3 cm; Wt 104.1 kg
[~2019-12-01 02:27] MED LIST changes: +MAGN400T5 PO
--- NOTE | 2019-12-01 02:55 | PHYS DOC ---
Past Medical History Past Medical History: Bronchitis, CAD, CHF, Hypertension, Hepatitis, Liver Disease, Other Additional Past Medical Histor: ACITIES,JAUNDICE Past Surgical History: Other Additional Past Surgical Histo: umbilical HERNIA,PARACENTESIS, Smoking Status: Never Smoker Alcohol Use: Heavy Drug Use: None Adult General Chief Complaint Chief Complaint: SHORTNESS OF BREATH HPI HPI 49-year-old male with history of hypertension, CHF presents to the emergency department complaints of not feeling well x1 week. Patient describes cough, nausea, chills, difficulty catching his breath. Patient has not seen his primary care physician because he does not have insurance. He is not use any iytr-ewl-[id number] medications. Nothing makes his symptoms worse, nothing makes his symptoms better. He did not get his influenza swab. Patient denies any he adache or visual change, chest pain, abdominal pain. Review of Systems Review of Systems Constitutional: possible fever Respiratory: cough, [employer] - SOB Cardiovascular: No additional information not addressed in HPI [] GI: Denies abdominal pain, + nausea, no vomiting, bloody stools or diarrhea [] Musculoskeletal: Denies back pain or joint pain [] Neurologic: Denies headache, focal weakness or sensory changes [] All other systems were reviewed and found to be within normal limits, except as documented in this note. Current Medications Current Medications Current Medications Medications (Trade) Dose Ordered Sig/Porsche Start Time Stop Time Status Last Admin Dose Admin Albuterol/ Ipratropium (Duoneb) 3 ml 1X ONCE 12/01/19 03:00 12/01/19 03:01 DC 12/01/19 03:00 3 ML Allergies Allergies Allergies Coded Allergies Type Severity Reaction Last Updated Verified No Known Drug Allergies 07/05/15 No Physical Exam Physical Exam Constitutional: Well developed, well nourished, no acute distress, non-toxic appearance. [] HENT: Normocephalic, atraumatic, bilateral external ears normal, oropharynx moist, no oral exudates, nose normal. [] Eyes: PERRLA, EOMI, conjunctiva normal, no discharge. [] Cardiovascular:Heart rate regular rhythm, no murmur [] Lungs & Thorax: decreased BS Abdomen: Bowel sounds normal, soft, no tenderness, no masses, no pulsatile masses. [] Skin: Warm, dry, no erythema, no rash. [] Back: No tenderness, no CVA tenderness. [] Extremities: No tenderness, no edema. [] Neurologic: Alert and oriented X 3, no focal deficits noted. [] Psychologic: Affect normal, judgement normal, mood normal. [] Current Patient Data Vital Signs Vital Signs Date Time Temp Pulse Resp B/P (MAP) Pulse Ox O2 Delivery O2 Flow Rate FiO2 12/01/19 03:03 99 Room Air 12/01/19 02:50 98.0 104 16 131/87 (102) 98.0 Lab Values Laboratory Tests Test 12/01/19 02:57 12/01/19 03:32 White Blood Count 7.2 x10^3/uL (4.0-11.0) Red Blood Count 5.01 x10^6/uL (4.30-5.70) Hemoglobin 13.8 g/dL (13.0-17.5) Hematocrit 43.3 % (39.0-53.0) Mean Corpuscular Volume 86 fL (79-100) Mean Corpuscular Hemoglobin 28 pg (25-35) Mean Corpuscular Hemoglobin Concent 32 g/dL (31-37) Red Cell Distribution Width 19.9 % (11.5-14.5) H Platelet Count 109 x10^3/uL (140-400) L Neutrophils (%) (Auto) 68 % (31-73) Lymphocytes (%) (Auto) 15 % (24-48) L Monocytes (%) (Auto) 11 % (0-9) H Eosinophils (%) (Auto) 5 % (0-3) H Basophils (%) (Auto) 1 % (0-3) Neutrophils # (Auto) 4.9 x10^3/uL (1.8-7.7) Lymphocytes # (Auto) 1.1 x10^3/uL (1.0-4.8) Monocytes # (Auto) 0.8 x10^3/uL (0.0-1.1) Eosinophils # (Auto) 0.4 x10^3/uL (0.0-0.7) Basophils # (Auto) 0.1 x10^3/uL (0.0-0.2) Sodium Level 136 mmol/L (136-145) Potassium Level 4.4 mmol/L (3.5-5.1) Chloride Level 101 mmol/L (98-107) Carbon Dioxide Level 26 mmol/L (21-32) Anion Gap 9 (6-14) Blood Urea Nitrogen 13 mg/dL (8-26) Creatinine 0.9 mg/dL (0.7-1.3) Estimated GFR (Cockcroft-Gault) 107.6 BUN/Creatinine Ratio 14 (6-20) Glucose Level 139 mg/dL (70-99) H Calcium Level 8.3 mg/dL (8.5-10.1) L Total Bilirubin 0.8 mg/dL (0.2-1.0) Aspartate Amino Transferase (AST) 19 U/L (15-37) Alanine Aminotransferase (ALT) 19 U/L (16-63) Alkaline Phosphatase 139 U/L (46-116) H Troponin I Quantitative < 0.017 ng/mL (0.000-0.055) TM-Qkp-D-Type Natriuretic Peptide 1387 pg/mL (0-124) H Total Protein 7.1 g/dL (6.4-8.2) Albumin 3.1 g/dL (3.4-5.0) L Albumin/Globulin Ratio 0.8 (1.0-1.7) L Influenza Type A Antigen Negative (NEGATIVE) Influenza Type B Antigen Negative (NEGATIVE) Laboratory Tests 12/01/19 02:57 Laboratory Tests 12/01/19 02:57 EKG EKG EKG reviewed, 0 338, sinus tachycardia, heart rate 108, left axis deviation. No STEMI [] Radiology/Procedures Radiology/Procedures [facility] [address] [place], [place] [id number] IMAGING REPORT Signed PATIENT: RICARDO GUTIÉRREZ ACCOUNT: [id number] : 1970 LOCATION: ER AGE: 49 SEX: M EXAM STATUS: PRE ER ORD. PHYSICIAN: EVELYN SMIHT MD REASON: Shortness of Breath/Cough PROCEDURE: PORTABLE CHEST 1V PORTABLE CHEST 1V INDICATION: Dyspnea. COMPARISON STUDY: 01/12/2020. FINDINGS: Lungs: Normal lung volume. No pulmonary mass or consolidation. The tracheobronchial tree and hilar structures are normal. Pleura: No pleural effusion or pneumothorax. Heart and Mediastinum: Cardiomegaly. The great vessels of the thorax are normal. IMPRESSION: No consolidation. Electronically signed by: Selene Tadeo MD (12/01/2019 3:23 AM) [id number] DICTATED and SIGNED BY: SELENE TADEO MD DATE: 12/01/19 0323 [] Course & Med Decision Making Course & Med Decision Making Pertinent Labs and Imaging studies reviewed. (See chart for details) []49-year-old male with history of hypertension, CHF presents to the emergency department complaints of not feeling well x1 week. Patient describes cough, nausea, chills, difficulty catching his breath. Patient has not seen his primary care physician because he does not have insurance. He is not use any dalk-nwd-zpfdjay medications. Nothing makes his symptoms worse, nothing makes his symptoms better. He did not get his influenza swab. Patient denies any headache or visual change, chest pain, abdominal pain. Labs and imaging reviewed, influenza negative, white blood cell count 7.2, troponin within normal limits, BNP 1387 which is around his baseline. Chest x-ray reveals no evidence of acute consolidation or pulmonary edema. Recommend discharge home follow-up as an outpatient with his primary care physician No evidence of acute concerns for admission at this time Discussed if patient develops a fever would recommend quarantine himself for at least 14 days as [place] at 17 can have some GI symptoms. Recommend return to the emergency department for worsening shortness of breath. Dragon Disclaimer Dragon Disclaimer This electronic medical record was generated, in whole or in part, using a voice recognition dictation system. Departure Departure Impression: Primary Impression: Shortness of breath Additional Impression: Fatigue Disposition: 01 HOME, SELF-CARE Condition: STABLE Referrals: JOHNNY LUNA MD (PCP) Patient Instructions: Shortness of Breath, [id number] Additional Instructions: Recommend discharge home Chest x-ray reveals no evidence of acute consolidation or pulmonary edema Influenza negative, troponin (heart enzyme) negative No acute findings for shortness of breath Recommend Tylenol as needed Return to the emergency department with worsening shortness of breath If fever develops would recommend quarantining's yourself for at least 14 days Problem Qualifiers Additional Impression: Fatigue Fatigue type: chronic, unspecified Qualified Codes: R53.82 - Chronic fatigue, unspecified EVELYN SMITH MD Dec 01, 2019 02:55
[2019-12-01] MEDS: IPRATRPIUM/ALBUTEROL 0.5/2.5MG 3 ML NEBU. NEB ONE (03:00)
[2019-12-01 03:10] LABS: BASO # 0.1 x10^3/uL (0.0-0.2); BASO % 1 % (0-3); EOS # 0.4 x10^3/uL (0.0-0.7); EOS % 5 % (0-3); HEMATOCRIT 43.3 % (39.0-53.0); HEMOGLOBIN 13.8 g/dL (13.0-17.5); LYMPH # 1.1 x10^3/uL (1.0-4.8); LYMPH % 15 % (24-48); MEAN CORPUSCULAR HEMOGLOBIN 28 pg (25-35); MEAN CORPUSCULAR HGB CONC 32 g/dL (31-37); MEAN CORPUSCULAR VOLUME 86 fL (79-100); MONO # 0.8 x10^3/uL (0.0-1.1); MONO % 11 % (0-9); NEUT # 4.9 x10^3/uL (1.8-7.7); NEUT % 68 % (31-73); PLATELET COUNT 109 x10^3/uL (140-400); RED BLOOD COUNT 5.01 x10^6/uL (4.30-5.70); RED CELL DISTRIBUTION WIDTH 19.9 % (11.5-14.5); WHITE BLOOD COUNT 7.2 x10^3/uL (4.0-11.0)
[2019-12-01 03:23] LABS: CALCIUM 8.3 mg/dL (8.5-10.1); CREATININE 0.9 mg/dL (0.7-1.3); GFR 107.6; POTASSIUM 4.4 mmol/L (3.5-5.1)
--- NOTE | 2019-12-01 03:26 | RAD ---
PORTABLE CHEST 1V INDICATION: Dyspnea. COMPARISON STUDY: 01/12/2020. FINDINGS: Lungs: Normal lung volume. No pulmonary mass or consolidation. The tracheobronchial tree and hilar structures are normal. Pleura: No pleural effusion or pneumothorax. Heart and Mediastinum: Cardiomegaly. The great vessels of the thorax are normal. IMPRESSION: No consolidation. Electronically signed by: Aidan Tadeo MD (12/01/2019 3:23 AM) [id number]
[2019-12-01 03:28] LABS: ALBUMIN 3.1 g/dL (3.4-5.0); ALBUMIN/GLOBULIN RATIO 0.8 (1.0-1.7); TOTAL BILIRUBIN 0.8 mg/dL (0.2-1.0); TOTAL PROTEIN 7.1 g/dL (6.4-8.2)
[2019-12-01 04:02] LABS: INFLUENZA A PATIENT NEGATIVE (NEGATIVE); INFLUENZA B PATIENT NEGATIVE (NEGATIVE)
--- NOTE | 2019-12-01 05:05 | EKG ---
[facility] [address] [place] [id number] Test Date: 2019-12-01 Test Time: 03:38:00 Pat Name: RICARDO GUTIÉRREZ Department: Room: Gender: M Breakdown Person: : 1970 Requested By: EVELYN SMITH Order Number: [id number] Reading MD: Measurements Intervals [place] Rate: 108 P: -29 [place]: 110 QRS: -5 QRSD: 96 T: 82 QT: 354 QTc: 478 Interpretive Statements SINUS TACHYCARDIA VENTRICULAR PREMATURE COMPLEX(ES) LEFT ATRIAL ABNORMALITY LEFTWARD AXIS R-S TRANSITION ZONE IN V LEADS DISPLACED TO THE LEFT INCOMPLETE RIGHT BUNDLE BRANCH BLOCK QRS(T) CONTOUR ABNORMALITY CONSIDER ANTEROSEPTAL MYOCARDIAL DAMAGE ST & T ABNORMALITY, CONSIDER HIGH LATERAL ISCHEMIA OR LEFT VENTRICULAR STRAIN ABNORMAL ECG No previous ECG available for comparison
[2019-12-01 05:16] VITALS: BP 119/57
== END 2019-12-01 05:19 | disposition home or self-care (01) ==
LOC: ER 02:27
DX: R06.02 Shortness of breath (principal); R53.83 Other fatigue; R05 Cough; R11.0 Nausea; R68.83 Chills (without fever); I11.0 Hypertensive heart disease with heart failure; I50.9 Heart failure, unspecified; K76.9 Liver disease, unspecified; F10.10 Alcohol abuse, uncomplicated; Z98.890 Other specified postprocedural states
CPT/HCPCS: 36415; 71045; 80053; 83880; 84484; 85025; 87804; 93005; 94640; 99285